=== PATIENT | female | born 1960 | race Caucasian/White ===

== ENCOUNTER 2021-07-07 15:55 | Inpatient (IN) | payer BC ==
[2021-07-07] MEDS ORDERED: Sodium Chloride 0.9% 10 ML Syringe FLUSH PRN (16:51)
[2021-07-07] MEDS ORDERED: Ketorolac 30 MG/ML SDV IVPUSH ONE ×2 (17:19→19:11)
--- NOTE | 2021-07-07 17:29 | EDM.PDOC ---
ED HPI GENERAL MEDICAL PROBLEM - General Chief Complaint: Respiratory Problem Stated Complaint: COUGH FEVER CHILLS Time Seen by Provider: 07/07/21 17:12 Source of Information: Reports: Patient, RN Notes Reviewed History Limitations: Reports: No Limitations - History of Present Illness INITIAL COMMENTS - FREE TEXT/NARRATIVE: Patient is a 60-year-old female who presents to the ER for evaluation of a cough fever and chills. States that she has been ill since [place] time with a cough, with some slight hemoptysis. Having a fever and chills with nausea and vomiting but no diarrhea. The patient was mildly hypoxic at the time of triage at 84% on room air. She was placed on 3-1/2 L of oxygen and she is getting O2 sats of around 90 to 91%. Patient's blood pressure is mildly low, at 79/57. She states that she has typically low blood pressure, but cannot tell me the actual values of what it typically is. She was not vaccinated for COVID or flu this year. Patient is having a little bit of back pain associated with this. Chest Pain Score (Numeric/FACES): 8 - Related Data Allergies Allergy/AdvReac Type Severity Reaction Status Date / Time sulfamethoxazole AdvReac Nervousness Verified 07/07/21 16:46 [From Bactrim] trimethoprim [From Bactrim] AdvReac Nervousness Verified 07/07/21 16:46 Home Meds: Home Meds . [No Known Home Meds] 07/07/21 [History] Past Medical History HEENT History: Reports: Impaired Vision Respiratory History: Reports: Other (See Below) Other Respiratory History: Bronchitis Social & Family History - Tobacco Use Tobacco Use Status *Q: Current Every Day Tobacco User Years of Tobacco use: 40 Packs/Tins Daily: 1 Used Tobacco, but Quit: No - Caffeine Use Caffeine Use: Reports: Coffee - Recreational Drug Use Recreational Drug Use: No ED ROS GENERAL - Review of Systems Review Of Systems: Comprehensive ROS is negative, except as noted in HPI. ED EXAM, GENERAL - Physical Exam Exam: See Below Exam Limited By: No Limitations General Appearance: Alert, WD/WN, No Apparent Distress Respiratory/Chest: No Respiratory Distress, Lungs Clear, Normal Breath Sounds, No Accessory Muscle Use, Chest Non-Tender Cardiovascular: Normal Peripheral Pulses, Regular Rate, Rhythm, No Edema GI/Abdominal: Normal Bowel Sounds, Soft, Non-Tender, No Distention, No Mass Extremities: Normal Inspection, Normal Capillary Refill Neurological: Alert, Oriented, Normal Cognition, No Motor/Sensory Deficits Psychiatric: Normal Affect, Normal Mood Skin Exam: Warm, Dry, Intact, Normal Color, No Rash Course - Vital Signs Last Recorded V/S: Last Vital Signs Temp 98.8 F 07/07/21 16:41 Pulse 79 07/07/21 18:29 Resp 20 07/07/21 18:29 BP 77/56 L 07/07/21 18:29 Pulse Ox 91 L 07/07/21 18:29 - Orders/Labs/Meds Orders: Active Orders 24 hr Category Date Time Status Patient Status [ADT] Routine ADT 07/07/21 19:00 Active Peripheral IV Care [RC] . DIRECTED Care 07/07/21 16:51 Active BLOOD CULTURE [MREF] Stat Lab 07/07/21 17:20 Ordered BLOOD CULTURE [MREF] Stat Lab 07/07/21 17:20 Ordered Sodium Chloride 0.9% [Normal Saline] 1,000 ml Med 07/07/21 18:30 Active IV ONETIME Sodium Chloride 0.9% [Normal Saline] 1,000 ml Med 07/07/21 18:37 Active IV ONETIME Sodium Chloride 0.9% [Saline Flush] Med 07/07/21 16:51 Active 10 ml FLUSH ASDIRECTED PRN cefTRIAXone [Rocephin] 2 gm Med 07/07/21 19:11 Ordered Sodium Chloride 0.9% [Normal Saline AdvBag] 100 ml IV ONETIME Blood Culture x2 Reflex Set [OM.PC] Stat Oth 07/07/21 17:20 Ordered Peripheral IV Insertion Adult [OM.PC] Routine Oth 07/07/21 16:51 Ordered Medication Orders Sodium Chloride (Normal Saline) 1,000 mls @ 999 mls/hr IV ONETIME ONE Stop: 07/07/21 19:30 Last Admin: 07/07/21 17:30 Dose: 999 mls/hr Documented by: CHANDLER Sodium Chloride (Normal Saline) 1,000 mls @ 999 mls/hr IV ONETIME ONE Stop: 07/07/21 19:37 Last Admin: 07/07/21 18:38 Dose: 999 mls/hr Documented by: CHANDLER Ceftriaxone Sodium 2 gm/ (Sodium Chloride) 100 mls @ 200 mls/hr IV ONETIME ONE Stop: 07/07/21 19:40 Sodium Chloride (Sodium Chloride 0.9% 10 Ml Syringe) 10 ml FLUSH ASDIRECTED PRN PRN Reason: Keep Vein Open Last Admin: 07/07/21 17:16 Dose: 10 ml Documented by: CHANDLER Labs: Laboratory Tests 07/07/21 07/07/21 07/07/21 Range/Units 16:50 17:17 17:17 WBC 10.19 H (3.98-10.04) K/mm3 RBC 5.15 (3.98-5.22) M/mm3 Hgb 16.2 H (11.2-15.7) gm/dl Hct 48.3 H (34.1-44.9) % MCV 93.8 (79.4-94.8) fl MCH 31.5 (25.6-32.2) pg MCHC 33.5 (32.2-35.5) g/dl RDW Std Deviation 44.0 (36.4-46.3) fL Plt Count 120 L (182-369) K/mm3 MPV 10.7 (9.4-12.3) fl Neut % (Auto) 91.4 H (34.0-71.1) % Lymph % (Auto) 6.2 L (19.3-51.7) % [place] % (Auto) 1.8 L (4.7-12.5) % Eos % (Auto) 0.1 L (0.7-5.8) Baso % (Auto) 0.1 (0.1-1.2) % Neut # (Auto) 9.32 H (1.56-6.13) K/mm3 Lymph # (Auto) 0.63 L (1.18-3.74) K/mm3 [place] # (Auto) 0.18 L (0.24-0.36) K/mm3 Eos # (Auto) 0.01 L (0.04-0.36) K/mm3 Baso # (Auto) 0.01 (0.01-0.08) K/mm3 D-Dimer, Quantitative (0.19-0.50) mg/L Sodium (136-145) mEq/L Potassium (3.5-5.1) mEq/L Chloride (98-107) mEq/L Carbon Dioxide (21-32) mEq/L Anion Gap (5-15) BUN (7-18) mg/dL Creatinine (0.55-1.02) mg/dL Est Cr Clr Drug Dosing mL/min Estimated GFR (MDRD) (>60) mL/min BUN/Creatinine Ratio (14-18) Glucose (70-99) mg/dL Lactic Acid (0.4-2.0) mmol/L Calcium (8.5-10.1) mg/dL Magnesium (1.8-2.4) mg/dL Total Bilirubin (0.2-1.0) mg/dL AST (15-37) U/L ALT (14-59) U/L Alkaline Phosphatase (46-116) U/L C-Reactive Protein 13.8 H* (<1.0) mg/dL Total Protein (6.4-8.2) g/dl Albumin (3.4-5.0) g/dl Globulin gm/dL Albumin/Globulin Ratio (1-2) Influenza Type A RNA Positive H (NEGATIVE) RSV RNA (INAAT) Negative (NEGATIVE) Influenza Type B RNA Negative (NEGATIVE) SARS-CoV-2 RNA (MARLINE) Negative (NEGATIVE) 07/07/21 07/07/21 07/07/21 Range/Units 17:17 17:17 17:17 WBC (3.98-10.04) K/mm3 RBC (3.98-5.22) M/mm3 Hgb (11.2-15.7) gm/dl Hct (34.1-44.9) % MCV (79.4-94.8) fl MCH (25.6-32.2) pg MCHC (32.2-35.5) g/dl RDW Std Deviation (36.4-46.3) fL Plt Count (182-369) K/mm3 MPV (9.4-12.3) fl Neut % (Auto) (34.0-71.1) % Lymph % (Auto) (19.3-51.7) % [place] % (Auto) (4.7-12.5) % Eos % (Auto) (0.7-5.8) Baso % (Auto) (0.1-1.2) % Neut # (Auto) (1.56-6.13) K/mm3 Lymph # (Auto) (1.18-3.74) K/mm3 [place] # (Auto) (0.24-0.36) K/mm3 Eos # (Auto) (0.04-0.36) K/mm3 Baso # (Auto) (0.01-0.08) K/mm3 D-Dimer, Quantitative 0.41 (0.19-0.50) mg/L Sodium 141 (136-145) mEq/L Potassium 4.0 (3.5-5.1) mEq/L Chloride 102 (98-107) mEq/L Carbon Dioxide 27 (21-32) mEq/L Anion Gap 16.0 H (5-15) BUN 15 (7-18) mg/dL Creatinine 1.2 H (0.55-1.02) mg/dL Est Cr Clr Drug Dosing 4.41 mL/min Estimated GFR (MDRD) 46 (>60) mL/min BUN/Creatinine Ratio 12.5 L (14-18) Glucose 122 H (70-99) mg/dL Lactic Acid 1.7 (0.4-2.0) mmol/L Calcium 8.1 L (8.5-10.1) mg/dL Magnesium 1.5 L (1.8-2.4) mg/dL Total Bilirubin 1.2 H (0.2-1.0) mg/dL AST 51 H (15-37) U/L ALT 44 (14-59) U/L Alkaline Phosphatase 58 (46-116) U/L C-Reactive Protein (<1.0) mg/dL Total Protein 6.8 (6.4-8.2) g/dl Albumin 3.2 L (3.4-5.0) g/dl Globulin 3.6 gm/dL Albumin/Globulin Ratio 0.9 L (1-2) Influenza Type A RNA (NEGATIVE) RSV RNA (INAAT) (NEGATIVE) Influenza Type B RNA (NEGATIVE) SARS-CoV-2 RNA (MARLINE) (NEGATIVE) Meds: Medications Generic Name Dose Route Start Last Admin Trade Name Freq PRN Reason Stop Dose Admin Sodium Chloride 1,000 mls @ 999 mls/hr 07/07/21 18:30 07/07/21 17:30 Normal Saline IV 07/07/21 19:30 999 mls/hr ONETIME ONE Administration Sodium Chloride 1,000 mls @ 999 mls/hr 07/07/21 18:37 07/07/21 18:38 Normal Saline IV 07/07/21 19:37 999 mls/hr ONETIME ONE Administration Ceftriaxone Sodium 2 gm/ 100 mls @ 200 mls/hr 07/07/21 19:11 Sodium Chloride IV 07/07/21 19:40 ONETIME ONE Sodium Chloride 10 ml 07/07/21 16:51 07/07/21 17:16 Sodium Chloride 0.9% 10 Ml Syringe FLUSH 10 ml ASDIRECTED PRN Administration Keep Vein Open Discontinued Medications Generic Name Dose Route Start Last Admin Trade Name Freq PRN Reason Stop Dose Admin Ampicillin Sodium/Sulbactam 100 mls @ 200 mls/hr 07/07/21 19:09 Sodium 3 gm/ Sodium Chloride IV 07/07/21 19:38 ONETIME ONE Ketorolac Tromethamine 30 mg 07/07/21 17:19 07/07/21 17:57 Ketorolac 30 Mg/Ml Sdv IVPUSH 07/07/21 17:20 30 mg ONETIME ONE Administration Ketorolac Tromethamine 30 mg 07/07/21 19:11 Ketorolac 30 Mg/Ml Sdv IVPUSH 07/07/21 19:12 ONETIME ONE Ondansetron HCl Confirm 07/07/21 17:12 07/07/21 17:58 Ondansetron 4 Mg/2 Ml Sdv Administered 07/07/21 17:13 Not Given Dose 4 mg .ROUTE .STK-MED ONE Ondansetron HCl 4 mg 07/07/21 17:57 07/07/21 17:58 Ondansetron 4 Mg/2 Ml Sdv IVPUSH 07/07/21 17:58 4 mg ONETIME ONE Administration - Re-Assessments/Exams Free Text/Narrative Re-Assessment/Exam: 07/07/21 17:26 Patient presents to the ER for evaluation of her fever chills and cough. Likely she has COVID-19 due to her hypoxia. Patient is stable at this time, big of IV fluids has been ordered along with Zofran at the time of triage. We will go ahead and give her some Toradol initial pain management. We will go ahead and do Covid/flu/RSV screen as well as some labs for ongoing management. 07/07/21 18:19 Patient's influenza A is positive and COVID and RSV were negative. Patient's white count mildly elevated at 10 0.19 with 91% neutrophils, metabolic panel demonstrates a creatinine slightly elevated 1.2, magnesium low at 1.5, lactic acid within normal limits at 1.7, CRP elevated at 13.8. D-dimer was within normal limits. Was able to look at the patient's chest x-ray, and there is concern for some haziness in the left lung field, possible pneumonia. Blood pressure still low at 77/56. 07/07/21 18:52 Patient states she is feeling better, and again assures me that her blood pressure typically low but thinks it is in the 90s systolically she is getting a second bag of fluids for this. Lactic acid was within normal limits, so it does not look as if she is septic but chest x-ray did come back as diffuse increased density within the left upper and left lower lung as well as the right lower lung findings most likely represent diffuse bilateral pneumonia. 07/07/21 19:15 Is able to speak with Dr. Alamo, our hospitalist on-call and he does accept the patient for admission. Departure - Departure Time of Disposition: 19:15 Disposition: Admitted As Inpatient 65 Condition: Fair Clinical Impression: Hypoxia, Influenza A Pneumonia Qualifiers: Pneumonia type: due to unspecified organism Laterality: right Lung location: upper lobe of lung Qualified Code(s): J18.9 - Pneumonia, unspecified organism - Discharge Information Referrals: Milind Rodriguez MD [Primary Care Provider] - Forms: ED Department Discharge Sepsis Event Note (ED) - Evaluation Sepsis Screening Result: Possible Sepsis Risk - Focused Exam Vital Signs: Vital Signs Temp Pulse Resp BP Pulse Ox 07/07/21 18:29 79 20 77/56 L 91 L 07/07/21 17:27 84 22 H 79/57 L 89 L 07/07/21 16:41 98.8 F 95 26 H 80/64 L 84 L - My Orders Last 24 Hours: My Active Orders 07/07/21 16:51 Peripheral IV Care [RC] . DIRECTED Sodium Chloride 0.9% [Saline Flush] 10 ml FLUSH ASDIRECTED PRN Peripheral IV Insertion Adult [OM.PC] Routine 07/07/21 17:20 BLOOD CULTURE [MREF] Stat BLOOD CULTURE [MREF] Stat Blood Culture x2 Reflex Set [OM.PC] Stat 07/07/21 18:30 Sodium Chloride 0.9% [Normal Saline] 1,000 ml IV ONETIME 07/07/21 18:37 Sodium Chloride 0.9% [Normal Saline] 1,000 ml IV ONETIME 07/07/21 19:00 Patient Status [ADT] Routine 07/07/21 19:11 cefTRIAXone [Rocephin] 2 gm Sodium Chloride 0.9% [Normal Saline AdvBag] 100 ml IV ONETIME - Assessment/Plan Last 24 Hours: My Active Orders 07/07/21 16:51 Peripheral IV Care [RC] . DIRECTED Sodium Chloride 0.9% [Saline Flush] 10 ml FLUSH ASDIRECTED PRN Peripheral IV Insertion Adult [OM.PC] Routine 07/07/21 17:20 BLOOD CULTURE [MREF] Stat BLOOD CULTURE [MREF] Stat Blood Culture x2 Reflex Set [OM.PC] Stat 07/07/21 18:30 Sodium Chloride 0.9% [Normal Saline] 1,000 ml IV ONETIME 07/07/21 18:37 Sodium Chloride 0.9% [Normal Saline] 1,000 ml IV ONETIME 07/07/21 19:00 Patient Status [ADT] Routine 07/07/21 19:11 cefTRIAXone [Rocephin] 2 gm Sodium Chloride 0.9% [Normal Saline AdvBag] 100 ml IV ONETIME
[2021-07-07 17:44] LABS: CORONAVIRUS COVID-19 NAA NEGATIVE (NEGATIVE)
[2021-07-07] MEDS ORDERED: Ondansetron 4 MG/2 ML SDV IVPUSH ONE (17:57)
[2021-07-07] MEDS: Ondansetron 4 MG/2 ML SDV ONE ×2 (17:57→17:58)
[2021-07-07] MEDS ORDERED: Sodium Chloride 0.9% 1,000 ML IV ONE ×2 (18:30→18:37)
--- NOTE | 2021-07-07 18:44 | CR ---
Chest: Portable view of the chest was obtained. Comparison: Prior CT chest of 02/22/19 and prior chest x-ray of . Heart size and mediastinum are normal. Patchy increased density is seen within the left upper and left lower lung as well as right lower lung. Bony structures show nothing acute. Impression: 1. Diffuse increased density within the left upper and left lower lung as well as right lower lung. Findings most likely represent diffuse bilateral pneumonia. Please correlate with patient's symptoms. Diagnostic code #3
[2021-07-07] MEDS ORDERED: Ampicillin/Sulbactam Na 3 GM in Sodium Chloride 0.9% 100 ML IV ONE (19:09)
[2021-07-07] MEDS ORDERED: cefTRIAXone 2 GM in Sodium Chloride 0.9% 100 ML IV ONE (19:11)
--- NOTE | 2021-07-07 20:36 | PCM.HP.2 ---
H&P History of Present Illness - General Date of Service: 07/07/21 Admit Problem/Dx: Admission Diagnosis/Problem Admission Diagnosis/Problem Hypoxia/influenza/pneumonia/pleurasy Source of Information: Patient, EMS Notes Reviewed, Provider History Limitations: Reports: No Limitations - History of Present Illness Initial Comments - Free Text/Narative: 60 year old female with fever chills cough body aches and malaise loss of appetite 3 days ago. nauseated but no vomiting . increasing left back pain and pleurisy left flank developing today . infl screen pos. and covid neg but no vaccinations to either. given i.v fluids for low b.p in e.r. p.e. vs as noted patient sats 92 rr 22 b.p 96/64 skin warm and perfusion good. tongue dry. throat mild redness. shows crackles in left and rt posterior lung umanzor. ? friction rub left anterior splinting slightly , cor rrr 112 abd benign. ext. no clubbing /cap refill good. neuro aox4 minor chest xray bilateral lower lobe infiltrates (lobar on left.) lab normal d dimer.43 normal. influenza a + /// cvoid -. assess: influenza with secondary pneumonia start Rocephin and azithromycin for community type pneumonia and consider ct scan for ruling out empyema (pleurisy left sided dullness and ? friction rub heard.) situation discussed with patient and and she is feeling better alr iqra so will reassess response overnight. boh Onset of Symptoms: Reports: Sudden Duration of Symptoms: Reports: Day(s): (4), Getting Worse Location: Reports: Chest Quality: Reports: Sharp Severity: Moderate Improves with: Reports: None Worsens with: Reports: Breathing Associated Symptoms: Reports: Cough, Fever/Chills, Loss of Appetite, Malaise, Nausea/Vomiting, Shortness of Breath Other HPI/Comments: left pleurisy Chest Pain Score (Numeric/FACES): 8 - Related Data Allergies/Adverse Reactions: Allergies Allergy/AdvReac Type Severity Reaction Status Date / Time sulfamethoxazole AdvReac Nervousness Verified 07/07/21 16:46 [From Bactrim] trimethoprim [From Bactrim] AdvReac Nervousness Verified 07/07/21 16:46 Home Medications: Home Meds . [No Known Home Meds] 07/07/21 [History] Past Medical History - Past Health History Medical/Surgical History: Denies Medical/Surgical History HEENT History: Reports: Impaired Vision Respiratory History: Reports: Other (See Below) Other Respiratory History: Bronchitis Social & Family History - Tobacco Use Tobacco Use Status *Q: Current Every Day Tobacco User Tobacco Use Within Last Twelve Months: Cigarettes Years of Tobacco use: 40 Packs/Tins Daily: 1 Used Tobacco, but Quit: No - Caffeine Use Caffeine Use: Reports: Coffee - Recreational Drug Use Recreational Drug Use: No H&P Review of Systems - Review of Systems: Review Of Systems: See Below General: Reports: Fever, Chills, Malaise, Decreased Appetite. Denies: Di aphoresis HEENT: Reports: No Symptoms Pulmonary: Reports: Shortness of Breath, Pleuritic Chest Pain, Hemoptysis Cardiovascular: Reports: No Symptoms Gastrointestinal: Reports: No Symptoms, Anorexia Genitourinary: Reports: No Symptoms Musculoskeletal: Reports: No Symptoms Skin: Reports: No Symptoms Psychiatric: Reports: No Symptoms Neurological: Reports: No Symptoms Hematologic/Lymphatic: Reports: No Symptoms Immunologic: Reports: No Symptoms Exam - Exam Exam: See Below - Vital Signs Vital Signs: Last Vital Signs Temp 37.1 C 07/07/21 16:41 Pulse 79 07/07/21 18:29 Resp 20 07/07/21 18:29 BP 77/56 L 07/07/21 18:29 Pulse Ox 91 L 07/07/21 18:29 Weight: 5.67 kg - Exam Quality Assessment: Supplemental Oxygen General: Alert, Oriented, 4 HEENT: PERRLA, Hearing Intact, Mucosa Moist & [place], Nares Patent, Normal Nasal Septum, Posterior Pharynx Clear, Conjunctiva Clear, EOMI, EACs Clear, TMs Clear Neck: Supple, Trachea Midline, 2 Lungs: Clear to Auscultation, Normal Respiratory Effort, Decreased Breath Sounds, Crackles, Other ( ?left anterior velcro sounds) Cardiovascular: Regular Rate, Regular Rhythm GI/Abdominal Exam: Normal Bowel Sounds, Soft, Non-Tender, No Organomegaly, No Distention, No Abnormal Bruit, No Mass, Pelvis Stable (Female) Exam: Normal External Exam, Normal Speculum Exam, Normal Bimanual Exam Rectal (Female) Exam: Normal Exam, Normal Rectal Tone Back Exam: Normal Inspection, Full Range of Motion, NT Extremities: Normal Inspection, Normal Range of Motion, Non-Tender, No Pedal Edema, Normal Capillary Refill Skin: Warm, Dry, Intact Neurological: Cranial Nerves Intact, Reflexes Equal Bilateral Neuro Extensive - Mental Status: Alert, Oriented x3, Normal Mood/Affect, Normal Cognition Neuro Extensive - Motor, Sensory, Reflexes: CN II-XII Intact, Normal Gait, Normal Reflexes Psychiatric: Alert, Normal Affect, Normal Mood - Patient Data Lab Results Last 24 hrs: Laboratory Results - last 24 hr 07/07/21 07/07/21 07/07/21 Range/Units 16:50 17:17 17:17 WBC 10.19 H (3.98-10.04) K/mm3 RBC 5.15 (3.98-5.22) M/mm3 Hgb 16.2 H (11.2-15.7) gm/dl Hct 48.3 H (34.1-44.9) % MCV 93.8 (79.4-94.8) fl MCH 31.5 (25.6-32.2) pg MCHC 33.5 (32.2-35.5) g/dl RDW Std Deviation 44.0 (36.4-46.3) fL Plt Count 120 L (182-369) K/mm3 MPV 10.7 (9.4-12.3) fl Neut % (Auto) 91.4 H (34.0-71.1) % Lymph % (Auto) 6.2 L (19.3-51.7) % [place]on % (Auto) 1.8 L (4.7-12.5) % Eos % (Auto) 0.1 L (0.7-5.8) Baso % (Auto) 0.1 (0.1-1.2) % Neut # (Auto) 9.32 H (1.56-6.13) K/mm3 Lymph # (Auto) 0.63 L (1.18-3.74) K/mm3 Weston # (Auto) 0.18 L (0.24-0.36) K/mm3 Eos # (Auto) 0.01 L (0.04-0.36) K/mm3 Baso # (Auto) 0.01 (0.01-0.08) K/mm3 Manual Slide Review Abnormal smear D-Dimer, Quantitative (0.19-0.50) mg/L Sodium (136-145) mEq/L Potassium (3.5-5.1) mEq/L Chloride (98-107) mEq/L Carbon Dioxide (21-32) mEq/L Anion Gap (5-15) BUN (7-18) mg/dL Creatinine (0.55-1.02) mg/dL Est Cr Clr Drug Dosing mL/min Estimated GFR (MDRD) (>60) mL/min BUN/Creatinine Ratio (14-18) Glucose (70-99) mg/dL Lactic Acid (0.4-2.0) mmol/L Calcium (8.5-10.1) mg/dL Magnesium (1.8-2.4) mg/dL Total Bilirubin (0.2-1.0) mg/dL AST (15-37) U/L ALT (14-59) U/L Alkaline Phosphatase (46-116) U/L C-Reactive Protein 13.8 H* (<1.0) mg/dL Total Protein (6.4-8.2) g/dl Albumin (3.4-5.0) g/dl Globulin gm/dL Albumin/Globulin Ratio (1-2) Influenza Type A RNA Positive H (NEGATIVE) RSV RNA (INAAT) Negative (NEGATIVE) Influenza Type B RNA Negative (NEGATIVE) SARS-CoV-2 RNA (MARLINE) Negative (NEGATIVE) 07/07/21 07/07/21 07/07/21 Range/Units 17:17 17:17 17:17 WBC (3.98-10.04) K/mm3 RBC (3.98-5.22) M/mm3 Hgb (11.2-15.7) gm/dl Hct (34.1-44.9) % MCV (79.4-94.8) fl MCH (25.6-32.2) pg MCHC (32.2-35.5) g/dl RDW Std Deviation (36.4-46.3) fL Plt Count (182-369) K/mm3 MPV (9.4-12.3) fl Neut % (Auto) (34.0-71.1) % Lymph % (Auto) (19.3-51.7) % Weston % (Auto) (4.7-12.5) % Eos % (Auto) (0.7-5.8) Baso % (Auto) (0.1-1.2) % Neut # (Auto) (1.56-6.13) K/mm3 Lymph # (Auto) (1.18-3.74) K/mm3 [place]on # (Auto) (0.24-0.36) K/mm3 Eos # (Auto) (0.04-0.36) K/mm3 Baso # (Auto) (0.01-0.08) K/mm3 Manual Slide Review D-Dimer, Quantitative 0.41 (0.19-0.50) mg/L Sodium 141 (136-145) mEq/L Potassium 4.0 (3.5-5.1) mEq/L Chloride 102 (98-107) mEq/L Carbon Dioxide 27 (21-32) mEq/L Anion Gap 16.0 H (5-15) BUN 15 (7-18) mg/dL Creatinine 1.2 H (0.55-1.02) mg/dL Est Cr Clr Drug Dosing 4.41 mL/min Estimated GFR (MDRD) 46 (>60) mL/min BUN/Creatinine Ratio 12.5 L (14-18) Glucose 122 H (70-99) mg/dL Lactic Acid 1.7 (0.4-2.0) mmol/L Calcium 8.1 L (8.5-10.1) mg/dL Magnesium 1.5 L (1.8-2.4) mg/dL Total Bilirubin 1.2 H (0.2-1.0) mg/dL AST 51 H (15-37) U/L ALT 44 (14-59) U/L Alkaline Phosphatase 58 (46-116) U/L C-Reactive Protein (<1.0) mg/dL Total Protein 6.8 (6.4-8.2) g/dl Albumin 3.2 L (3.4-5.0) g/dl Globulin 3.6 gm/dL Albumin/Globulin Ratio 0.9 L (1-2) Influenza Type A RNA (NEGATIVE) RSV RNA (INAAT) (NEGATIVE) Influenza Type B RNA (NEGATIVE) SARS-CoV-2 RNA (MARLINE) (NEGATIVE) Result Diagrams: 07/07/21 17:17 07/07/21 17:17 Sepsis Event Note - Evaluation Sepsis Screening Result: Possible Sepsis Risk Possible Source of Sepsis: Pulmonary - Focused Exam Vital Signs: Vital Signs Temp Pulse Resp BP Pulse Ox 07/07/21 18:29 79 20 77/56 L 91 L 07/07/21 17:27 84 22 H 79/57 L 89 L 07/07/21 16:41 37.1 C 95 26 H 80/64 L 84 L Respiratory Effort Without Exertion: Dyspneic Capillary Refill, Detail: Less than/Equal to (</=) 2 Seconds Pulse Description: 2+ Normal Peripheral Pulse Location: Radial Skin Exam (Focused Sepsis): Normal Turgor - Bedside Monitoring CVP Measures: Less than 8 Bedside Ultrasound Performed: No Passive Leg Raise/Fluid Bolus: Negative, Not Performed Date Bedside Monitoring was Performed: 07/07/21 Time Bedside Monitoring was Performed: 20:43 - Problem List (1) Chest pain, pleuritic SNOMED Code(s): 6135698 ICD Code: R07.81 - PLEURODYNIA Status: Acute Priority: Medium Current Visit: Yes Onset Date: ~07/07/21 Problem Details: left pleurisy (2) Thrombocytopenia SNOMED Code(s): 028727828 ICD Code: D69.6 - THROMBOCYTOPENIA, UNSPECIFIED Status: Acute Priority: Medium Current Visit: Yes Onset Date: ~07/07/21 Problem Details: will need eval . (3) Hypoxia SNOMED Code(s): 704202876 ICD Code: R09.02 - HYPOXEMIA Status: Acute Priority: Medium Current Visit: No Onset Date: ~07/07/21 Problem Details: underlying lung changes suggest copd (4) Influenza A SNOMED Code(s): 044066499 ICD Code: J10.1 - FLU DUE TO OTH IDENT INFLUENZA VIRUS W OTH RESP MANIFEST Status: Acute Priority: Medium Current Visit: No Onset Date: ~07/07/21 Problem Details: too late for tamiflu (5) Pneumonia SNOMED Code(s): 588900991 ICD Code: J18.9 - PNEUMONIA, UNSPECIFIED ORGANISM Status: Acute Priority: Medium Current Visit: No Onset Date: ~07/07/21 Problem Details: rocephin and azythromycin Qualifiers: Pneumonia type: due to unspecified organism Laterality: bilateral Lung location: upper lobe of lung Qualified Code(s): J18.9 - Pneumonia, unspecified organism Problem List Initiated/Reviewed/Updated: Yes Orders Last 24hrs: Active Orders 24 hr Category Date Time Status Patient Status [ADT] Routine ADT 07/07/21 19:00 Active Peripheral IV Care [RC] . DIRECTED Care 07/07/21 16:51 Active BLOOD CULTURE [MREF] Stat Lab 07/07/21 17:29 Received BLOOD CULTURE [MREF] Stat Lab 07/07/21 17:36 Received Sodium Chloride 0.9% [Saline Flush] Med 07/07/21 16:51 Active 10 ml FLUSH ASDIRECTED PRN Blood Culture x2 Reflex Set [OM.PC] Stat Oth 07/07/21 17:20 Ordered Peripheral IV Insertion Adult [OM.PC] Routine Oth 07/07/21 16:51 Ordered Medication Orders Sodium Chloride (Sodium Chloride 0.9% 10 Ml Syringe) 10 ml FLUSH ASDIRECTED PRN PRN Reason: Keep Vein Open Last Admin: 07/07/21 17:16 Dose: 10 ml Documented by: CHANDLER Assessment/Plan Comment:: [age] year old female with fever chills cough body aches and malaise loss of appetite 4 days ago. nauseated but no vomiting . increasing left back pain and pleurisy left flank developing today . infl screen pos. and covid neg but no vaccinations to either. given i.v fluids for low b.p in e.r. p.e. vs as noted patient sats 92 rr 22 b.p 96/64 skin warm and perfusion good. tongue dry. throat mild redness. shows crackles in left and rt posterior lung umanzor. ? friction rub left anterior splinting slightly , cor rrr 112 abd benign. ext. no clubbing /cap refill good. neuro aox4 minor chest xray bilateral lower lobe infiltrates (lobar on left.) lab normal d dimer.43 normal. influenza a + /// cvoid -. assess: influenza with secondary pneumonia start Rocephin and azithromycin for community type pneumonia and consider ct scan for ruling out empyema (pleurisy left sided dullness and ? friction rub heard.) situation discussed with patient and and she is feeling better already so will reassess response overnight. boh - Mortality Measure Prognosis:: Good
[2021-07-07] MEDS ORDERED: Acetaminophen 325 MG Tab PO PRN (20:51)
[2021-07-07] MEDS ORDERED: Pantoprazole 40 MG Vial ONE (20:51)
[2021-07-07] MEDS ORDERED: Ondansetron 4 MG Tab.DIS PO PRN (20:51)
[2021-07-07] MEDS ORDERED: Lactated Ringers 1,000 ML ONE (20:52)
[2021-07-07] MEDS ORDERED: Enoxaparin 30 MG/0.3 ML Syringe SUBCUT SCH (21:00)
[2021-07-07] MEDS ORDERED: Sodium Chloride 0.9% 500 ML IV ONE (21:05)
[2021-07-07] MEDS: Lactated Ringers 1,000 ML IV SCH (21:15)
[2021-07-07] MEDS ORDERED: Pantoprazole 40 MG Vial IVPUSH ONE (23:45)
[2021-07-07] MEDS: Azithromycin 500 MG in Sodium Chloride 0.9% 250 ML IV SCH (23:51)
[2021-07-07] MEDS: Acetaminophen/HYDROcodone 325-5 MG Tab PO PRN (23:54)
[2021-07-08] MEDS ORDERED: Enoxaparin 30 MG/0.3 ML Syringe SUBCUT SCH
[2021-07-08] MEDS: Zolpidem 5 MG Tab PO PRN (00:58)
[2021-07-08] MEDS ORDERED: Sodium Chloride 0.9% 500 ML IV ONE (01:15)
[2021-07-08] MEDS: Norepinephrine 4 MG in Dextrose 5% in Water 246 ML IV SCH ×4 (03:48→15:22)
[2021-07-08] MEDS: Acetaminophen/HYDROcodone 325-5 MG Tab PO PRN ×3 (05:40→18:59)
[2021-07-08] MEDS: Lactated Ringers 1,000 ML IV SCH ×2 (05:52→14:15)
--- NOTE | 2021-07-08 08:12 | PCM.PN ---
- General Info Date of Service: 07/08/21 Admission Dx/Problem (Free Text): Admission Diagnosis/Problem Admission Diagnosis/Problem Hypoxia/influenza/pneumonia/pleurasy Subjective Update: The patient is a 60-year-old lady who had been admitted to acute hospitalization yesterday due to hypoxia with influenza a and associated pneumonia. The patient has been on pressors for hypotension and is currently in the ICU. The patient is doing well. She has been tolerating her diet. She does not feel short of breath. She says she does not use oxygen at home. Functional Status: Reports: Pain Controlled, Tolerating Diet. Denies: New Symptoms - Review of Systems General: Reports: No Symptoms HEENT: Reports: No Symptoms Pulmonary: Reports: No Symptoms Cardiovascular: Reports: No Symptoms Gastrointestinal: Reports: No Symptoms Genitourinary: Reports: No Symptoms Musculoskeletal: Reports: No Symptoms Skin: Reports: No Symptoms Neurological: Reports: No Symptoms Psychiatric: Reports: No Symptoms - Patient Data Vitals - Most Recent: Last Vital Signs Temp 35.9 C L 07/07/21 23:10 Pulse 79 07/07/21 18:29 Resp 20 07/07/21 19:10 BP 82/59 L 07/07/21 23:10 Pulse Ox 93 L 07/07/21 20:54 Weight - Most Recent: 60.056 kg I&O - Last 24 Hours: Intake & Output 07/07/21 07/08/21 07/08/21 22:59 06:59 14:59 Intake Total 40 Output Total 100 Balance -60 Lab Results Last 24 Hours: Laboratory Results - last 24 hr 07/07/21 07/07/21 07/07/21 Range/Units 16:50 17:17 17:17 WBC 10.19 H (3.98-10.04) K/mm3 RBC 5.15 (3.98-5.22) M/mm3 Hgb 16.2 H (11.2-15.7) gm/dl Hct 48.3 H (34.1-44.9) % MCV 93.8 (79.4-94.8) fl MCH 31.5 (25.6-32.2) pg MCHC 33.5 (32.2-35.5) g/dl RDW Std Deviation 44.0 (36.4-46.3) fL Plt Count 120 L (182-369) K/mm3 MPV 10.7 (9.4-12.3) fl Neut % (Auto) 91.4 H (34.0-71.1) % Lymph % (Auto) 6.2 L (19.3-51.7) % [place] % (Auto) 1.8 L (4.7-12.5) % Eos % (Auto) 0.1 L (0.7-5.8) Baso % (Auto) 0.1 (0.1-1.2) % Neut # (Auto) 9.32 H (1.56-6.13) K/mm3 Lymph # (Auto) 0.63 L (1.18-3.74) K/mm3 [place] # (Auto) 0.18 L (0.24-0.36) K/mm3 Eos # (Auto) 0.01 L (0.04-0.36) K/mm3 Baso # (Auto) 0.01 (0.01-0.08) K/mm3 Manual Slide Review Abnormal smear ESR (0-20) mm/hr D-Dimer, Quantitative (0.19-0.50) mg/L Sodium (136-145) mEq/L Potassium (3.5-5.1) mEq/L Chloride (98-107) mEq/L Carbon Dioxide (21-32) mEq/L Anion Gap (5-15) BUN (7-18) mg/dL Creatinine (0.55-1.02) mg/dL Est Cr Clr Drug Dosing mL/min Estimated GFR (MDRD) (>60) mL/min BUN/Creatinine Ratio (14-18) Glucose (70-99) mg/dL Lactic Acid (0.4-2.0) mmol/L Calcium (8.5-10.1) mg/dL Magnesium (1.8-2.4) mg/dL Total Bilirubin (0.2-1.0) mg/dL AST (15-37) U/L ALT (14-59) U/L Alkaline Phosphatase (46-116) U/L C-Reactive Protein 13.8 H* (<1.0) mg/dL Total Protein (6.4-8.2) g/dl Albumin (3.4-5.0) g/dl Globulin gm/dL Albumin/Globulin Ratio (1-2) Influenza Type A RNA Positive H (NEGATIVE) RSV RNA (INAAT) Negative (NEGATIVE) Influenza Type B RNA Negative (NEGATIVE) SARS-CoV-2 RNA (MARLINE) Negative (NEGATIVE) 07/07/21 07/07/21 07/07/21 Range/Units 17:17 17:17 17:17 WBC (3.98-10.04) K/mm3 RBC (3.98-5.22) M/mm3 Hgb (11.2-15.7) gm/dl Hct (34.1-44.9) % MCV (79.4-94.8) fl MCH (25.6-32.2) pg MCHC (32.2-35.5) g/dl RDW Std Deviation (36.4-46.3) fL Plt Count (182-369) K/mm3 MPV (9.4-12.3) fl Neut % (Auto) (34.0-71.1) % Lymph % (Auto) (19.3-51.7) % [place] % (Auto) (4.7-12.5) % Eos % (Auto) (0.7-5.8) Baso % (Auto) (0.1-1.2) % Neut # (Auto) (1.56-6.13) K/mm3 Lymph # (Auto) (1.18-3.74) K/mm3 [place] # (Auto) (0.24-0.36) K/mm3 Eos # (Auto) (0.04-0.36) K/mm3 Baso # (Auto) (0.01-0.08) K/mm3 Manual Slide Review ESR (0-20) mm/hr D-Dimer, Quantitative 0.41 (0.19-0.50) mg/L Sodium 141 (136-145) mEq/L Potassium 4.0 (3.5-5.1) mEq/L Chloride 102 (98-107) mEq/L Carbon Dioxide 27 (21-32) mEq/L Anion Gap 16.0 H (5-15) BUN 15 (7-18) mg/dL Creatinine 1.2 H (0.55-1.02) mg/dL Est Cr Clr Drug Dosing 4.41 mL/min Estimated GFR (MDRD) 46 (>60) mL/min BUN/Creatinine Ratio 12.5 L (14-18) Glucose 122 H (70-99) mg/dL Lactic Acid 1.7 (0.4-2.0) mmol/L Calcium 8.1 L (8.5-10.1) mg/dL Magnesium 1.5 L (1.8-2.4) mg/dL Total Bilirubin 1.2 H (0.2-1.0) mg/dL AST 51 H (15-37) U/L ALT 44 (14-59) U/L Alkaline Phosphatase 58 (46-116) U/L C-Reactive Protein (<1.0) mg/dL Total Protein 6.8 (6.4-8.2) g/dl Albumin 3.2 L (3.4-5.0) g/dl Globulin 3.6 gm/dL Albumin/Globulin Ratio 0.9 L (1-2) Influenza Type A RNA (NEGATIVE) RSV RNA (INAAT) (NEGATIVE) Influenza Type B RNA (NEGATIVE) SARS-CoV-2 RNA (MARLINE) (NEGATIVE) 07/07/21 07/07/21 07/07/21 Range/Units 21:13 21:13 21:13 WBC 10.96 H (3.98-10.04) K/mm3 RBC 4.50 (3.98-5.22) M/mm3 Hgb 14.2 D (11.2-15.7) gm/dl Hct 42.2 (34.1-44.9) % MCV 93.8 (79.4-94.8) fl MCH 31.6 (25.6-32.2) pg MCHC 33.6 (32.2-35.5) g/dl RDW Std Deviation 43.9 (36.4-46.3) fL Plt Count 109 L (182-369) K/mm3 MPV 11.2 (9.4-12.3) fl Neut % (Auto) 93.6 H (34.0-71.1) % Lymph % (Auto) 4.2 L (19.3-51.7) % [place] % (Auto) 1.6 L (4.7-12.5) % Eos % (Auto) 0 L (0.7-5.8) Baso % (Auto) 0.1 (0.1-1.2) % Neut # (Auto) 10.26 H (1.56-6.13) K/mm3 Lymph # (Auto) 0.46 L (1.18-3.74) K/mm3 [place] # (Auto) 0.18 L (0.24-0.36) K/mm3 Eos # (Auto) 0.00 L (0.04-0.36) K/mm3 Baso # (Auto) 0.01 (0.01-0.08) K/mm3 Manual Slide Review Abnormal smear ESR 7 (0-20) mm/hr D-Dimer, Quantitative (0.19-0.50) mg/L Sodium 141 (136-145) mEq/L Potassium 3.9 (3.5-5.1) mEq/L Chloride 108 H (98-107) mEq/L Carbon Dioxide 22 (21-32) mEq/L Anion Gap 14.9 (5-15) BUN 14 (7-18) mg/dL Creatinine 0.3 L (0.55-1.02) mg/dL Est Cr Clr Drug Dosing 170.05 mL/min Estimated GFR (MDRD) > 60 (>60) mL/min BUN/Creatinine Ratio 46.7 H (14-18) Glucose 119 H (70-99) mg/dL Lactic Acid (0.4-2.0) mmol/L Calcium 6.8 L (8.5-10.1) mg/dL Magnesium (1.8-2.4) mg/dL Total Bilirubin 0.6 (0.2-1.0) mg/dL AST 34 (15-37) U/L ALT 34 (14-59) U/L Alkaline Phosphatase 45 L (46-116) U/L C-Reactive Protein 14.5 H* (<1.0) mg/dL Total Protein 4.9 L (6.4-8.2) g/dl Albumin 2.4 L (3.4-5.0) g/dl Globulin 2.5 gm/dL Albumin/Globulin Ratio 1.0 (1-2) Influenza Type A RNA (NEGATIVE) RSV RNA (INAAT) (NEGATIVE) Influenza Type B RNA (NEGATIVE) SARS-CoV-2 RNA (MARLINE) (NEGATIVE) Med Orders - Current: Current Medications Acetaminophen (Acetaminophen 325 Mg Tab) 650 mg PO Q4H PRN PRN Reason: Pain (Mild 1-3)/fever Hydrocodone Bitart/Acetaminophen (Acetaminophen/Hydrocodone 325-5 Mg Tab) 2 tab PO Q4H PRN PRN Reason: Pain (moderate 4-6) Last Admin: 07/08/21 05:40 Dose: 2 tab Documented by: Albuterol (Albuterol 0.083% 2.5 Mg/3 Ml Neb Soln) 2.5 mg NEB Q2H PRN PRN Reason: Shortness Of Breath/wheezing Enoxaparin Sodium (Enoxaparin 40 Mg/0.4 Ml Syringe) 40 mg SUBCUT BEDTIME ALFONSO Lactated Ringer's (Ringers, Lactated) 1,000 mls @ 125 mls/hr IV ASDIRECTED ALFONSO Last Admin: 07/07/21 21:15 Dose: 125 mls/hr Documented by: Ceftriaxone Sodium 2 gm/ (Sodium Chloride) 100 mls @ 200 mls/hr IV BEDTIME ALFONSO Azithromycin 500 mg/ Sodium (Chloride) 250 mls @ 250 mls/hr IV Q24H ALFONSO Last Admin: 07/07/21 23:51 Dose: 250 mls/hr Documented by: Lactated Ringer's (Ringers, Lactated) 1,000 mls @ 125 mls/hr IV ASDIRECTED ALFONSO Last Admin: 07/08/21 05:52 Dose: 125 mls/hr Documented by: Norepinephrine Bitartrate 4 mg (/ Dextrose/Water) 250 mls @ 7.5 mls/hr IV TITRATE ALFONSO; Protocol Last Titration: 07/08/21 06:52 Dose: 6 mcg/min, 22.5 mls/hr Documented by: Ibuprofen (Ibuprofen 600 Mg Tab) 600 mg PO Q6H PRN PRN Reason: Pain (moderate 4-6) Ondansetron HCl (Ondansetron 4 Mg Tab.Dis) 8 mg PO Q6H PRN PRN Reason: Nausea/Vomiting Sodium Chloride (Sodium Chloride 0.9% 10 Ml Syringe) 10 ml FLUSH ASDIRECTED PRN PRN Reason: Keep Vein Open Last Admin: 07/07/21 17:16 Dose: 10 ml Documented by: Zolpidem Tartrate (Zolpidem 5 Mg Tab) 5 mg PO BEDTIME PRN PRN Reason: Sleep Last Admin: 07/08/21 00:58 Dose: 5 mg Documented by: Discontinued Medications Enoxaparin Sodium (Enoxaparin 30 Mg/0.3 Ml Syringe) 30 mg SUBCUT BEDTIME ALFONSO Enoxaparin Sodium (Enoxaparin 30 Mg/0.3 Ml Syringe) 30 mg SUBCUT BEDTIME ALFONSO Last Admin: 07/08/21 00:05 Dose: 30 mg Documented by: Sodium Chloride (Normal Saline) 1,000 mls @ 999 mls/hr IV ONETIME ONE Stop: 07/07/21 19:30 Last Admin: 07/07/21 17:30 Dose: 999 mls/hr Documented by: Sodium Chloride (Normal Saline) 1,000 mls @ 999 mls/hr IV ONETIME ONE Stop: 07/07/21 19:37 Last Admin: 07/07/21 18:38 Dose: 999 mls/hr Documented by: Ampicillin Sodium/Sulbactam (Sodium 3 gm/ Sodium Chloride) 100 mls @ 200 mls/hr IV ONETIME ONE Stop: 07/07/21 19:38 Ceftriaxone Sodium 2 gm/ (Sodium Chloride) 100 mls @ 200 mls/hr IV ONETIME ONE Stop: 07/07/21 19:40 Last Admin: 07/07/21 19:36 Dose: 200 mls/hr Documented by: Lactated Ringer's (Ringers, Lactated) Confirm Administered Dose 1,000 mls @ as directed .ROUTE .STK-MED ONE Stop: 07/07/21 20:53 Last Admin: 07/08/21 07:32 Dose: Not Given Documented by: Sodium Chloride (Normal Saline) 500 mls @ 998.89 mls/hr IV .BOLUS ONE Stop: 07/07/21 21:06 Last Admin: 07/07/21 21:09 Dose: 998.89 mls/hr Documented by: Sodium Chloride (Normal Saline) 500 mls @ 998.89 mls/hr IV .BOLUS ONE Stop: 07/08/21 01:16 Last Admin: 07/08/21 01:41 Dose: 998.89 mls/hr Documented by: Ketorolac Tromethamine (Ketorolac 30 Mg/Ml Sdv) 30 mg IVPUSH ONETIME ONE Stop: 07/07/21 17:20 Last Admin: 07/07/21 17:57 Dose: 30 mg Documented by: Ketorolac Tromethamine (Ketorolac 30 Mg/Ml Sdv) 30 mg IVPUSH ONETIME ONE Stop: 07/07/21 19:12 Last Admin: 07/07/21 19:34 Dose: 30 mg Documented by: Ondansetron HCl (Ondansetron 4 Mg/2 Ml Sdv) Confirm Administered Dose 4 mg .ROUTE .STK-MED ONE Stop: 07/07/21 17:13 Last Admin: 07/07/21 17:58 Dose: Not Given Documented by: Ondansetron HCl (Ondansetron 4 Mg/2 Ml Sdv) 4 mg IVPUSH ONETIME ONE Stop: 07/07/21 17:58 Last Admin: 07/07/21 17:58 Dose: 4 mg Documented by: Pantoprazole Sodium (Pantoprazole 40 Mg Vial) 40 mg .XX ONETIME ONE Stop: 07/07/21 20:52 Last Admin: 07/08/21 07:32 Dose: Not Given Documented by: Pantoprazole Sodium (Pantoprazole 40 Mg Vial) 40 mg IVPUSH ONETIME ONE Stop: 07/07/21 23:46 Last Admin: 07/08/21 00:06 Dose: 40 mg Documented by: - Exam Quality Assessment: Supplemental Oxygen, DVT Prophylaxis General: Alert, Oriented HEENT: Pupils Equal, Pupils Reactive, EOMI Neck: Supple, Trachea Midline Lungs: Decreased Breath Sounds, Crackles Cardiovascular: Regular Rate, Regular Rhythm GI/Abdominal Exam: Normal Bowel Sounds, Soft, Non-Tender, No Distention (Female) Exam: Deferred Back Exam: Normal Inspection, Full Range of Motion Extremities: Normal Inspection, Normal Range of Motion, No Pedal Edema Skin: Warm, Dry, Intact Neurological: No New Focal Deficit, Normal Speech Psy/Mental Status: Alert, Normal Affect, Normal Mood - Patient Data Lab Results Last 24 hrs: Laboratory Results - last 24 hr 07/07/21 07/07/21 07/07/21 Range/Units 16:50 17:17 17:17 WBC 10.19 H (3.98-10.04) K/mm3 RBC 5.15 (3.98-5.22) M/mm3 Hgb 16.2 H (11.2-15.7) gm/dl Hct 48.3 H (34.1-44.9) % MCV 93.8 (79.4-94.8) fl MCH 31.5 (25.6-32.2) pg MCHC 33.5 (32.2-35.5) g/dl RDW Std Deviation 44.0 (36.4-46.3) fL Plt Count 120 L (182-369) K/mm3 MPV 10.7 (9.4-12.3) fl Neut % (Auto) 91.4 H (34.0-71.1) % Lymph % (Auto) 6.2 L (19.3-51.7) % [place] % (Auto) 1.8 L (4.7-12.5) % Eos % (Auto) 0.1 L (0.7-5.8) Baso % (Auto) 0.1 (0.1-1.2) % Neut # (Auto) 9.32 H (1.56-6.13) K/mm3 Lymph # (Auto) 0.63 L (1.18-3.74) K/mm3 [place] # (Auto) 0.18 L (0.24-0.36) K/mm3 Eos # (Auto) 0.01 L (0.04-0.36) K/mm3 Baso # (Auto) 0.01 (0.01-0.08) K/mm3 Manual Slide Review Abnormal smear ESR (0-20) mm/hr D-Dimer, Quantitative (0.19-0.50) mg/L Sodium (136-145) mEq/L Potassium (3.5-5.1) mEq/L Chloride (98-107) mEq/L Carbon Dioxide (21-32) mEq/L Anion Gap (5-15) BUN (7-18) mg/dL Creatinine (0.55-1.02) mg/dL Est Cr Clr Drug Dosing mL/min Estimated GFR (MDRD) (>60) mL/min BUN/Creatinine Ratio (14-18) Glucose (70-99) mg/dL Lactic Acid (0.4-2.0) mmol/L Calcium (8.5-10.1) mg/dL Magnesium (1.8-2.4) mg/dL Total Bilirubin (0.2-1.0) mg/dL AST (15-37) U/L ALT (14-59) U/L Alkaline Phosphatase (46-116) U/L C-Reactive Protein 13.8 H* (<1.0) mg/dL Total Protein (6.4-8.2) g/dl Albumin (3.4-5.0) g/dl Globulin gm/dL Albumin/Globulin Ratio (1-2) Influenza Type A RNA Positive H (NEGATIVE) RSV RNA (INAAT) Negative (NEGATIVE) Influenza Type B RNA Negative (NEGATIVE) SARS-CoV-2 RNA (MARLINE) Negative (NEGATIVE) 07/07/21 07/07/21 07/07/21 Range/Units 17:17 17:17 17:17 WBC (3.98-10.04) K/mm3 RBC (3.98-5.22) M/mm3 Hgb (11.2-15.7) gm/dl Hct (34.1-44.9) % MCV (79.4-94.8) fl MCH (25.6-32.2) pg MCHC (32.2-35.5) g/dl RDW Std Deviation (36.4-46.3) fL Plt Count (182-369) K/mm3 MPV (9.4-12.3) fl Neut % (Auto) (34.0-71.1) % Lymph % (Auto) (19.3-51.7) % [place] % (Auto) (4.7-12.5) % Eos % (Auto) (0.7-5.8) Baso % (Auto) (0.1-1.2) % Neut # (Auto) (1.56-6.13) K/mm3 Lymph # (Auto) (1.18-3.74) K/mm3 [place] # (Auto) (0.24-0.36) K/mm3 Eos # (Auto) (0.04-0.36) K/mm3 Baso # (Auto) (0.01-0.08) K/mm3 Manual Slide Review ESR (0-20) mm/hr D-Dimer, Quantitative 0.41 (0.19-0.50) mg/L Sodium 141 (136-145) mEq/L Potassium 4.0 (3.5-5.1) mEq/L Chloride 102 (98-107) mEq/L Carbon Dioxide 27 (21-32) mEq/L Anion Gap 16.0 H (5-15) BUN 15 (7-18) mg/dL Creatinine 1.2 H (0.55-1.02) mg/dL Est Cr Clr Drug Dosing 4.41 mL/min Estimated GFR (MDRD) 46 (>60) mL/min BUN/Creatinine Ratio 12.5 L (14-18) Glucose 122 H (70-99) mg/dL Lactic Acid 1.7 (0.4-2.0) mmol/L Calcium 8.1 L (8.5-10.1) mg/dL Magnesium 1.5 L (1.8-2.4) mg/dL Total Bilirubin 1.2 H (0.2-1.0) mg/dL AST 51 H (15-37) U/L ALT 44 (14-59) U/L Alkaline Phosphatase 58 (46-116) U/L C-Reactive Protein (<1.0) mg/dL Total Protein 6.8 (6.4-8.2) g/dl Albumin 3.2 L (3.4-5.0) g/dl Globulin 3.6 gm/dL Albumin/Globulin Ratio 0.9 L (1-2) Influenza Type A RNA (NEGATIVE) RSV RNA (INAAT) (NEGATIVE) Influenza Type B RNA (NEGATIVE) SARS-CoV-2 RNA (MARLINE) (NEGATIVE) 07/07/21 07/07/21 07/07/21 Range/Units 21:13 21:13 21:13 WBC 10.96 H (3.98-10.04) K/mm3 RBC 4.50 (3.98-5.22) M/mm3 Hgb 14.2 D (11.2-15.7) gm/dl Hct 42.2 (34.1-44.9) % MCV 93.8 (79.4-94.8) fl MCH 31.6 (25.6-32.2) pg MCHC 33.6 (32.2-35.5) g/dl RDW Std Deviation 43.9 (36.4-46.3) fL Plt Count 109 L (182-369) K/mm3 MPV 11.2 (9.4-12.3) fl Neut % (Auto) 93.6 H (34.0-71.1) % Lymph % (Auto) 4.2 L (19.3-51.7) % [place] % (Auto) 1.6 L (4.7-12.5) % Eos % (Auto) 0 L (0.7-5.8) Baso % (Auto) 0.1 (0.1-1.2) % Neut # (Auto) 10.26 H (1.56-6.13) K/mm3 Lymph # (Auto) 0.46 L (1.18-3.74) K/mm3 [place] # (Auto) 0.18 L (0.24-0.36) K/mm3 Eos # (Auto) 0.00 L (0.04-0.36) K/mm3 Baso # (Auto) 0.01 (0.01-0.08) K/mm3 Manual Slide Review Abnormal smear ESR 7 (0-20) mm/hr D-Dimer, Quantitative (0.19-0.50) mg/L Sodium 141 (136-145) mEq/L Potassium 3.9 (3.5-5.1) mEq/L Chloride 108 H (98-107) mEq/L Carbon Dioxide 22 (21-32) mEq/L Anion Gap 14.9 (5-15) BUN 14 (7-18) mg/dL Creatinine 0.3 L (0.55-1.02) mg/dL Est Cr Clr Drug Dosing 170.05 mL/min Estimated GFR (MDRD) > 60 (>60) mL/min BUN/Creatinine Ratio 46.7 H (14-18) Glucose 119 H (70-99) mg/dL Lactic Acid (0.4-2.0) mmol/L Calcium 6.8 L (8.5-10.1) mg/dL Magnesium (1.8-2.4) mg/dL Total Bilirubin 0.6 (0.2-1.0) mg/dL AST 34 (15-37) U/L ALT 34 (14-59) U/L Alkaline Phosphatase 45 L (46-116) U/L C-Reactive Protein 14.5 H* (<1.0) mg/dL Total Protein 4.9 L (6.4-8.2) g/dl Albumin 2.4 L (3.4-5.0) g/dl Globulin 2.5 gm/dL Albumin/Globulin Ratio 1.0 (1-2) Influenza Type A RNA (NEGATIVE) RSV RNA (INAAT) (NEGATIVE) Influenza Type B RNA (NEGATIVE) SARS-CoV-2 RNA (MARLINE) (NEGATIVE) Result Diagrams: 07/07/21 21:13 07/07/21 21:13 Sepsis Event Note - Evaluation Sepsis Screening Result: Possible Sepsis Risk - Focused Exam Vital Signs: Vital Signs Temp BP Pulse Ox 07/07/21 23:10 35.9 C L 82/59 L 07/07/21 20:54 93 L - Problem List & Annotations (1) Acute respiratory failure SNOMED Code(s): 15941644 Code(s): J96.00 - ACUTE RESPIRATORY FAILURE, UNSP W HYPOXIA OR HYPERCAPNIA Status: Acute Priority: High Current Visit: Yes Qualifiers: Respiratory failure complication: hypoxia Qualified Code(s): J96.01 - Acute respiratory failure with hypoxia (2) Thrombocytopenia SNOMED Code(s): 088632675 Code(s): D69.6 - THROMBOCYTOPENIA, UNSPECIFIED Status: Acute Priority: Medium Current Visit: Yes Onset Date: ~07/07/21 Annotation/Comment:: will need eval . (3) Hypoxia SNOMED Code(s): 985842947 Code(s): R09.02 - HYPOXEMIA Status: Acute Priority: Medium Current Visit: No Onset Date: ~07/07/21 Annotation/Comment:: underlying lung changes suggest copd (4) Influenza A SNOMED Code(s): 256069935 Code(s): J10.1 - FLU DUE TO OTH IDENT INFLUENZA VIRUS W OTH RESP MANIFEST Status: Acute Priority: Medium Current Visit: No Onset Date: ~07/07/21 Annotation/Comment:: too late for tamiflu (5) Pneumonia SNOMED Code(s): 391111049 Code(s): J18.9 - PNEUMONIA, UNSPECIFIED ORGANISM Status: Acute Priority: Medium Current Visit: No Onset Date: ~07/07/21 Qualifiers: Pneumonia type: due to unspecified organism Laterality: bilateral Lung location: upper lobe of lung Qualified Code(s): J18.9 - Pneumonia, unspecified organism Annotation/Comment:: rocephin and azythromycin - Problem List Review Problem List Initiated/Reviewed/Updated: Yes - Plan Plan:: [age] year old female with fever chills cough body aches and malaise loss of appetite 4 days ago. nauseated but no vomiting . increasing left back pain and pleurisy left flank developing today . infl screen pos. and covid neg but no vaccinations to either. given i.v fluids for low b.p in e.r. p.e. vs as noted patient sats 92 rr 22 b.p 96/64 skin warm and perfusion good. tongue dry. throat mild redness. shows crackles in left and rt posterior lung umanzor. ? friction rub left anterior splinting slightly , cor rrr 112 abd benign. ext. no clubbing /cap refill good. neuro aox4 minor chest xray bilateral lower lobe infiltrates (lobar on left.) lab normal d dimer.43 normal. influenza a + /// cvoid -. assess: influenza with secondary pneumonia start Rocephin and azithromycin for community type pneumonia and consider ct scan for ruling out empyema (pleurisy left sided dullness and ? friction rub heard.) situation discussed with patient and and she is feeling better already so will reassess response overnight. [facility] 07/08/2021 The patient is a 60-year-old lady who had been admitted secondary to influenza A and pneumonia. She is on antibiotics and these will be continued. The patient's oxygen support will be continued to keep her saturations around 92%. She is on a regular diet. The patient also has DVT prophylaxis with the use of Lovenox and is to be continued. She also has a history of pancytopenia and repeat laboratory studies have been ordered. Repeat chest x-ray has been ordered for the morning. We will monitor her platelets closely. There is 109,000 now. The patient has been encouraged to ambulate. The patient also reports that she has history of hypotension and is still on pressors. These will be weaned as needed to help keep her pressures normalized. The patient has been completely asymptomatic with regards to her hypotension. The patient should be appropriate for discharge in 1 to 2 days depending on pressor support.
[2021-07-08] MEDS: Albuterol 0.083% 2.5 MG/3 ML Neb Soln NEB PRN (08:49)
[2021-07-08] MEDS: cefTRIAXone 2 GM in Sodium Chloride 0.9% 100 ML IV SCH (21:48)
[2021-07-08] MEDS: Enoxaparin 40 MG/0.4 ML Syringe SUBCUT SCH (21:54)
[2021-07-08] MEDS: Azithromycin 500 MG in Sodium Chloride 0.9% 250 ML IV SCH (22:30)
[2021-07-09] MEDS: Ibuprofen 600 MG Tab PO PRN (00:20)
[2021-07-09] MEDS: Zolpidem 5 MG Tab PO PRN ×2 (00:22→20:58)
[2021-07-09] MEDS: Lactated Ringers 1,000 ML IV SCH ×2 (01:01→12:43)
[2021-07-09] MEDS: Norepinephrine 4 MG in Dextrose 5% in Water 246 ML IV SCH ×4 (02:44→11:07)
--- NOTE | 2021-07-09 08:20 | CR ---
Chest: Frontal view of the chest was obtained. Comparison: Prior chest x-ray of 07/07/21. Increased density is seen within the left mid and lower lung. This is more prominent than on prior study which represents an interval pleural effusion. Parenchymal density is felt to be fairly stable. There is increasing density within the right mid and lower lung which is slightly more prominent than on previous exam. Heart size and mediastinum are stable. Bony structures show nothing acute. Impression: 1. Increasing density within the left lung base most likely representing interval pleural effusion. Parenchymal density remains stable. 2. Parenchymal density within the right lung base which is more prominent than on prior study. Diagnostic code #3
[2021-07-09] MEDS: Codeine/guaiFENesin 10-100 MG/5 ML Syrup 5 ML Cup PO PRN ×4 (09:17→20:58)
--- NOTE | 2021-07-09 10:42 | PCM.PN ---
- General Info Date of Service: 07/09/21 Admission Dx/Problem (Free Text): Admission Diagnosis/Problem Admission Diagnosis/Problem Hypoxia/influenza/pneumonia/pleurisy Subjective Update: The patient is a 60-year-old lady who was admitted to acute hospitalization on 2020 due to hypoxia, influenza A and pneumonia. The patient has a history of hypotension and has been in the intensive care unit requiring pressors to keep her blood pressure up. The patient is completely asymptomatic from this. She says that she normally runs low blood pressures at home. She is doing well. She has been tolerating her diet. She does not use oxygen at home. The Robitussin and codeine has been helping her. Functional Status: Reports: Pain Controlled - Review of Systems General: Reports: No Symptoms HEENT: Reports: No Symptoms Pulmonary: Reports: Shortness of Breath, Cough Cardiovascular: Reports: No Symptoms Gastrointestinal: Reports: No Symptoms Genitourinary: Reports: No Symptoms Musculoskeletal: Reports: No Symptoms Skin: Reports: No Symptoms Neurological: Reports: No Symptoms Psychiatric: Reports: No Symptoms - Patient Data Vitals - Most Recent: Last Vital Signs Temp 36.6 C 07/09/21 08:00 Pulse 81 07/08/21 16:00 Resp 23 H 07/09/21 08:00 BP 98/68 07/09/21 08:00 Pulse Ox 93 L 07/09/21 08:57 Weight - Most Recent: 61.915 kg I&O - Last 24 Hours: Intake & Output 07/08/21 07/09/21 07/09/21 22:59 06:59 14:59 Intake Total 2413 360 Output Total 800 300 Balance 1613 -300 360 Lab Results Last 24 Hours: Laboratory Results - last 24 hr 07/08/21 07/09/21 07/09/21 Range/Units 12:05 05:41 05:41 WBC 12.83 H (3.98-10.04) K/mm3 RBC 4.30 (3.98-5.22) M/mm3 Hgb 13.4 (11.2-15.7) gm/dl Hct 41.0 (34.1-44.9) % MCV 95.3 H (79.4-94.8) fl MCH 31.2 (25.6-32.2) pg MCHC 32.7 (32.2-35.5) g/dl RDW Std Deviation 45.3 (36.4-46.3) fL Plt Count 108 L (182-369) K/mm3 MPV 12.1 (9.4-12.3) fl Neut % (Auto) 90.8 H (34.0-71.1) % Lymph % (Auto) 6.3 L (19.3-51.7) % [place] % (Auto) 2.1 L (4.7-12.5) % Eos % (Auto) 0.2 L (0.7-5.8) Baso % (Auto) 0.2 (0.1-1.2) % Neut # (Auto) 11.66 H (1.56-6.13) K/mm3 Lymph # (Auto) 0.81 L (1.18-3.74) K/mm3 [place] # (Auto) 0.27 (0.24-0.36) K/mm3 Eos # (Auto) 0.02 L (0.04-0.36) K/mm3 Baso # (Auto) 0.02 (0.01-0.08) K/mm3 Manual Slide Review Normal smear Sodium 141 (136-145) mEq/L Potassium 3.7 (3.5-5.1) mEq/L Chloride 106 (98-107) mEq/L Carbon Dioxide 27 (21-32) mEq/L Anion Gap 11.7 (5-15) BUN 10 (7-18) mg/dL Creatinine 0.8 (0.55-1.02) mg/dL Est Cr Clr Drug Dosing 63.77 mL/min Estimated GFR (MDRD) > 60 (>60) mL/min BUN/Creatinine Ratio 12.5 L (14-18) Glucose 104 H (70-99) mg/dL Calcium 8.0 L (8.5-10.1) mg/dL Total Bilirubin 0.5 (0.2-1.0) mg/dL AST 17 (15-37) U/L ALT 21 (14-59) U/L Alkaline Phosphatase 62 (46-116) U/L Total Protein 5.2 L (6.4-8.2) g/dl Albumin 2.0 L (3.4-5.0) g/dl Globulin 3.2 gm/dL Albumin/Globulin Ratio 0.6 L (1-2) Urine Color Yellow (Yellow) Urine Appearance Clear (Clear) Urine pH 5.5 (5.0-8.0) Ur Specific [place] > or = 1.030 (1.005-1.030) Urine Protein 2+ H (Negative) Urine Glucose (UA) Negative (Negative) Urine Ketones Trace H (Negative) Urine Occult Blood Negative (Negative) Urine Nitrite Negative (Negative) Urine Bilirubin 1+ H (Negative) Urine Urobilinogen 2.0 H (0.2-1.0) Ur Leukocyte Esterase Negative (Negative) U Hyaline Cast (Auto) 0-5 (0-5) /lpf Urine RBC 0-5 (0-5) /hpf Urine WBC 0-5 (0-5) /hpf Ur Squamous Epith Cells 5-10 H (0-5) /hpf Urine Bacteria Many H (FEW) /hpf Urine Mucus Few (FEW) /hpf Chris Results Last 24 Hours: Microbiology 07/07/21 17:36 Blood Culture - Preliminary Blood - Venous Streptococcus Pneumoniae 07/07/21 17:36 Bacteria Detection (PCR) - Final Blood Med Orders - Current: Current Medications Acetaminophen (Acetaminophen 325 Mg Tab) 650 mg PO Q4H PRN PRN Reason: Pain (Mild 1-3)/fever Hydrocodone Bitart/Acetaminophen (Acetaminophen/Hydrocodone 325-5 Mg Tab) 2 tab PO Q4H PRN PRN Reason: Pain (moderate 4-6) Last Admin: 07/08/21 18:59 Dose: 2 tab Documented by: Albuterol (Albuterol 0.083% 2.5 Mg/3 Ml Neb Soln) 2.5 mg NEB Q2H PRN PRN Reason: Shortness Of Breath/wheezing Last Admin: 07/08/21 08:49 Dose: 2.5 mg Documented by: Enoxaparin Sodium (Enoxaparin 40 Mg/0.4 Ml Syringe) 40 mg SUBCUT BEDTIME ALFONSO Last Admin: 07/08/21 21:54 Dose: 40 mg Documented by: Guaifenesin/Codeine Phosphate (Codeine/Guaifenesin 10-100 Mg/5 Ml Syrup 5 Ml Cup) 5 ml PO Q4H PRN PRN Reason: Cough Last Admin: 07/09/21 09:17 Dose: 5 ml Documented by: Lactated Ringer's (Ringers, Lactated) 1,000 mls @ 125 mls/hr IV ASDIRECTED ALFONSO Last Admin: 07/07/21 21:15 Dose: 125 mls/hr Documented by: Ceftriaxone Sodium 2 gm/ (Sodium Chloride) 100 mls @ 200 mls/hr IV BEDTIME ALFONSO Last Admin: 07/08/21 21:48 Dose: 200 mls/hr Documented by: Azithromycin 500 mg/ Sodium (Chloride) 250 mls @ 250 mls/hr IV Q24H ALFONSO Last Admin: 07/08/21 22:30 Dose: 250 mls/hr Documented by: Lactated Ringer's (Ringers, Lactated) 1,000 mls @ 125 mls/hr IV ASDIRECTED [facility] Last Admin: 07/09/21 01:01 Dose: 125 mls/hr Documented by: Norepinephrine Bitartrate 4 mg (/ Dextrose/Water) 250 mls @ 7.5 mls/hr IV TITRATE [facility]; Protocol Last Admin: 07/09/21 02:44 Dose: 8 mcg/min, 30 mls/hr Documented by: Ibuprofen (Ibuprofen 600 Mg Tab) 600 mg PO Q6H PRN PRN Reason: Pain (moderate 4-6) Last Admin: 07/09/21 00:20 Dose: 600 mg Documented by: Ondansetron HCl (Ondansetron 4 Mg Tab.Dis) 8 mg PO Q6H PRN PRN Reason: Nausea/Vomiting Sodium Chloride (Sodium Chloride 0.9% 10 Ml Syringe) 10 ml FLUSH ASDIRECTED PRN PRN Reason: Keep Vein Open Last Admin: 07/07/21 17:16 Dose: 10 ml Documented by: Zolpidem Tartrate (Zolpidem 5 Mg Tab) 5 mg PO BEDTIME PRN PRN Reason: Sleep Last Admin: 07/09/21 00:22 Dose: 5 mg Documented by: Discontinued Medications Enoxaparin Sodium (Enoxaparin 30 Mg/0.3 Ml Syringe) 30 mg SUBCUT BEDTIME ALFONSO Enoxaparin Sodium (Enoxaparin 30 Mg/0.3 Ml Syringe) 30 mg SUBCUT BEDTIME ALFONSO Last Admin: 07/08/21 00:05 Dose: 30 mg Documented by: Sodium Chloride (Normal Saline) 1,000 mls @ 999 mls/hr IV ONETIME ONE Stop: 07/07/21 19:30 Last Admin: 07/07/21 17:30 Dose: 999 mls/hr Documented by: Sodium Chloride (Normal Saline) 1,000 mls @ 999 mls/hr IV ONETIME ONE Stop: 07/07/21 19:37 Last Admin: 07/07/21 18:38 Dose: 999 mls/hr Documented by: Ampicillin Sodium/Sulbactam (Sodium 3 gm/ Sodium Chloride) 100 mls @ 200 mls/hr IV ONETIME ONE Stop: 07/07/21 19:38 Ceftriaxone Sodium 2 gm/ (Sodium Chloride) 100 mls @ 200 mls/hr IV ONETIME ONE Stop: 07/07/21 19:40 Last Admin: 07/07/21 19:36 Dose: 200 mls/hr Documented by: Lactated Ringer's (Ringers, Lactated) Confirm Administered Dose 1,000 mls @ as directed .ROUTE .STK-MED ONE Stop: 07/07/21 20:53 Last Admin: 07/08/21 07:32 Dose: Not Given Documented by: Sodium Chloride (Normal Saline) 500 mls @ 998.89 mls/hr IV .BOLUS ONE Stop: 07/07/21 21:06 Last Admin: 07/07/21 21:09 Dose: 998.89 mls/hr Documented by: Sodium Chloride (Normal Saline) 500 mls @ 998.89 mls/hr IV .BOLUS ONE Stop: 07/08/21 01:16 Last Admin: 07/08/21 01:41 Dose: 998.89 mls/hr Documented by: Ketorolac Tromethamine (Ketorolac 30 Mg/Ml Sdv) 30 mg IVPUSH ONETIME ONE Stop: 07/07/21 17:20 Last Admin: 07/07/21 17:57 Dose: 30 mg Documented by: Ketorolac Tromethamine (Ketorolac 30 Mg/Ml Sdv) 30 mg IVPUSH ONETIME ONE Stop: 07/07/21 19:12 Last Admin: 07/07/21 19:34 Dose: 30 mg Documented by: Ondansetron HCl (Ondansetron 4 Mg/2 Ml Sdv) Confirm Administered Dose 4 mg .ROUTE .STK-MED ONE Stop: 07/07/21 17:13 Last Admin: 07/07/21 17:58 Dose: Not Given Documented by: Ondansetron HCl (Ondansetron 4 Mg/2 Ml Sdv) 4 mg IVPUSH ONETIME ONE Stop: 07/07/21 17:58 Last Admin: 07/07/21 17:58 Dose: 4 mg Documented by: Pantoprazole Sodium (Pantoprazole 40 Mg Vial) 40 mg .XX ONETIME ONE Stop: 07/07/21 20:52 Last Admin: 07/08/21 07:32 Dose: Not Given Documented by: Pantoprazole Sodium (Pantoprazole 40 Mg Vial) 40 mg IVPUSH ONETIME ONE Stop: 07/07/21 23:46 Last Admin: 07/08/21 00:06 Dose: 40 mg Documented by: - Exam Quality Assessment: Supplemental Oxygen, DVT Prophylaxis General: Alert, Oriented, Cooperative HEENT: Pupils Equal, Pupils Reactive, EOMI, Mucous Membr. Moist/Alice Neck: Supple, Trachea Midline Lungs: Clear to Auscultation, Normal Respiratory Effort Cardiovascular: Regular Rate, Regular Rhythm GI/Abdominal Exam: Normal Bowel Sounds, Soft, Non-Tender, No Distention (Female) Exam: Deferred Back Exam: Normal Inspection, Full Range of Motion Extremities: Normal Inspection, Normal Range of Motion, No Pedal Edema Skin: Warm, Dry, Intact Neurological: No New Focal Deficit Psy/Mental Status: Alert, Normal Affect, Normal Mood - Patient Data Lab Results Last 24 hrs: Laboratory Results - last 24 hr 07/08/21 07/09/21 07/09/21 Range/Units 12:05 05:41 05:41 WBC 12.83 H (3.98-10.04) K/mm3 RBC 4.30 (3.98-5.22) M/mm3 Hgb 13.4 (11.2-15.7) gm/dl Hct 41.0 (34.1-44.9) % MCV 95.3 H (79.4-94.8) fl MCH 31.2 (25.6-32.2) pg MCHC 32.7 (32.2-35.5) g/dl RDW Std Deviation 45.3 (36.4-46.3) fL Plt Count 108 L (182-369) K/mm3 MPV 12.1 (9.4-12.3) fl Neut % (Auto) 90.8 H (34.0-71.1) % Lymph % (Auto) 6.3 L (19.3-51.7) % [place] % (Auto) 2.1 L (4.7-12.5) % Eos % (Auto) 0.2 L (0.7-5.8) Baso % (Auto) 0.2 (0.1-1.2) % Neut # (Auto) 11.66 H (1.56-6.13) K/mm3 Lymph # (Auto) 0.81 L (1.18-3.74) K/mm3 [place] # (Auto) 0.27 (0.24-0.36) K/mm3 Eos # (Auto) 0.02 L (0.04-0.36) K/mm3 Baso # (Auto) 0.02 (0.01-0.08) K/mm3 Manual Slide Review Normal smear Sodium 141 (136-145) mEq/L Potassium 3.7 (3.5-5.1) mEq/L Chloride 106 (98-107) mEq/L Carbon Dioxide 27 (21-32) mEq/L Anion Gap 11.7 (5-15) BUN 10 (7-18) mg/dL Creatinine 0.8 (0.55-1.02) mg/dL Est Cr Clr Drug Dosing 63.77 mL/min Estimated GFR (MDRD) > 60 (>60) mL/min BUN/Creatinine Ratio 12.5 L (14-18) Glucose 104 H (70-99) mg/dL Calcium 8.0 L (8.5-10.1) mg/dL Total Bilirubin 0.5 (0.2-1.0) mg/dL AST 17 (15-37) U/L ALT 21 (14-59) U/L Alkaline Phosphatase 62 (46-116) U/L Total Protein 5.2 L (6.4-8.2) g/dl Albumin 2.0 L (3.4-5.0) g/dl Globulin 3.2 gm/dL Albumin/Globulin Ratio 0.6 L (1-2) Urine Color Yellow (Yellow) Urine Appearance Clear (Clear) Urine pH 5.5 (5.0-8.0) Ur Specific [place] > or = 1.030 (1.005-1.030) Urine Protein 2+ H (Negative) Urine Glucose (UA) Negative (Negative) Urine Ketones Trace H (Negative) Urine Occult Blood Negative (Negative) Urine Nitrite Negative (Negative) Urine Bilirubin 1+ H (Negative) Urine Urobilinogen 2.0 H (0.2-1.0) Ur Leukocyte Esterase Negative (Negative) U Hyaline Cast (Auto) 0-5 (0-5) /lpf Urine RBC 0-5 (0-5) /hpf Urine WBC 0-5 (0-5) /hpf Ur Squamous Epith Cells 5-10 H (0-5) /hpf Urine Bacteria Many H (FEW) /hpf Urine Mucus Few (FEW) /hpf Result Diagrams: 07/09/21 05:41 07/09/21 05:41 Chris Results Last 24 hrs: Microbiology 07/07/21 17:36 Blood Culture - Preliminary Blood - Venous Streptococcus Pneumoniae 07/07/21 17:36 Bacteria Detection (PCR) - Final Blood Sepsis Event Note - Evaluation Sepsis Screening Result: No Definite Risk - Focused Exam Vital Signs: Vital Signs Temp Resp BP BP Pulse Ox Pulse Ox 07/09/21 08:57 93 L 07/09/21 08:00 36.6 C 23 H 98/68 94 L 07/09/21 05:20 93 L 07/09/21 04:00 36.4 C 24 H 98/64 92 L 07/09/21 02:30 25 H 98/68 91 L 07/09/21 02:29 23 H 91 L 07/09/21 02:15 25 H 107/67 93 L 07/09/21 02:14 25 H 93 L 07/09/21 02:01 25 H 93 L 07/09/21 02:00 22 H 104/71 93 L 07/09/21 01:59 23 H 93 L 07/09/21 01:45 22 H 102/66 94 L 07/09/21 01:44 24 H 93 L 07/09/21 01:30 26 H 91/66 93 L 07/09/21 01:29 23 H 93 L 07/09/21 01:15 23 H 90/62 93 L 07/09/21 01:14 17 95 07/09/21 01:01 25 H 92 L 07/09/21 01:00 25 H 100/65 93 L 07/09/21 00:59 25 H 92 L 07/09/21 00:48 19 89/67 L 93 L 07/09/21 00:47 21 H 93 L 07/09/21 00:30 26 H 86/62 L 91 L 07/09/21 00:29 17 91 L 07/09/21 00:15 22 H 95/69 93 L 07/09/21 00:14 27 H 91 L 07/09/21 00:01 23 H 90 L 07/09/21 00:00 36.7 C 24 H 94/62 88/62 L 90 L 07/08/21 23:59 26 H 90 L 07/08/21 23:45 22 H 94/63 93 L 07/08/21 23:44 23 H 94 L 07/08/21 23:30 22 H 88/63 L 93 L 07/08/21 23:29 22 H 93 L 07/08/21 23:15 23 H 90/61 94 L 07/08/21 23:14 19 94 L 07/08/21 23:01 23 H 93 L 07/08/21 23:00 22 H 90/64 93 L 07/08/21 22:59 23 H 93 L 07/08/21 22:45 24 H 95/67 93 L 07/08/21 22:44 26 H 93 L - Problem List & Annotations (1) Acute respiratory failure SNOMED Code(s): 32437305 Code(s): J96.00 - ACUTE RESPIRATORY FAILURE, UNSP W HYPOXIA OR HYPERCAPNIA Status: Acute Priority: High Current Visit: Yes Qualifiers: Respiratory failure complication: hypoxia Qualified Code(s): J96.01 - Acute respiratory failure with hypoxia (2) Thrombocytopenia SNOMED Code(s): 708379636 Code(s): D69.6 - THROMBOCYTOPENIA, UNSPECIFIED Status: Acute Priority: Medium Current Visit: Yes Onset Date: ~07/07/21 Annotation/Comment:: will need eval . (3) Hypoxia SNOMED Code(s): 901878550 Code(s): R09.02 - HYPOXEMIA Status: Acute Priority: Medium Current Visit: No Onset Date: ~07/07/21 Annotation/Comment:: underlying lung changes suggest copd (4) Influenza A SNOMED Code(s): 655754457 Code(s): J10.1 - FLU DUE TO OTH IDENT INFLUENZA VIRUS W OTH RESP MANIFEST Status: Acute Priority: Medium Current Visit: No Onset Date: ~07/07/21 Annotation/Comment:: too late for tamiflu (5) Pneumonia SNOMED Code(s): 338249418 Code(s): J18.9 - PNEUMONIA, UNSPECIFIED ORGANISM Status: Acute Priority: Medium Current Visit: No Onset Date: ~07/07/21 Qualifiers: Pneumonia type: due to unspecified organism Laterality: bilateral Lung location: upper lobe of lung Qualified Code(s): J18.9 - Pneumonia, unspecified organism Annotation/Comment:: rocephin and azythromycin - Problem List Review Problem List Initiated/Reviewed/Updated: Yes - My Orders Last 24 Hours: My Active Orders 07/08/21 12:05 CULTURE URINE [MREF] Stat 07/09/21 Breakfast Regular Diet [DIET] 07/09/21 08:43 Codeine/guaiFENesin [Robitussin AC] 5 ml PO Q4H PRN - Plan Plan:: [age] year old female with fever chills cough body aches and malaise loss of appetite 4 days ago. nauseated but no vomiting . increasing left back pain and pleurisy left flank developing today . infl screen pos. and covid neg but no vaccinations to either. given i.v fluids for low b.p in e.r. p.e. vs as noted patient sats 92 rr 22 b.p 96/64 skin warm and perfusion good. tongue dry. throat mild redness. shows crackles in left and rt posterior lung umanzor. ? friction rub left anterior splinting slightly , cor rrr 112 abd benign. ext. no clubbing /cap refill good. neuro aox4 minor chest xray bilateral lower lobe infiltrates (lobar on left.) lab normal d dimer.43 normal. influenza a + /// cvoid -. assess: influenza with secondary pneumonia start Rocephin and azithromycin for community type pneumonia and consider ct scan for ruling out empyema (pleurisy left sided dullness and ? friction rub heard.) situation discussed with patient and and she is feeling better already so will reassess response overnight. boh 07/08/2021 The patient is a 60-year-old lady who had been admitted secondary to influenza A and pneumonia. She is on antibiotics and these will be continued. The patient's oxygen support will be continued to keep her saturations around 92%. She is on a regular diet. The patient also has DVT prophylaxis with the use of Lovenox and is to be continued. She also has a history of pancytopenia and repeat laboratory studies have been ordered. Repeat chest x-ray has been ordere d for the morning. We will monitor her platelets closely. There is 109,000 now. The patient has been encouraged to ambulate. The patient also reports that she has history of hypotension and is still on pressors. These will be weaned as needed to help keep her pressures normalized. The patient has been completely asymptomatic with regards to her hypotension. The patient should be appropriate for discharge in 1 to 2 days depending on pressor support. 07/09/2021 The patient is a 60-year-old lady who is doing much better today. She is still requiring pressors to keep her blood pressure up however I have ordered her pressors to be tapered and the patient should be able to tolerate a systolic blood pressure in the low 90s millimeters of mercury. She does have a history of hypotension. I have also advanced the patient's diet to regular diet as tolerated in the case that the patient might be salt sensitive with regards to her hypotension. The patient will be continued on her antibiotics. Repeat chest x-ray shows increasing density possibly a pleural effusion on left side. Patient's oxygen will also be continued with titration to keep her saturations around 92%. She is also on Lovenox for DVT prophylaxis. Her thrombocytopenia has remained stable. Repeat laboratory studies have been ordered for the morning. The patient also has been encouraged to ambulate.
[2021-07-09] MEDS: methylPREDNISolone Sodium Succinate 125 MG/2 ML SDV IVPUSH SCH ×2 (11:45→21:08)
[2021-07-09] MEDS: Albuterol 0.083% 2.5 MG/3 ML Neb Soln NEB PRN ×3 (14:22→23:29)
--- NOTE | 2021-07-09 15:46 | PCM.SN.2 ---
- Free Text/Narrative Note: The patient's blood cultures have revealed Streptococcus pneumoniae and I have discontinued the patient's azithromycin and switched her to Levaquin 750 mg IV daily. This was recommended as an alternative therapy to vancomycin and cefepime. Awaiting JESSICA evaluation and sensitivities.
[2021-07-09] MEDS ORDERED: Levofloxacin/Dextrose 5%-Water 750 MG in Premix Bag 1 BAG IV SCH (16:00)
[2021-07-09] MEDS: Enoxaparin 40 MG/0.4 ML Syringe SUBCUT SCH (21:00)
[2021-07-09] MEDS: cefTRIAXone 2 GM in Sodium Chloride 0.9% 100 ML IV SCH (21:02)
[2021-07-10] MEDS: Codeine/guaiFENesin 10-100 MG/5 ML Syrup 5 ML Cup PO PRN ×5 (00:41→21:01)
[2021-07-10] MEDS: Ibuprofen 600 MG Tab PO PRN (00:41)
[2021-07-10] MEDS: methylPREDNISolone Sodium Succinate 125 MG/2 ML SDV IVPUSH SCH (05:14)
[2021-07-10] MEDS: Oseltamivir 75 MG Cap PO SCH ×2 (10:51→21:01)
--- NOTE | 2021-07-10 17:15 | PCM.PN ---
- General Info Date of Service: 07/10/21 Admission Dx/Problem (Free Text): Admission Diagnosis/Problem Admission Diagnosis/Problem Hypoxia/influenza/pneumonia/pleurisy Subjective Update: The patient is a 60-year-old lady who was admitted to acute hospitalization on 2020 due to hypoxia, influenza A and pneumonia secondary to strep pneumonia. The patient has a history of hypotension and has been in the intensive care unit requiring pressors. They were able to wean her pressors off yesterday. The patient is completely asymptomatic from this. She says that she normally runs low blood pressures at home. Systolic blood pressure is usually in the 90s. She is doing well. She has been tolerating her diet. She does not use oxygen at home. The Robitussin and codeine has been helping her. She states that she is feeling much better after being placed on high flow nasal cannula. Nursing also reports that she has had improved oxygen saturations since being placed on high flow nasal cannula. Functional Status: Reports: Pain Controlled - Review of Systems General: Reports: No Symptoms HEENT: Reports: No Symptoms Pulmonary: Reports: Shortness of Breath, Cough Cardiovascular: Reports: No Symptoms Gastrointestinal: Reports: No Symptoms Musculoskeletal: Reports: No Symptoms - Patient Data Vitals - Most Recent: Last Vital Signs Temp 96.9 F 07/10/21 08:00 Pulse 81 07/08/21 16:00 Resp 21 H 07/10/21 09:01 BP 93/67 07/10/21 09:00 Pulse Ox 93 L 07/10/21 16:48 Weight - Most Recent: 136 lb I&O - Last 24 Hours: Intake & Output 07/10/21 07/10/21 07/10/21 06:59 14:59 22:59 Intake Total 200 295 Output Total 500 Balance 200 -205 Chris Results Last 24 Hours: Microbiology 07/08/21 12:05 Urine Culture - Final Urine 07/07/21 17:29 Blood Culture - Preliminary Blood - Venous - Lab Draw Med Orders - Current: Current Medications Acetaminophen (Acetaminophen 325 Mg Tab) 650 mg PO Q4H PRN PRN Reason: Pain (Mild 1-3)/fever Hydrocodone Bitart/Acetaminophen (Acetaminophen/Hydrocodone 325-5 Mg Tab) 2 tab PO Q4H PRN PRN Reason: Pain (moderate 4-6) Last Admin: 07/08/21 18:59 Dose: 2 tab Documented by: Albuterol (Albuterol 0.083% 2.5 Mg/3 Ml Neb Soln) 2.5 mg NEB Q2H PRN PRN Reason: Shortness Of Breath/wheezing Last Admin: 07/09/21 23:29 Dose: 2.5 mg Documented by: Enoxaparin Sodium (Enoxaparin 40 Mg/0.4 Ml Syringe) 40 mg SUBCUT BEDTIME ALFONSO Last Admin: 07/09/21 21:00 Dose: 40 mg Documented by: Guaifenesin/Codeine Phosphate (Codeine/Guaifenesin 10-100 Mg/5 Ml Syrup 5 Ml Cup) 5 ml PO Q4H PRN PRN Reason: Cough Last Admin: 07/10/21 14:37 Dose: 5 ml Documented by: Ceftriaxone Sodium 2 gm/ (Sodium Chloride) 100 mls @ 200 mls/hr IV BEDTIME ALFONSO Last Admin: 07/09/21 21:02 Dose: 200 mls/hr Documented by: Norepinephrine Bitartrate 4 mg (/ Dextrose/Water) 250 mls @ 7.5 mls/hr IV TITRATE [facility]; Protocol Last Titration: 07/09/21 17:26 Dose: 0 mcg/min, 0 mls/hr Documented by: Ibuprofen (Ibuprofen 600 Mg Tab) 600 mg PO Q6H PRN PRN Reason: Pain (moderate 4-6) Last Admin: 07/10/21 00:41 Dose: 600 mg Documented by: Ondansetron HCl (Ondansetron 4 Mg Tab.Dis) 8 mg PO Q6H PRN PRN Reason: Nausea/Vomiting Last Admin: 07/09/21 11:59 Dose: 8 mg Documented by: Oseltamivir Phosphate (Oseltamivir 75 Mg Cap) 75 mg PO BID ALFONSO Last Admin: 07/10/21 10:51 Dose: 75 mg Documented by: Sodium Chloride (Sodium Chloride 0.9% 10 Ml Syringe) 10 ml FLUSH ASDIRECTED PRN PRN Reason: Keep Vein Open Last Admin: 07/07/21 17:16 Dose: 10 ml Documented by: Zolpidem Tartrate (Zolpidem 5 Mg Tab) 5 mg PO BEDTIME PRN PRN Reason: Sleep Last Admin: 07/09/21 20:58 Dose: 5 mg Documented by: Discontinued Medications Enoxaparin Sodium (Enoxaparin 30 Mg/0.3 Ml Syringe) 30 mg SUBCUT BEDTIME ALFONSO Enoxaparin Sodium (Enoxaparin 30 Mg/0.3 Ml Syringe) 30 mg SUBCUT BEDTIME [facility] Last Admin: 07/08/21 00:05 Dose: 30 mg Documented by: Sodium Chloride (Normal Saline) 1,000 mls @ 999 mls/hr IV ONETIME ONE Stop: 07/07/21 19:30 Last Admin: 07/07/21 17:30 Dose: 999 mls/hr Documented by: Sodium Chloride (Normal Saline) 1,000 mls @ 999 mls/hr IV ONETIME ONE Stop: 07/07/21 19:37 Last Admin: 07/07/21 18:38 Dose: 999 mls/hr Documented by: Ampicillin Sodium/Sulbactam (Sodium 3 gm/ Sodium Chloride) 100 mls @ 200 mls/hr IV ONETIME ONE Stop: 07/07/21 19:38 Ceftriaxone Sodium 2 gm/ (Sodium Chloride) 100 mls @ 200 mls/hr IV ONETIME ONE Stop: 07/07/21 19:40 Last Admin: 07/07/21 19:36 Dose: 200 mls/hr Documented by: Lactated Ringer's (Ringers, Lactated) Confirm Administered Dose 1,000 mls @ as directed .ROUTE .STK-MED ONE Stop: 07/07/21 20:53 Last Admin: 07/08/21 07:32 Dose: Not Given Documented by: Lactated Ringer's (Ringers, Lactated) 1,000 mls @ 125 mls/hr IV ASDIRECTED [facility] Last Admin: 07/09/21 12:43 Dose: 125 mls/hr Documented by: Azithromycin 500 mg/ Sodium (Chloride) 250 mls @ 250 mls/hr IV Q24H [facility] Last Admin: 07/08/21 22:30 Dose: 250 mls/hr Documented by: Sodium Chloride (Normal Saline) 500 mls @ 998.89 mls/hr IV .BOLUS ONE Stop: 07/07/21 21:06 Last Admin: 07/07/21 21:09 Dose: 998.89 mls/hr Documented by: Lactated Ringer's (Ringers, Lactated) 1,000 mls @ 125 mls/hr IV ASDIRECTED [facility] Last Admin: 07/09/21 01:01 Dose: 125 mls/hr Documented by: Sodium Chloride (Normal Saline) 500 mls @ 998.89 mls/hr IV .BOLUS ONE Stop: 07/08/21 01:16 Last Admin: 07/08/21 01:41 Dose: 998.89 mls/hr Documented by: Levofloxacin/Dextrose 750 mg/ (Premix) 150 mls @ 100 mls/hr IV Q24H [facility] Last Admin: 07/09/21 16:01 Dose: 100 mls/hr Documented by: Ketorolac Tromethamine (Ketorolac 30 Mg/Ml Sdv) 30 mg IVPUSH ONETIME ONE Stop: 07/07/21 17:20 Last Admin: 07/07/21 17:57 Dose: 30 mg Documented by: Ketorolac Tromethamine (Ketorolac 30 Mg/Ml Sdv) 30 mg IVPUSH ONETIME ONE Stop: 07/07/21 19:12 Last Admin: 07/07/21 19:34 Dose: 30 mg Documented by: Methylprednisolone Sodium Succinate (Methylprednisolone Sodium Succinate 125 Mg/2 Ml Sdv) 125 mg IVPUSH Q8H [facility] Last Admin: 07/10/21 05:14 Dose: 125 mg Documented by: Ondansetron HCl (Ondansetron 4 Mg/2 Ml Sdv) Confirm Administered Dose 4 mg .ROUTE .STK-MED ONE Stop: 07/07/21 17:13 Last Admin: 07/07/21 17:58 Dose: Not Given Documented by: Ondansetron HCl (Ondansetron 4 Mg/2 Ml Sdv) 4 mg IVPUSH ONETIME ONE Stop: 07/07/21 17:58 Last Admin: 07/07/21 17:58 Dose: 4 mg Documented by: Pantoprazole Sodium (Pantoprazole 40 Mg Vial) 40 mg .XX ONETIME ONE Stop: 07/07/21 20:52 Last Admin: 07/08/21 07:32 Dose: Not Given Documented by: Pantoprazole Sodium (Pantoprazole 40 Mg Vial) 40 mg IVPUSH ONETIME ONE Stop: 07/07/21 23:46 Last Admin: 07/08/21 00:06 Dose: 40 mg Documented by: - Exam Quality Assessment: Supplemental Oxygen General: Alert, Oriented HEENT: Pupils Equal, Mucous Membr. Moist/[place] Neck: Supple Lungs: Normal Respiratory Effort, Rales (Faint fine rales) Cardiovascular: Regular Rate, Regular Rhythm GI/Abdominal Exam: Normal Bowel Sounds, Soft, Non-Tender, No Distention Extremities: Normal Inspection, Normal Range of Motion, Non-Tender, No Pedal Edema, Normal Capillary Refill Skin: Warm, Dry, Intact Psy/Mental Status: Alert, Normal Affect, Normal Mood - Patient Data Result Diagrams: 07/09/21 05:41 07/09/21 05:41 Chris Results Last 24 hrs: Microbiology 07/08/21 12:05 Urine Culture - Final Urine 07/07/21 17:29 Blood Culture - Preliminary Blood - Venous - Lab Draw Sepsis Event Note - Evaluation Sepsis Screening Result: No Definite Risk - Focused Exam Vital Signs: Vital Signs Temp Resp BP Pulse Ox Pulse Ox Pulse Ox 07/10/21 16:48 93 L 93 L 07/10/21 13:57 94 L 07/10/21 09:01 21 H 93 L 07/10/21 09:00 17 93/67 94 L 07/10/21 08:59 27 H 93 L 07/10/21 08:19 96 07/10/21 08:01 23 H 95 07/10/21 08:00 96.9 F 21 H 92/62 95 07/10/21 07:59 24 H 96 07/10/21 07:01 91 L 07/10/21 07:00 18 90/57 L 92 L 07/10/21 06:59 92 L 07/10/21 06:01 24 H 87/57 L 94 L 07/10/21 06:00 23 H 94 L - Problem List & Annotations (1) Pneumococcal pneumonia (streptococcus pneumoniae pneumonia) SNOMED Code(s): 613457098 Code(s): J13 - PNEUMONIA DUE TO STREPTOCOCCUS PNEUMONIAE Status: Acute Current Visit: Yes (2) Acute respiratory failure SNOMED Code(s): 87517171 Code(s): J96.00 - ACUTE RESPIRATORY FAILURE, UNSP W HYPOXIA OR HYPERCAPNIA Status: Acute Priority: High Current Visit: Yes Qualifiers: Respiratory failure complication: hypoxia Qualified Code(s): J96.01 - Acute respiratory failure with hypoxia (3) Thrombocytopenia SNOMED Code(s): 635651050 Code(s): D69.6 - THROMBOCYTOPENIA, UNSPECIFIED Status: Acute Priority: Medium Current Visit: Yes Onset Date: ~07/07/21 Annotation/Comment:: will need eval . (4) Influenza A SNOMED Code(s): 282980097 Code(s): J10.1 - FLU DUE TO OTH IDENT INFLUENZA VIRUS W OTH RESP MANIFEST Status: Acute Priority: Medium Current Visit: No Onset Date: ~07/07/21 Annotation/Comment:: too late for tamiflu (5) Sepsis due to Streptococcus pneumoniae SNOMED Code(s): 633461335 Code(s): A40.3 - SEPSIS DUE TO STREPTOCOCCUS PNEUMONIAE Status: Acute Current Visit: Yes - Problem List Review Problem List Initiated/Reviewed/Updated: Yes - My Orders Last 24 Hours: My Active Orders 07/10/21 10:45 Oseltamivir [Tamiflu] 75 mg PO BID - Plan Plan:: [age] year old female with fever chills cough body aches and malaise loss of appetite 4 days ago. nauseated but no vomiting . increasing left back pain and pleurisy left flank developing today . infl screen pos. and covid neg but no vaccinations to either. given i.v fluids for low b.p in e.r. p.e. vs as noted patient sats 92 rr 22 b.p 96/64 skin warm and perfusion good. tongue dry. throat mild redness. shows crackles in left and rt posterior lung umanzor. ? friction rub left anterior splinting slightly , cor rrr 112 abd benign. ext. no clubbing /cap refill good. neuro aox4 minor chest xray bilateral lower lobe infiltrates (lobar on left.) lab normal d dimer.43 normal. influenza a + /// cvoid -. assess: influenza with secondary pneumonia start Rocephin and azithromycin for community type pneumonia and consider ct scan for ruling out empyema (pleurisy left sided dullness and ? friction rub heard.) situation discussed with patient and and she is feeling better already so will reassess response overnight. boh 07/08/2021 The patient is a 60-year-old lady who had been admitted secondary to influenza A and pneumonia. She is on antibiotics and these will be continued. The patient's oxygen support will be continued to keep her saturations around 92%. She is on a regular diet. The patient also has DVT prophylaxis with the use of Lovenox and is to be continued. She also has a history of pancytopenia and r epeat laboratory studies have been ordered. Repeat chest x-ray has been ordered for the morning. We will monitor her platelets closely. There is 109,000 now. The patient has been encouraged to ambulate. The patient also reports that she has history of hypotension and is still on pressors. These will be weaned as needed to help keep her pressures normalized. The patient has been completely asymptomatic with regards to her hypotension. The patient should be appropriate for discharge in 1 to 2 days depending on pressor support. 07/09/2021 The patient is a 60-year-old lady who is doing much better today. She is still requiring pressors to keep her blood pressure up however I have ordered her pressors to be tapered and the patient should be able to tolerate a systolic blood pressure in the low 90s millimeters of mercury. She does have a history of hypotension. I have also advanced the patient's diet to regular diet as tolerated in the case that the patient might be salt sensitive with regards to her hypotension. The patient will be continued on her antibiotics. Repeat chest x-ray shows increasing density possibly a pleural effusion on left side. Patient's oxygen will also be continued with titration to keep her saturations around 92%. She is also on Lovenox for DVT prophylaxis. Her thrombocytopenia has remained stable. Repeat laboratory studies have been ordered for the morning. The patient also has been encouraged to ambulate. July 10, 2021 60-year-old female with sepsis secondary to influenza A and streptococcal pneumoniae. Patient has respiratory failure with on high flow nasal cannula. Patient will be started on Tamiflu for her severe influenza A. Fortunately, they were able to wean off her pressors yesterday and blood pressures have been stable above 90 systolic. Patient's baseline is in the 90s systolic. Patient was started on high-dose Solu-Medrol yesterday with Levaquin. She is also on Rocephin 2 g every 24 hours. Rocephin should cover streptococcal pneumonia so Levaquin will be discontinued. Patient's lungs were without any wheezing and I see no clear benefit from Solu-Medrol at this time. I am going to hold the Solu-Medrol and recheck in the morning. Platelets are down to 108,000, likely secondary to sepsis. VTE prophylaxis with Lovenox CODE STATUS: Full code
[2021-07-10] MEDS: Enoxaparin 40 MG/0.4 ML Syringe SUBCUT SCH (21:00)
[2021-07-10] MEDS: cefTRIAXone 2 GM in Sodium Chloride 0.9% 100 ML IV SCH (21:01)
[2021-07-10] MEDS: Zolpidem 5 MG Tab PO PRN (21:01)
[2021-07-11] MEDS: Codeine/guaiFENesin 10-100 MG/5 ML Syrup 5 ML Cup PO PRN ×4 (04:52→20:55)
[2021-07-11] MEDS: Oseltamivir 75 MG Cap PO SCH ×2 (08:40→20:55)
[2021-07-11] MEDS: Albuterol/Ipratropium 3.0-0.5 MG/3 ML Neb Soln NEB PRN (08:51)
--- NOTE | 2021-07-11 09:41 | PCM.PN ---
- General Info Date of Service: 07/11/21 Admission Dx/Problem (Free Text): Admission Diagnosis/Problem Admission Diagnosis/Problem Hypoxia/influenza/pneumonia/pleurisy Subjective Update: The patient is a 60-year-old lady who was admitted to acute hospitalization on 2020 due to hypoxia, influenza A and pneumonia secondary to strep pneumonia. Functional Status: Reports: Pain Controlled - Review of Systems General: Reports: No Symptoms HEENT: Reports: No Symptoms Pulmonary: Reports: Shortness of Breath, Cough Cardiovascular: Reports: No Symptoms Gastrointestinal: Reports: No Symptoms Musculoskeletal: Reports: No Symptoms Skin: Reports: No Symptoms Psychiatric: Reports: No Symptoms - Patient Data Vitals - Most Recent: Last Vital Signs Temp 97.8 F 07/11/21 09:05 Pulse 81 07/08/21 16:00 Resp 21 H 07/11/21 09:05 BP 94/66 07/11/21 09:05 Pulse Ox 91 L 07/11/21 09:05 Weight - Most Recent: 136 lb I&O - Last 24 Hours: Intake & Output 07/10/21 07/11/21 07/11/21 22:59 06:59 14:59 Intake Total 120 220 Balance 120 220 Chris Results Last 24 Hours: Microbiology 07/07/21 17:36 Blood Culture - Preliminary Blood - Venous Streptococcus Pneumoniae 07/08/21 12:05 Urine Culture - Final Urine Med Orders - Current: Current Medications Acetaminophen (Acetaminophen 325 Mg Tab) 650 mg PO Q4H PRN PRN Reason: Pain (Mild 1-3)/fever Hydrocodone Bitart/Acetaminophen (Acetaminophen/Hydrocodone 325-5 Mg Tab) 2 tab PO Q4H PRN PRN Reason: Pain (moderate 4-6) Last Admin: 07/08/21 18:59 Dose: 2 tab Documented by: Albuterol (Albuterol 0.083% 2.5 Mg/3 Ml Neb Soln) 2.5 mg NEB Q2H PRN PRN Reason: Shortness Of Breath/wheezing Last Admin: 07/09/21 23:29 Dose: 2.5 mg Documented by: Albuterol/Ipratropium (Albuterol/Ipratropium 3.0-0.5 Mg/3 Ml Neb Soln) 3 ml NEB Q4HRRT PRN PRN Reason: sob/wheezing Last Admin: 07/11/21 08:51 Dose: 3 ml Documented by: Enoxaparin Sodium (Enoxaparin 40 Mg/0.4 Ml Syringe) 40 mg SUBCUT BEDTIME ALFONSO Last Admin: 07/10/21 21:00 Dose: 40 mg Documented by: Guaifenesin/Codeine Phosphate (Codeine/Guaifenesin 10-100 Mg/5 Ml Syrup 5 Ml Cup) 5 ml PO Q4H PRN PRN Reason: Cough Last Admin: 07/11/21 08:41 Dose: 5 ml Documented by: Ceftriaxone Sodium 2 gm/ (Sodium Chloride) 100 mls @ 200 mls/hr IV BEDTIME ALFONSO Last Admin: 07/10/21 21:01 Dose: 200 mls/hr Documented by: Norepinephrine Bitartrate 4 mg (/ Dextrose/Water) 250 mls @ 7.5 mls/hr IV TITRATE [facility]; Protocol Last Titration: 07/09/21 17:26 Dose: 0 mcg/min, 0 mls/hr Documented by: Ibuprofen (Ibuprofen 600 Mg Tab) 600 mg PO Q6H PRN PRN Reason: Pain (moderate 4-6) Last Admin: 07/10/21 00:41 Dose: 600 mg Documented by: Ondansetron HCl (Ondansetron 4 Mg Tab.Dis) 8 mg PO Q6H PRN PRN Reason: Nausea/Vomiting Last Admin: 07/09/21 11:59 Dose: 8 mg Documented by: Oseltamivir Phosphate (Oseltamivir 75 Mg Cap) 75 mg PO BID [facility] Last Admin: 07/11/21 08:40 Dose: 75 mg Documented by: Sodium Chloride (Sodium Chloride 0.9% 10 Ml Syringe) 10 ml FLUSH ASDIRECTED PRN PRN Reason: Keep Vein Open Last Admin: 07/07/21 17:16 Dose: 10 ml Documented by: Zolpidem Tartrate (Zolpidem 5 Mg Tab) 5 mg PO BEDTIME PRN PRN Reason: Sleep Last Admin: 07/10/21 21:01 Dose: 5 mg Documented by: Discontinued Medications Enoxaparin Sodium (Enoxaparin 30 Mg/0.3 Ml Syringe) 30 mg SUBCUT BEDTIME ALFONSO Enoxaparin Sodium (Enoxaparin 30 Mg/0.3 Ml Syringe) 30 mg SUBCUT BEDTIME ALFONSO Last Admin: 07/08/21 00:05 Dose: 30 mg Documented by: Sodium Chloride (Normal Saline) 1,000 mls @ 999 mls/hr IV ONETIME ONE Stop: 07/07/21 19:30 Last Admin: 07/07/21 17:30 Dose: 999 mls/hr Documented by: Sodium Chloride (Normal Saline) 1,000 mls @ 999 mls/hr IV ONETIME ONE Stop: 07/07/21 19:37 Last Admin: 07/07/21 18:38 Dose: 999 mls/hr Documented by: Ampicillin Sodium/Sulbactam (Sodium 3 gm/ Sodium Chloride) 100 mls @ 200 mls/hr IV ONETIME ONE Stop: 07/07/21 19:38 Ceftriaxone Sodium 2 gm/ (Sodium Chloride) 100 mls @ 200 mls/hr IV ONETIME ONE Stop: 07/07/21 19:40 Last Admin: 07/07/21 19:36 Dose: 200 mls/hr Documented by: Lactated Ringer's (Ringers, Lactated) Confirm Administered Dose 1,000 mls @ as directed .ROUTE .[facility]-MED ONE Stop: 07/07/21 20:53 Last Admin: 07/08/21 07:32 Dose: Not Given Documented by: Lactated Ringer's (Ringers, Lactated) 1,000 mls @ 125 mls/hr IV ASDIRECTED [facility] Last Admin: 07/09/21 12:43 Dose: 125 mls/hr Documented by: Azithromycin 500 mg/ Sodium (Chloride) 250 mls @ 250 mls/hr IV Q24H [facility] Last Admin: 07/08/21 22:30 Dose: 250 mls/hr Documented by: Sodium Chloride (Normal Saline) 500 mls @ 998.89 mls/hr IV .BOLUS ONE Stop: 07/07/21 21:06 Last Admin: 07/07/21 21:09 Dose: 998.89 mls/hr Documented by: Lactated Ringer's (Ringers, Lactated) 1,000 mls @ 125 mls/hr IV ASDIRECTED [facility] Last Admin: 07/09/21 01:01 Dose: 125 mls/hr Documented by: Sodium Chloride (Normal Saline) 500 mls @ 998.89 mls/hr IV .BOLUS ONE Stop: 07/08/21 01:16 Last Admin: 07/08/21 01:41 Dose: 998.89 mls/hr Documented by: Levofloxacin/Dextrose 750 mg/ (Premix) 150 mls @ 100 mls/hr IV Q24H [facility] Last Admin: 07/09/21 16:01 Dose: 100 mls/hr Documented by: Ketorolac Tromethamine (Ketorolac 30 Mg/Ml Sdv) 30 mg IVPUSH ONETIME ONE Stop: 07/07/21 17:20 Last Admin: 07/07/21 17:57 Dose: 30 mg Documented by: Ketorolac Tromethamine (Ketorolac 30 Mg/Ml Sdv) 30 mg IVPUSH ONETIME ONE Stop: 07/07/21 19:12 Last Admin: 07/07/21 19:34 Dose: 30 mg Documented by: Methylprednisolone Sodium Succinate (Methylprednisolone Sodium Succinate 125 Mg/2 Ml Sdv) 125 mg IVPUSH Q8H [facility] Last Admin: 07/10/21 05:14 Dose: 125 mg Documented by: Ondansetron HCl (Ondansetron 4 Mg/2 Ml Sdv) Confirm Administered Dose 4 mg .ROUTE .[facility]-MED ONE Stop: 07/07/21 17:13 Last Admin: 07/07/21 17:58 Dose: Not Given Documented by: Ondansetron HCl (Ondansetron 4 Mg/2 Ml Sdv) 4 mg IVPUSH ONETIME ONE Stop: 07/07/21 17:58 Last Admin: 07/07/21 17:58 Dose: 4 mg Documented by: Pantoprazole Sodium (Pantoprazole 40 Mg Vial) 40 mg .XX ONETIME ONE Stop: 07/07/21 20:52 Last Admin: 07/08/21 07:32 Dose: Not Given Documented by: Pantoprazole Sodium (Pantoprazole 40 Mg Vial) 40 mg IVPUSH ONETIME ONE Stop: 07/07/21 23:46 Last Admin: 07/08/21 00:06 Dose: 40 mg Documented by: - Exam Quality Assessment: Supplemental Oxygen General: Alert, Oriented HEENT: Pupils Equal, Mucous Membr. Moist/[place] Neck: Supple Lungs: Decreased Breath Sounds, Wheezing (Mild expiratory wheeze best heard in the left anterior chest). No: Normal Respiratory Effort Cardiovascular: Regular Rate, Regular Rhythm GI/Abdominal Exam: Normal Bowel Sounds, Soft, Non-Tender, No Distention Extremities: Normal Inspection, Normal Range of Motion, Non-Tender, No Pedal Edema, Normal Capillary Refill Skin: Warm, Dry, Intact Psy/Mental Status: Alert, Normal Affect, Normal Mood - Patient Data Result Diagrams: 07/11/21 10:21 07/11/21 10:21 Chris Results Last 24 hrs: Microbiology 07/07/21 17:36 Blood Culture - Preliminary Blood - Venous Streptococcus Pneumoniae 07/08/21 12:05 Urine Culture - Final Urine Sepsis Event Note - Evaluation Sepsis Screening Result: No Definite Risk - Focused Exam Vital Signs: Vital Signs Temp Resp BP BP Pulse Ox Pulse Ox 07/11/21 09:05 97.8 F 21 H 94/66 91 L 07/11/21 08:51 95 07/11/21 06:01 25 H 93 L 07/11/21 06:00 25 H 96/61 93 L 07/11/21 05:59 25 H 94 L 07/11/21 05:00 23 H 90 L 07/11/21 04:01 25 H 91 L 07/11/21 04:00 97.8 F 26 H 99/64 99/64 91 L 07/11/21 03:59 27 H 91 L 07/11/21 03:00 22 H 93 L 07/11/21 02:01 28 H 91 L 07/11/21 02:00 27 H 97/62 91 L 07/11/21 01:59 26 H 91 L 07/11/21 01:00 16 91 L 07/11/21 00:01 29 H 91 L 07/11/21 00:00 97.2 F 30 H 95/59 L 95/59 L 91 L 07/10/21 23:59 29 H 91 L 07/10/21 23:00 28 H 91 L 07/10/21 22:01 21 H 93 L 07/10/21 22:00 26 H 97/63 93 L 07/10/21 21:59 27 H 94 L - Problem List & Annotations (1) Pneumococcal pneumonia (streptococcus pneumoniae pneumonia) SNOMED Code(s): 640231131 Code(s): J13 - PNEUMONIA DUE TO STREPTOCOCCUS PNEUMONIAE Status: Acute Current Visit: Yes (2) Acute respiratory failure SNOMED Code(s): 62989606 Code(s): J96.00 - ACUTE RESPIRATORY FAILURE, UNSP W HYPOXIA OR HYPERCAPNIA Status: Acute Priority: High Current Visit: Yes Qualifiers: Respiratory failure complication: hypoxia Qualified Code(s): J96.01 - Acute respiratory failure with hypoxia (3) Thrombocytopenia SNOMED Code(s): 126882999 Code(s): D69.6 - THROMBOCYTOPENIA, UNSPECIFIED Status: Acute Priority: Me dium Current Visit: Yes Onset Date: ~07/07/21 Annotation/Comment:: will need eval . (4) Influenza A SNOMED Code(s): 144867367 Code(s): J10.1 - FLU DUE TO OTH IDENT INFLUENZA VIRUS W OTH RESP MANIFEST Status: Acute Priority: Medium Current Visit: No Onset Date: ~07/07/21 Annotation/Comment:: too late for tamiflu (5) Sepsis due to Streptococcus pneumoniae SNOMED Code(s): 447518186 Code(s): A40.3 - SEPSIS DUE TO STREPTOCOCCUS PNEUMONIAE Status: Acute Current Visit: Yes - Problem List Review Problem List Initiated/Reviewed/Updated: Yes - My Orders Last 24 Hours: My Active Orders 07/10/21 10:45 Oseltamivir [Tamiflu] 75 mg PO BID 07/10/21 17:18 Blood Culture x2 Reflex Set [OM.PC] Stat 07/10/21 17:41 BLOOD CULTURE [MREF] Stat BLOOD CULTURE [MREF] Stat 07/11/21 08:43 Albuterol/Ipratropium [DuoNeb 3.0-0.5 MG/3 ML] 3 ml NEB Q4HRRT PRN - Plan Plan:: [age] year old female with fever chills cough body aches and malaise loss of appetite 4 days ago. nauseated but no vomiting . increasing left back pain and pleurisy left flank developing today . infl screen pos. and covid neg but no vaccinations to either. given i.v fluids for low b.p in e.r. p.e. vs as noted patient sats 92 rr 22 b.p 96/64 skin warm and perfusion good. tongue dry. throat mild redness. shows crackles in left and rt posterior lung umanzor. ? friction rub left anterior splinting slightly , cor rrr 112 abd benign. ext. no clubbing /cap refill good. neuro aox4 minor chest xray bilateral lower lobe infiltrates (lobar on left.) lab normal d dimer.43 normal. influenza a + /// cvoid -. assess: influenza with secondary pneumonia start Rocephin and azithromycin for community type pneumonia and consider ct scan for ruling out empyema (pleurisy left sided dullness and ? friction rub heard.) situation discussed with patient and and she is feeling better already so will reassess response overnight. [facility] 07/08/2021 The patient is a 60-year-old lady who had been admitted secondary to influenza A and pneumonia. She is on antibiotics and these will be continued. The patient's oxygen support will be continued to keep her saturations around 92%. She is on a regular diet. The patient also has DVT prophylaxis with the use of Lovenox and is to be continued. She also has a history of pancytopenia and repeat laboratory studies have been ordered. Repeat chest x-ray has been orde red for the morning. We will monitor her platelets closely. There is 109,000 now. The patient has been encouraged to ambulate. The patient also reports that she has history of hypotension and is still on pressors. These will be weaned as needed to help keep her pressures normalized. The patient has been completely asymptomatic with regards to her hypotension. The patient should be appropriate for discharge in 1 to 2 days depending on pressor support. 07/09/2021 The patient is a 60-year-old lady who is doing much better today. She is still requiring pressors to keep her blood pressure up however I have ordered her pressors to be tapered and the patient should be able to tolerate a systolic blood pressure in the low 90s millimeters of mercury. She does have a history of hypotension. I have also advanced the patient's diet to regular diet as tolerated in the case that the patient might be salt sensitive with regards to her hypotension. The patient will be continued on her antibiotics. Repeat chest x-ray shows increasing density possibly a pleural effusion on left side. Patient's oxygen will also be continued with titration to keep her saturations around 92%. She is also on Lovenox for DVT prophylaxis. Her thrombocytopenia has remained stable. Repeat laboratory studies have been ordered for the morning. The patient also has been encouraged to ambulate. July 10, 2021 60-year-old female with sepsis secondary to influenza A and streptococcal pneumoniae. Patient has respiratory failure with on high flow nasal cannula. Patient will be started on Tamiflu for her severe influenza A. Fortunately, they were able to wean off her pressors yesterday and blood pressures have been stable above 90 systolic. Patient's baseline is in the 90s systolic. Patient was started on high-dose Solu-Medrol yesterday with Levaquin. She is also on Rocephin 2 g every 24 hours. Rocephin should cover streptococcal pneumonia so Levaquin will be discontinued. Patient's lungs were without any wheezing and I see no clear benefit from Solu-Medrol at this time. I am going to hold the Solu-Medrol and recheck in the morning. Platelets are down to 108,000, likely secondary to sepsis. July 11, 2021 60-year-old female with influenza and streptococcal pneumonia admitted initially with sepsis continues on high flow nasal cannula. Patient has some mild wheezing this morning and will restart Solu-Medrol at a lower dose of 40 mg every 8 hours. Continue with Rocephin. Sensitivities for the streptococcal pneumoniae returned sensitive to Rocephin. Lab work shows improving CRP of 8.9 and a lower white count of 8.5. Platelets have increased to 130,000. The above is reassuring. VTE prophylaxis with Lovenox CODE STATUS: Full code
[2021-07-11] MEDS: methylPREDNISolone Sodium Succinate 40 MG/1 ML SDV IVPUSH SCH ×2 (10:04→17:40)
[2021-07-11] MEDS: Enoxaparin 40 MG/0.4 ML Syringe SUBCUT SCH (20:55)
[2021-07-11] MEDS: Zolpidem 5 MG Tab PO PRN (20:55)
[2021-07-11] MEDS: cefTRIAXone 2 GM in Sodium Chloride 0.9% 100 ML IV SCH (20:56)
[2021-07-12] MEDS: Albuterol/Ipratropium 3.0-0.5 MG/3 ML Neb Soln NEB PRN (04:26)
[2021-07-12] MEDS: Codeine/guaiFENesin 10-100 MG/5 ML Syrup 5 ML Cup PO PRN ×2 (04:46→13:54)
[2021-07-12] MEDS: methylPREDNISolone Sodium Succinate 40 MG/1 ML SDV IVPUSH SCH ×3 (05:52→17:28)
[2021-07-12] MEDS: Oseltamivir 75 MG Cap PO SCH ×2 (08:07→20:05)
--- NOTE | 2021-07-12 12:13 | PCM.PN ---
- General Info Date of Service: 07/12/21 Admission Dx/Problem (Free Text): Admission Diagnosis/Problem Admission Diagnosis/Problem Hypoxia/influenza/pneumonia/pleurisy Subjective Update: The patient is a 60-year-old lady who was admitted to acute hospitalization on D 2020 due to hypoxia, influenza A and pneumonia secondary to strep pneumonia. She continues on high flow nasal cannula. She is feeling better with less cough and shortness of breath. Functional Status: Reports: Pain Controlled - Review of Systems General: Reports: No Symptoms HEENT: Reports: No Symptoms Pulmonary: Reports: No Symptoms Cardiovascular: Reports: No Symptoms Gastrointestinal: Reports: No Symptoms Musculoskeletal: Reports: No Symptoms - Patient Data Vitals - Most Recent: Last Vital Signs Temp 96.6 F L 07/12/21 08:00 Pulse 81 07/08/21 16:00 Resp 20 07/12/21 08:00 BP 108/69 07/12/21 08:00 Pulse Ox 91 L 07/12/21 08:48 Weight - Most Recent: 136 lb I&O - Last 24 Hours: Intake & Output 07/11/21 07/12/21 07/12/21 22:59 06:59 14:59 Intake Total 895 460 Balance 895 460 Lab Results Last 24 Hours: Laboratory Results - last 24 hr 07/12/21 07/12/21 Range/Units 05:20 05:20 WBC 5.94 (3.98-10.04) K/mm3 RBC 4.32 (3.98-5.22) M/mm3 Hgb 13.4 (11.2-15.7) gm/dl Hct 41.7 (34.1-44.9) % MCV 96.5 H (79.4-94.8) fl MCH 31.0 (25.6-32.2) pg MCHC 32.1 L (32.2-35.5) g/dl RDW Std Deviation 46.6 H (36.4-46.3) fL Plt Count 150 L (182-369) K/mm3 MPV 12.4 H (9.4-12.3) fl Neut % (Auto) 76.1 H (34.0-71.1) % Lymph % (Auto) 9.1 L (19.3-51.7) % [place] % (Auto) 12.0 (4.7-12.5) % Eos % (Auto) 0 L (0.7-5.8) Baso % (Auto) 0.3 (0.1-1.2) % Neut # (Auto) 4.52 (1.56-6.13) K/mm3 Lymph # (Auto) 0.54 L (1.18-3.74) K/mm3 [place] # (Auto) 0.71 H (0.24-0.36) K/mm3 Eos # (Auto) 0.00 L (0.04-0.36) K/mm3 Baso # (Auto) 0.02 (0.01-0.08) K/mm3 Manual Slide Review Normal smear Sodium 145 (136-145) mEq/L Potassium 4.1 (3.5-5.1) mEq/L Chloride 108 H (98-107) mEq/L Carbon Dioxide 28 (21-32) mEq/L Anion Gap 13.1 (5-15) BUN 23 H (7-18) mg/dL Creatinine 0.7 (0.55-1.02) mg/dL Est Cr Clr Drug Dosing 72.88 mL/min Estimated GFR (MDRD) > 60 (>60) mL/min BUN/Creatinine Ratio 32.9 H (14-18) Glucose 136 H (70-99) mg/dL Calcium 8.0 L (8.5-10.1) mg/dL Magnesium 2.3 (1.8-2.4) mg/dL Total Bilirubin 0.3 (0.2-1.0) mg/dL AST 24 (15-37) U/L ALT 41 (14-59) U/L Alkaline Phosphatase 56 (46-116) U/L C-Reactive Protein 4.7 H* (<1.0) mg/dL Total Protein 5.1 L (6.4-8.2) g/dl Albumin 2.0 L (3.4-5.0) g/dl Globulin 3.1 gm/dL Albumin/Globulin Ratio 0.7 L (1-2) Chris Results Last 24 Hours: Microbiology 07/10/21 17:41 Blood Culture - Preliminary Blood - Venous - Lab Draw 07/10/21 17:41 Blood Culture - Preliminary Blood - Venous 07/07/21 17:36 Blood Culture - Preliminary Blood - Venous Streptococcus Pneumoniae Med Orders - Current: Current Medications Acetaminophen (Acetaminophen 325 Mg Tab) 650 mg PO Q4H PRN PRN Reason: Pain (Mild 1-3)/fever Hydrocodone Bitart/Acetaminophen (Acetaminophen/Hydrocodone 325-5 Mg Tab) 2 tab PO Q4H PRN PRN Reason: Pain (moderate 4-6) Last Admin: 07/08/21 18:59 Dose: 2 tab Documented by: Albuterol (Albuterol 0.083% 2.5 Mg/3 Ml Neb Soln) 2.5 mg NEB Q2H PRN PRN Reason: Shortness Of Breath/wheezing Last Admin: 07/09/21 23:29 Dose: 2.5 mg Documented by: Albuterol/Ipratropium (Albuterol/Ipratropium 3.0-0.5 Mg/3 Ml Neb Soln) 3 ml NEB Q4HRRT PRN PRN Reason: sob/wheezing Last Admin: 07/12/21 04:26 Dose: 3 ml Documented by: Enoxaparin Sodium (Enoxaparin 40 Mg/0.4 Ml Syringe) 40 mg SUBCUT BEDTIME ALFONSO Last Admin: 07/11/21 20:55 Dose: 40 mg Documented by: Guaifenesin/Codeine Phosphate (Codeine/Guaifenesin 10-100 Mg/5 Ml Syrup 5 Ml Cup) 5 ml PO Q4H PRN PRN Reason: Cough Last Admin: 07/12/21 04:46 Dose: 5 ml Documented by: Ceftriaxone Sodium 2 gm/ (Sodium Chloride) 100 mls @ 200 mls/hr IV BEDTIME ALFONSO Last Admin: 07/11/21 20:56 Dose: 200 mls/hr Documented by: Norepinephrine Bitartrate 4 mg (/ Dextrose/Water) 250 mls @ 7.5 mls/hr IV TITRATE ALFONSO; Protocol Last Titration: 07/09/21 17:26 Dose: 0 mcg/min, 0 mls/hr Documented by: Ibuprofen (Ibuprofen 600 Mg Tab) 600 mg PO Q6H PRN PRN Reason: Pain (moderate 4-6) Last Admin: 07/10/21 00:41 Dose: 600 mg Documented by: Methylprednisolone Sodium Succinate (Methylprednisolone Sodium Succinate 40 Mg/1 Ml Sdv) 40 mg IVPUSH Q8H ALFONSO Last Admin: 07/12/21 09:31 Dose: 40 mg Documented by: Ondansetron HCl (Ondansetron 4 Mg Tab.Dis) 8 mg PO Q6H PRN PRN Reason: Nausea/Vomiting Last Admin: 07/09/21 11:59 Dose: 8 mg Documented by: Oseltamivir Phosphate (Oseltamivir 75 Mg Cap) 75 mg PO BID [facility] [place] Last Admin: 07/12/21 08:07 Dose: 75 mg Documented by: Sodium Chloride (Sodium Chloride 0.9% 10 Ml Syringe) 10 ml FLUSH ASDIRECTED PRN PRN Reason: Keep Vein Open Last Admin: 07/07/21 17:16 Dose: 10 ml Documented by: Zolpidem Tartrate (Zolpidem 5 Mg Tab) 5 mg PO BEDTIME PRN PRN Reason: Sleep Last Admin: 07/11/21 20:55 Dose: 5 mg Documented by: Discontinued Medications Enoxaparin Sodium (Enoxaparin 30 Mg/0.3 Ml Syringe) 30 mg SUBCUT BEDTIME ALFONSO Enoxaparin Sodium (Enoxaparin 30 Mg/0.3 Ml Syringe) 30 mg SUBCUT BEDTIME [facility] [place] Last Admin: 07/08/21 00:05 Dose: 30 mg Documented by: Sodium Chloride (Normal Saline) 1,000 mls @ 999 mls/hr IV ONETIME ONE Stop: 07/07/21 19:30 Last Admin: 07/07/21 17:30 Dose: 999 mls/hr Documented by: Sodium Chloride (Normal Saline) 1,000 mls @ 999 mls/hr IV ONETIME ONE Stop: 07/07/21 19:37 Last Admin: 07/07/21 18:38 Dose: 999 mls/hr Documented by: Ampicillin Sodium/Sulbactam (Sodium 3 gm/ Sodium Chloride) 100 mls @ 200 mls/hr IV ONETIME ONE Stop: 07/07/21 19:38 Ceftriaxone Sodium 2 gm/ (Sodium Chloride) 100 mls @ 200 mls/hr IV ONETIME ONE Stop: 07/07/21 19:40 Last Admin: 07/07/21 19:36 Dose: 200 mls/hr Documented by: Lactated Ringer's (Ringers, Lactated) Confirm Administered Dose 1,000 mls @ as directed .ROUTE .STK-MED ONE Stop: 07/07/21 20:53 Last Admin: 07/08/21 07:32 Dose: Not Given Documented by: Lactated Ringer's (Ringers, Lactated) 1,000 mls @ 125 mls/hr IV ASDIRECTED [facility] [place] Last Admin: 07/09/21 12:43 Dose: 125 mls/hr Documented by: Azithromycin 500 mg/ Sodium (Chloride) 250 mls @ 250 mls/hr IV Q24H [facility] [place] Last Admin: 07/08/21 22:30 Dose: 250 mls/hr Documented by: Sodium Chloride (Normal Saline) 500 mls @ 998.89 mls/hr IV .BOLUS ONE Stop: 07/07/21 21:06 Last Admin: 07/07/21 21:09 Dose: 998.89 mls/hr Documented by: Lactated Ringer's (Ringers, Lactated) 1,000 mls @ 125 mls/hr IV ASDIRECTED [facility] [place] Last Admin: 07/09/21 01:01 Dose: 125 mls/hr Documented by: Sodium Chloride (Normal Saline) 500 mls @ 998.89 mls/hr IV .BOLUS ONE Stop: 07/08/21 01:16 Last Admin: 07/08/21 01:41 Dose: 998.89 mls/hr Documented by: Levofloxacin/Dextrose 750 mg/ (Premix) 150 mls @ 100 mls/hr IV Q24H [facility] [place] Last Admin: 07/09/21 16:01 Dose: 100 mls/hr Documented by: Ketorolac Tromethamine (Ketorolac 30 Mg/Ml Sdv) 30 mg IVPUSH ONETIME ONE Stop: 07/07/21 17:20 Last Admin: 07/07/21 17:57 Dose: 30 mg Documented by: Ketorolac Tromethamine (Ketorolac 30 Mg/Ml Sdv) 30 mg IVPUSH ONETIME ONE Stop: 07/07/21 19:12 Last Admin: 07/07/21 19:34 Dose: 30 mg Documented by: Methylprednisolone Sodium Succinate (Methylprednisolone Sodium Succinate 125 Mg/2 Ml Sdv) 125 mg IVPUSH Q8H [facility] [place] Last Admin: 07/10/21 05:14 Dose: 125 mg Documented by: Ondansetron HCl (Ondansetron 4 Mg/2 Ml Sdv) Confirm Administered Dose 4 mg .ROUTE .STK-MED ONE Stop: 07/07/21 17:13 Last Admin: 07/07/21 17:58 Dose: Not Given Documented by: Ondansetron HCl (Ondansetron 4 Mg/2 Ml Sdv) 4 mg IVPUSH ONETIME ONE Stop: 07/07/21 17:58 Last Admin: 07/07/21 17:58 Dose: 4 mg Documented by: Pantoprazole Sodium (Pantoprazole 40 Mg Vial) 40 mg .XX ONETIME ONE Stop: 07/07/21 20:52 Last Admin: 07/08/21 07:32 Dose: Not Given Documented by: Pantoprazole Sodium (Pantoprazole 40 Mg Vial) 40 mg IVPUSH ONETIME ONE Stop: 07/07/21 23:46 Last Admin: 07/08/21 00:06 Dose: 40 mg Documented by: - Exam Quality Assessment: Supplemental Oxygen General: Alert, Oriented HEENT: Pupils Equal, Mucous Membr. Moist/[place] Neck: Supple Lungs: Clear to Auscultation. No: Normal Respiratory Effort (Mild increased respiratory effort) Cardiovascular: Regular Rate, Regular Rhythm GI/Abdominal Exam: Normal Bowel Sounds, Soft, Non-Tender, No Distention Extremities: Normal Inspection, Normal Range of Motion, Non-Tender, No Pedal Edema, Normal Capillary Refill Skin: Warm, Dry, Intact Psy/Mental Status: Alert, Normal Affect, Normal Mood - Patient Data Lab Results Last 24 hrs: Laboratory Results - last 24 hr 07/12/21 07/12/21 Range/Units 05:20 05:20 WBC 5.94 (3.98-10.04) K/mm3 RBC 4.32 (3.98-5.22) M/mm3 Hgb 13.4 (11.2-15.7) gm/dl Hct 41.7 (34.1-44.9) % MCV 96.5 H (79.4-94.8) fl MCH 31.0 (25.6-32.2) pg MCHC 32.1 L (32.2-35.5) g/dl RDW Std Deviation 46.6 H (36.4-46.3) fL Plt Count 150 L (182-369) K/mm3 MPV 12.4 H (9.4-12.3) fl Neut % (Auto) 76.1 H (34.0-71.1) % Lymph % (Auto) 9.1 L (19.3-51.7) % [place] % (Auto) 12.0 (4.7-12.5) % Eos % (Auto) 0 L (0.7-5.8) Baso % (Auto) 0.3 (0.1-1.2) % Neut # (Auto) 4.52 (1.56-6.13) K/mm3 Lymph # (Auto) 0.54 L (1.18-3.74) K/mm3 [place] # (Auto) 0.71 H (0.24-0.36) K/mm3 Eos # (Auto) 0.00 L (0.04-0.36) K/mm3 Baso # (Auto) 0.02 (0.01-0.08) K/mm3 Manual Slide Review Normal smear Sodium 145 (136-145) mEq/L Potassium 4.1 (3.5-5.1) mEq/L Chloride 108 H (98-107) mEq/L Carbon Dioxide 28 (21-32) mEq/L Anion Gap 13.1 (5-15) BUN 23 H (7-18) mg/dL Creatinine 0.7 (0.55-1.02) mg/dL Est Cr Clr Drug Dosing 72.88 mL/min Estimated GFR (MDRD) > 60 (>60) mL/min BUN/Creatinine Ratio 32.9 H (14-18) Glucose 136 H (70-99) mg/dL Calcium 8.0 L (8.5-10.1) mg/dL Magnesium 2.3 (1.8-2.4) mg/dL Total Bilirubin 0.3 (0.2-1.0) mg/dL AST 24 (15-37) U/L ALT 41 (14-59) U/L Alkaline Phosphatase 56 (46-116) U/L C-Reactive Protein 4.7 H* (<1.0) mg/dL Total Protein 5.1 L (6.4-8.2) g/dl Albumin 2.0 L (3.4-5.0) g/dl Globulin 3.1 gm/dL Albumin/Globulin Ratio 0.7 L (1-2) Result Diagrams: 07/12/21 05:20 07/12/21 05:20 Chris Results Last 24 hrs: Microbiology 07/10/21 17:41 Blood Culture - Preliminary Blood - Venous - Lab Draw 07/10/21 17:41 Blood Culture - Preliminary Blood - Venous 07/07/21 17:36 Blood Culture - Preliminary Blood - Venous Streptococcus Pneumoniae Sepsis Event Note - Evaluation Sepsis Screening Result: No Definite Risk - Focused Exam Vital Signs: Vital Signs Temp Resp BP BP Pulse Ox Pulse Ox 07/12/21 08:48 91 L 07/12/21 08:00 96.6 F L 20 108/69 91 L 07/12/21 06:00 19 97/66 86 L 07/12/21 05:59 10 L 88 L 07/12/21 05:00 21 H 90 L 07/12/21 04:27 88 L 07/12/21 04:01 10 L 89 L 07/12/21 04:00 97.8 F 18 99/64 99/64 90 L 07/12/21 03:59 13 89 L 07/12/21 03:00 23 H 91 L 07/12/21 02:01 14 91 L 07/12/21 02:00 21 H 103/70 92 L 07/12/21 01:59 22 H 90 L 07/12/21 01:00 20 90 L - Problem List & Annotations (1) Pneumococcal pneumonia (streptococcus pneumoniae pneumonia) SNOMED Code(s): 263367483 Code(s): J13 - PNEUMONIA DUE TO STREPTOCOCCUS PNEUMONIAE Status: Acute Current Visit: Yes (2) Acute respiratory failure SNOMED Code(s): 08067894 Code(s): J96.00 - ACUTE RESPIRATORY FAILURE, UNSP W HYPOXIA OR HYPERCAPNIA Status: Acute Priority: High Current Visit: Yes Qualifiers: Respiratory failure complication: hypoxia Qualified Code(s): J96.01 - Acute respiratory failure with hypoxia (3) Thrombocytopenia SNOMED Code(s): 375542310 Code(s): D69.6 - THROMBOCYTOPENIA, UNSPECIFIED Status: Acute Priority: Medium Current Visit: Yes Onset Date: ~07/07/21 Annotation/Comment:: will need eval . (4) Influenza A SNOMED Code(s): 962935703 Code(s): J10.1 - FLU DUE TO OTH IDENT INFLUENZA VIRUS W OTH RESP MANIFEST Status: Acute Priority: Medium Current Visit: No Onset Date: ~07/07/21 Annotation/Comment:: too late for tamiflu (5) Sepsis due to Streptococcus pneumoniae SNOMED Code(s): 140181482 Code(s): A40.3 - SEPSIS DUE TO STREPTOCOCCUS PNEUMONIAE Status: Acute Current Visit: Yes - Problem List Review Problem List Initiated/Reviewed/Updated: Yes - My Orders Last 24 Hours: My Active Orders 07/12/21 Echo Comp wo Cont [US] Routine - Plan Plan:: [age] year old female with fever chills cough body aches and malaise loss of appetite 4 days ago. nauseated but no vomiting . increasing left back pain and pleurisy left flank developing today . infl screen pos. and covid neg but no vaccinations to either. given i.v fluids for low b.p in e.r. p.e. vs as noted patient sats 92 rr 22 b.p 96/64 skin warm and perfusion good. tongue dry. throat mild redness. shows crackles in left and rt posterior lung umanzor. ? friction rub left anterior splinting slightly , cor rrr 112 abd benign. ext. no clubbing /cap refill good. neuro aox4 minor chest xray bilateral lower lobe infiltrates (lobar on left.) lab normal d dimer.43 normal. influenza a + /// cvoid -. assess: influenza with secondary pneumonia start Rocephin and azithromycin for community type pneumonia and consider ct scan for ruling out empyema (pleurisy left sided dullness and ? friction rub heard.) situation discussed with patient and and she is feeling better already so will reassess response overnight. [facility] 07/08/2021 The patient is a 60-year-old lady who had been admitted secondary to influenza A and pneumonia. She is on antibiotics and these will be continued. The patient's oxygen support will be continued to keep her saturations around 92%. She is on a regular diet. The patient also has DVT prophylaxis with the use of Lovenox and is to be continued. She also has a history of pancytopenia and repeat laboratory studies have been ordered. Repeat chest x-ray has been ordered for the morning. We will monitor her platelets closely. There is 109,000 now. The patient has been encouraged to ambulate. The patient also reports that she has history of hypotension and is still on pressors. These will be weaned as needed to help keep her pressures normalized. The patient has been completely asymptomatic with regards to her hypotension. The patient should be appropriate for discharge in 1 to 2 days depending on pressor support. 07/09/2021 The patient is a 60-year-old lady who is doing much better today. She is still requiring pressors to keep her blood pressure up however I have ordered her pr essors to be tapered and the patient should be able to tolerate a systolic blood pressure in the low 90s millimeters of mercury. She does have a history of hypotension. I have also advanced the patient's diet to regular diet as tolerated in the case that the patient might be salt sensitive with regards to her hypotension. The patient will be continued on her antibiotics. Repeat chest x-ray shows increasing density possibly a pleural effusion on left side. Patient's oxygen will also be continued with titration to keep her saturations around 92%. She is also on Lovenox for DVT prophylaxis. Her thrombocytopenia has remained stable. Repeat laboratory studies have been ordered for the michela nela. The patient also has been encouraged to ambulate. July 10, 2021 60-year-old female with sepsis secondary to influenza A and streptococcal pneumoniae. Patient has respiratory failure with on high flow nasal cannula. Patient will be started on Tamiflu for her severe influenza A. Fortunately, they were able to wean off her pressors yesterday and blood pressures have been stable above 90 systolic. Patient's baseline is in the 90s systolic. Patient was started on high-dose Solu-Medrol yesterday with Levaquin. She is also on Rocephin 2 g every 24 hours. Rocephin should cover streptococcal pneumonia so Levaquin will be discontinued. Patient's lungs were without any wheezing and I see no clear benefit from Solu-Medrol at this time. I am going to hold the Solu-Medrol and recheck in the morning. Platelets are down to 108,000, likely secondary to sepsis. July 11, 2021 60-year-old female with influenza and streptococcal pneumonia admitted initially with sepsis continues on high flow nasal cannula. Patient has some mild wh eezing this morning and will restart Solu-Medrol at a lower dose of 40 mg every 8 hours. Continue with Rocephin. Sensitivities for the streptococcal pneumoniae returned sensitive to Rocephin. Lab work shows improving CRP of 8.9 and a lower white count of 8.5. Platelets have increased to 130,000. The above is reassuring. July 12, 2021 60-year-old female admitted with sepsis, streptococcal pneumonia, and influenza A is stable but continues on high flow nasal cannula at 40 L and 60% FiO2. White count is normal at 5.9 and CRP is down to 4.7. She is on day 6 of R ocephin out of 7. Blood cultures did grow out streptococcal pneumonia with repeat cultures negative so far. Echocardiogram was done this morning. We will continue to wean off of O2 as tolerated. She is on methylprednisolone 40 mg every 8 hours. We will reduce that to every 12 hours. Platelets have improved to 136. VTE prophylaxis with Lovenox CODE STATUS: Full code
[2021-07-12] MEDS: Albuterol 0.083% 2.5 MG/3 ML Neb Soln NEB PRN (19:44)
[2021-07-12] MEDS: cefTRIAXone 2 GM in Sodium Chloride 0.9% 100 ML IV SCH (19:59)
[2021-07-12] MEDS: Enoxaparin 40 MG/0.4 ML Syringe SUBCUT SCH (20:04)
[2021-07-12] MEDS: Zolpidem 5 MG Tab PO PRN (20:58)
[2021-07-13] MEDS: methylPREDNISolone Sodium Succinate 40 MG/1 ML SDV IVPUSH SCH ×3 (02:35→20:13)
[2021-07-13] MEDS: Oseltamivir 75 MG Cap PO SCH ×2 (08:18→20:13)
[2021-07-13] MEDS: Codeine/guaiFENesin 10-100 MG/5 ML Syrup 5 ML Cup PO PRN (09:59)
[2021-07-13] MEDS ORDERED: Benzonatate 100 MG Cap PO PRN (10:32)
--- NOTE | 2021-07-13 10:32 | PCM.PN ---
- General Info Date of Service: 07/13/21 Admission Dx/Problem (Free Text): Admission Diagnosis/Problem Admission Diagnosis/Problem Hypoxia/influenza/pneumonia/pleurisy Subjective Update: The patient is a 60-year-old lady who was admitted to acute hospitalization on 2020 due to hypoxia, influenza A and pneumonia secondary to strep pneumonia. She has been weaned down to 6 L nasal cannula. She states she continues to feel better. Functional Status: Reports: Pain Controlled - Review of Systems General: Reports: No Symptoms HEENT: Reports: No Symptoms Pulmonary: Reports: Cough Cardiovascular: Reports: No Symptoms Gastrointestinal: Reports: No Symptoms Musculoskeletal: Reports: No Symptoms - Patient Data Vitals - Most Recent: Last Vital Signs Temp 96.2 F L 07/13/21 08:00 Pulse 77 07/13/21 08:00 Resp 18 07/13/21 08:00 BP 101/68 07/13/21 08:00 Pulse Ox 95 07/13/21 10:29 Weight - Most Recent: 138 lb 4.8 oz I&O - Last 24 Hours: Intake & Output 07/12/21 07/13/21 07/13/21 22:59 06:59 14:59 Intake Total 740 500 Balance 740 500 Chris Results Last 24 Hours: Microbiology 07/10/21 17:41 Blood Culture - Preliminary Blood - Venous - Lab Draw 07/10/21 17:41 Blood Culture - Preliminary Blood - Venous Med Orders - Current: Current Medications Acetaminophen (Acetaminophen 325 Mg Tab) 650 mg PO Q4H PRN PRN Reason: Pain (Mild 1-3)/fever Hydrocodone Bitart/Acetaminophen (Acetaminophen/Hydrocodone 325-5 Mg Tab) 2 tab PO Q4H PRN PRN Reason: Pain (moderate 4-6) Last Admin: 07/08/21 18:59 Dose: 2 tab Documented by: Albuterol (Albuterol 0.083% 2.5 Mg/3 Ml Neb Soln) 2.5 mg NEB Q2H PRN PRN Reason: Shortness Of Breath/wheezing Last Admin: 07/12/21 19:44 Dose: 2.5 mg Documented by: Albuterol/Ipratropium (Albuterol/Ipratropium 3.0-0.5 Mg/3 Ml Neb Soln) 3 ml NEB Q4HRRT PRN PRN Reason: sob/wheezing Last Admin: 07/12/21 04:26 Dose: 3 ml Documented by: Enoxaparin Sodium (Enoxaparin 40 Mg/0.4 Ml Syringe) 40 mg SUBCUT BEDTIME [facility] Last Admin: 07/12/21 20:04 Dose: 40 mg Documented by: Guaifenesin/Codeine Phosphate (Codeine/Guaifenesin 10-100 Mg/5 Ml Syrup 5 Ml Cup) 5 ml PO Q4H PRN PRN Reason: Cough Last Admin: 07/13/21 09:59 Dose: 5 ml Documented by: Ceftriaxone Sodium 2 gm/ (Sodium Chloride) 100 mls @ 200 mls/hr IV BEDTIME [facility] Last Admin: 07/12/21 19:59 Dose: 200 mls/hr Documented by: Norepinephrine Bitartrate 4 mg (/ Dextrose/Water) 250 mls @ 7.5 mls/hr IV TITRATE [facility]; Protocol Last Titration: 07/09/21 17:26 Dose: 0 mcg/min, 0 mls/hr Documented by: Ibuprofen (Ibuprofen 600 Mg Tab) 600 mg PO Q6H PRN PRN Reason: Pain (moderate 4-6) Last Admin: 07/10/21 00:41 Dose: 600 mg Documented by: Methylprednisolone Sodium Succinate (Methylprednisolone Sodium Succinate 40 Mg/1 Ml Sdv) 40 mg IVPUSH Q8H [facility] Last Admin: 07/13/21 09:49 Dose: 40 mg Documented by: Ondansetron HCl (Ondansetron 4 Mg Tab.Dis) 8 mg PO Q6H PRN PRN Reason: Nausea/Vomiting Last Admin: 07/09/21 11:59 Dose: 8 mg Documented by: Oseltamivir Phosphate (Oseltamivir 75 Mg Cap) 75 mg PO BID [facility] Last Admin: 07/13/21 08:18 Dose: 75 mg Documented by: Sodium Chloride (Sodium Chloride 0.9% 10 Ml Syringe) 10 ml FLUSH ASDIRECTED PRN PRN Reason: Keep Vein Open Last Admin: 07/07/21 17:16 Dose: 10 ml Documented by: Zolpidem Tartrate (Zolpidem 5 Mg Tab) 5 mg PO BEDTIME PRN PRN Reason: Sleep Last Admin: 07/12/21 20:58 Dose: 5 mg Documented by: Discontinued Medications Enoxaparin Sodium (Enoxaparin 30 Mg/0.3 Ml Syringe) 30 mg SUBCUT BEDTIME ALFONSO Enoxaparin Sodium (Enoxaparin 30 Mg/0.3 Ml Syringe) 30 mg SUBCUT BEDTIME [facility] Last Admin: 07/08/21 00:05 Dose: 30 mg Documented by: Sodium Chloride (Normal Saline) 1,000 mls @ 999 mls/hr IV ONETIME ONE Stop: 07/07/21 19:30 Last Admin: 07/07/21 17:30 Dose: 999 mls/hr Documented by: Sodium Chloride (Normal Saline) 1,000 mls @ 999 mls/hr IV ONETIME ONE Stop: 07/07/21 19:37 Last Admin: 07/07/21 18:38 Dose: 999 mls/hr Documented by: Ampicillin Sodium/Sulbactam (Sodium 3 gm/ Sodium Chloride) 100 mls @ 200 mls/hr IV ONETIME ONE Stop: 07/07/21 19:38 Ceftriaxone Sodium 2 gm/ (Sodium Chloride) 100 mls @ 200 mls/hr IV ONETIME ONE Stop: 07/07/21 19:40 Last Admin: 07/07/21 19:36 Dose: 200 mls/hr Documented by: Lactated Ringer's (Ringers, Lactated) Confirm Administered Dose 1,000 mls @ as directed .ROUTE .STK-MED ONE Stop: 07/07/21 20:53 Last Admin: 07/08/21 07:32 Dose: Not Given Documented by: Lactated Ringer's (Ringers, Lactated) 1,000 mls @ 125 mls/hr IV ASDIRECTED [facility] Last Admin: 07/09/21 12:43 Dose: 125 mls/hr Documented by: Azithromycin 500 mg/ Sodium (Chloride) 250 mls @ 250 mls/hr IV Q24H [facility] Last Admin: 07/08/21 22:30 Dose: 250 mls/hr Documented by: Sodium Chloride (Normal Saline) 500 mls @ 998.89 mls/hr IV .BOLUS ONE Stop: 07/07/21 21:06 Last Admin: 07/07/21 21:09 Dose: 998.89 mls/hr Documented by: Lactated Ringer's (Ringers, Lactated) 1,000 mls @ 125 mls/hr IV ASDIRECTED [facility] Last Admin: 07/09/21 01:01 Dose: 125 mls/hr Documented by: Sodium Chloride (Normal Saline) 500 mls @ 998.89 mls/hr IV .BOLUS ONE Stop: 07/08/21 01:16 Last Admin: 07/08/21 01:41 Dose: 998.89 mls/hr Documented by: Levofloxacin/Dextrose 750 mg/ (Premix) 150 mls @ 100 mls/hr IV Q24H [facility] Last Admin: 07/09/21 16:01 Dose: 100 mls/hr Documented by: Ketorolac Tromethamine (Ketorolac 30 Mg/Ml Sdv) 30 mg IVPUSH ONETIME ONE Stop: 07/07/21 17:20 Last Admin: 07/07/21 17:57 Dose: 30 mg Documented by: Ketorolac Tromethamine (Ketorolac 30 Mg/Ml Sdv) 30 mg IVPUSH ONETIME ONE Stop: 07/07/21 19:12 Last Admin: 07/07/21 19:34 Dose: 30 mg Documented by: Methylprednisolone Sodium Succinate (Methylprednisolone Sodium Succinate 125 Mg/2 Ml Sdv) 125 mg IVPUSH Q8H [facility] Last Admin: 07/10/21 05:14 Dose: 125 mg Documented by: Ondansetron HCl (Ondansetron 4 Mg/2 Ml Sdv) Confirm Administered Dose 4 mg .ROUTE .STK-MED ONE Stop: 07/07/21 17:13 Last Admin: 07/07/21 17:58 Dose: Not Given Documented by: Ondansetron HCl (Ondansetron 4 Mg/2 Ml Sdv) 4 mg IVPUSH ONETIME ONE Stop: 07/07/21 17:58 Last Admin: 07/07/21 17:58 Dose: 4 mg Documented by: Pantoprazole Sodium (Pantoprazole 40 Mg Vial) 40 mg .XX ONETIME ONE Stop: 07/07/21 20:52 Last Admin: 07/08/21 07:32 Dose: Not Given Documented by: Pantoprazole Sodium (Pantoprazole 40 Mg Vial) 40 mg IVPUSH ONETIME ONE Stop: 07/07/21 23:46 Last Admin: 07/08/21 00:06 Dose: 40 mg Documented by: - Exam Quality Assessment: Supplemental Oxygen General: Alert, Oriented HEENT: Pupils Equal, Mucous Membr. Moist/[place] Neck: Supple Lungs: Normal Respiratory Effort, Decreased Breath Sounds, Wheezing Cardiovascular: Regular Rate, Regular Rhythm GI/Abdominal Exam: Normal Bowel Sounds, Soft, Non-Tender, No Distention Extremities: Normal Inspection, Normal Range of Motion, Non-Tender, No Pedal Edema, Normal Capillary Refill Skin: Warm, Dry, Intact Psy/Mental Status: Alert, Normal Affect, Normal Mood - Patient Data Result Diagrams: 07/12/21 05:20 07/12/21 05:20 Chris Results Last 24 hrs: Microbiology 07/10/21 17:41 Blood Culture - Preliminary Blood - Venous - Lab Draw 07/10/21 17:41 Blood Culture - Preliminary Blood - Venous Sepsis Event Note - Evaluation Sepsis Screening Result: No Definite Risk - Focused Exam Vital Signs: Vital Signs Temp Pulse Resp BP Pulse Ox Pulse Ox 07/13/21 10:29 95 07/13/21 10:04 94 L 07/13/21 09:35 92 L 07/13/21 09:34 92 L 07/13/21 08:00 96.2 F L 77 18 101/68 88 L 07/13/21 06:25 90 L 07/13/21 04:00 98 F 47 L 13 113/64 90 L 07/13/21 00:00 98.1 F 46 L 20 111/64 92 L - Problem List & Annotations (1) Pneumococcal pneumonia (streptococcus pneumoniae pneumonia) SNOMED Code(s): 865531266 Code(s): J13 - PNEUMONIA DUE TO STREPTOCOCCUS PNEUMONIAE Status: Acute Current Visit: Yes (2) Acute respiratory failure SNOMED Code(s): 96800447 Code(s): J96.00 - ACUTE RESPIRATORY FAILURE, UNSP W HYPOXIA OR HYPERCAPNIA Status: Acute Priority: High Current Visit: Yes Qualifiers: Respiratory failure complication: hypoxia Qualified Code(s): J96.01 - Acute respiratory failure with hypoxia (3) Thrombocytopenia SNOMED Code(s): 131692785 Code(s): D69.6 - THROMBOCYTOPENIA, UNSPECIFIED Status: Acute Priority: Medium Current Visit: Yes Onset Date: ~07/07/21 Annotation/Comment:: will need eval . (4) Influenza A SNOMED Code(s): 871232189 Code(s): J10.1 - FLU DUE TO OTH IDENT INFLUENZA VIRUS W OTH RESP MANIFEST Status: Acute Priority: Medium Current Visit: No Onset Date: ~07/07/21 Annotation/Comment:: too late for tamiflu (5) Sepsis due to Streptococcus pneumoniae SNOMED Code(s): 075917285 Code(s): A40.3 - SEPSIS DUE TO STREPTOCOCCUS PNEUMONIAE Status: Acute Current Visit: Yes - Problem List Review Problem List Initiated/Reviewed/Updated: Yes - My Orders Last 24 Hours: My Active Orders 07/13/21 10:21 Admission Status [Patient Status] [ADT] Routine - Plan Plan:: [age] year old female with fever chills cough body aches and malaise loss of appetite 4 days ago. nauseated but no vomiting . increasing left back pain and pleurisy left flank developing today . infl screen pos. and covid neg but no vaccinations to either. given i.v fluids for low b.p in e.r. p.e. vs as noted patient sats 92 rr 22 b.p 96/64 skin warm and perfusion good. tongue dry. throat mild redness. shows crackles in left and rt posterior lung umanzor. ? friction rub left anterior splinting slightly , cor rrr 112 abd benign. ext. no clubbing /cap refill good. neuro aox4 minor chest xray bilateral lower lobe infiltrates (lobar on left.) lab normal d dimer.43 normal. influenza a + /// cvoid -. assess: influenza with secondary pneumonia start Rocephin and azithromycin for community type pneumonia and consider ct scan for ruling out empyema (pleurisy left sided dullness and ? friction rub heard.) situation discussed with patient and and she is feeling better already so will reassess response overnight. [facility] 07/08/2021 The patient is a 60-year-old lady who had been admitted secondary to influenza A and pneumonia. She is on antibiotics and these will be continued. The patient's oxygen support will be continued to keep her saturations around 92%. She is on a regular diet. The patient also has DVT prophylaxis with the use of Lovenox and is to be continued. She also has a history of pancytopenia and repeat laboratory studies have been ordered. Repeat chest x-ray has been ordered for the morning. We will monitor her platelets closely. There is 109,000 now. The patient has been encouraged to ambulate. The patient also reports that she has history of hypotension and is still on pressors. These will be weaned as needed to help keep her pressures normalized. The patient has been completely asymptomatic with regards to her hypotension. The patient should be appropriate for discharge in 1 to 2 days depending on pressor support. 07/09/2021 The patient is a 60-year-old lady who is doing much better today. She is still requiring pressors to keep her blood pressure up however I have ordered her pressors to be tapered and the patient should be able to tolerate a systolic blood pressure in the low 90s millimeters of mercury. She does have a history of hypotension. I have also advanced the patient's diet to regular diet as tolerated in the case that the patient might be salt sensitive with regards to her hypotension. The patient will be continued on her antibiotics. Repeat chest x-ray shows increasing density possibly a pleural effusion on left side. Patient's oxygen will also be continued with titration to keep her saturations around 92%. She is also on Lovenox for DVT prophylaxis. Her thrombocytopenia has remained stable. Repeat laboratory studies have been ordered for the morning. The patient also has been encouraged to ambulate. July 10, 2021 60-year-old female with sepsis secondary to influenza A and streptococcal pneumoniae. Patient has respiratory failure with on high flow nasal cannula. Patient will be started on Tamiflu for her severe influenza A. Fortunately, they were able to wean off her pressors yesterday and blood pressures have been stable above 90 systolic. Patient's baseline is in the 90s systolic. Patient was started on high-dose Solu-Medrol yesterday with Levaquin. She is also on Rocephin 2 g every 24 hours. Rocephin should cover streptococcal pneumonia so Levaquin will be discontinued. Patient's lungs were without any wheezing and I see no clear benefit from Solu-Medrol at this time. I am going to hold the Solu-Medrol and recheck in the morning. Platelets are down to 108,000, likely secondary to sepsis. July 11, 2021 60-year-old female with influenza and streptococcal pneumonia admitted initially with sepsis continues on high flow nasal cannula. Patient has some mild wheezing this morning and will restart Solu-Medrol at a lower dose of 40 mg every 8 hours. Continue with Rocephin. Sensitivities for the streptococcal pneumoniae returned sensitive to Rocephin. Lab work shows improving CRP of 8.9 and a lower white count of 8.5. Platelets have increased to 130,000. The above is reassuring. July 12, 2021 60-year-old female admitted with sepsis, streptococcal pneumonia, and influenza A is stable but continues on high flow nasal cannula at 40 L and 60% FiO2. White count is normal at 5.9 and CRP is down to 4.7. She is on day 6 of Rocephin out of 7. Blood cultures did grow out streptococcal pneumonia with repeat cultures negative so far. Echocardiogram was done this morning. We will continue to wean off of O2 as tolerated. She is on methylprednisolone 40 mg every 8 hours. We will reduce that to every 12 hours. Platelets have improved to 136. July 13, 2021 60-year-old female admitted with sepsis, strep coccal pneumonia and bacteremia, and influenza A continues to improve. She is currently on 6 L nasal cannula with oxygen saturations above 90%. No labs today. Preliminary repeat blood cultures are negative so far. She has completed 7 days of Rocephin. Continue to wean off methylprednisolone. VTE prophylaxis with Lovenox CODE STATUS: Full code
[2021-07-13] MEDS: cefTRIAXone 2 GM in Sodium Chloride 0.9% 100 ML IV SCH (20:14)
[2021-07-13] MEDS: Enoxaparin 40 MG/0.4 ML Syringe SUBCUT SCH (20:14)
[2021-07-13] MEDS: Albuterol/Ipratropium 3.0-0.5 MG/3 ML Neb Soln NEB PRN (20:17)
[2021-07-13] MEDS: Zolpidem 5 MG Tab PO PRN (21:18)
[2021-07-14] MEDS: Albuterol/Ipratropium 3.0-0.5 MG/3 ML Neb Soln NEB PRN (08:00)
[2021-07-14] MEDS ORDERED: methylPREDNISolone Sodium Succinate 40 MG/1 ML SDV ONE (09:12)
[2021-07-14] MEDS: Oseltamivir 75 MG Cap PO SCH ×2 (09:14→21:00)
[2021-07-14] MEDS: methylPREDNISolone Sodium Succinate 40 MG/1 ML SDV IVPUSH SCH ×2 (09:14→21:01)
[2021-07-14] MEDS: Cyanocobalamin (Vitamin B12) 1,000 MCG Tab PO SCH (11:46)
[2021-07-14] MEDS: Thiamine 200 MG/2 ML MDV IVPUSH SCH (11:46)
--- NOTE | 2021-07-14 14:03 | PCM.PN ---
- General Info Date of Service: 07/14/21 Admission Dx/Problem (Free Text): Admission Diagnosis/Problem Admission Diagnosis/Problem Hypoxia/influenza/pneumonia/pleurisy Subjective Update: The patient is a 60-year-old lady who was admitted to acute hospitalization on 2020 due to hypoxia, influenza A and pneumonia secondary to strep pneumonia. She has been weaned down to 2 L nasal cannula at rest and 4 L with activity. She states she continues to feel better, but still feels weak. Functional Status: Reports: Pain Controlled - Review of Systems General: Reports: Weakness, Fatigue HEENT: Reports: No Symptoms Pulmonary: Reports: Shortness of Breath, Cough Cardiovascular: Reports: No Symptoms Gastrointestinal: Reports: No Symptoms Musculoskeletal: Reports: No Symptoms Neurological: Reports: No Symptoms Psychiatric: Reports: No Symptoms - Patient Data Vitals - Most Recent: Last Vital Signs Temp 97.5 F 07/14/21 08:00 Pulse 61 07/13/21 20:00 Resp 16 07/14/21 08:00 BP 100/57 L 07/14/21 08:00 Pulse Ox 85 L 07/14/21 11:33 Weight - Most Recent: 136 lb I&O - Last 24 Hours: Intake & Output 07/13/21 07/14/21 07/14/21 22:59 06:59 14:59 Intake Total 175 900 175 Balance 175 900 175 Lab Results Last 24 Hours: Laboratory Results - last 24 hr 07/14/21 07/14/21 07/14/21 Range/Units 09:24 09:24 09:24 WBC 7.31 (3.98-10.04) K/mm3 RBC 4.64 (3.98-5.22) M/mm3 Hgb 14.4 (11.2-15.7) gm/dl Hct 43.4 (34.1-44.9) % MCV 93.5 D (79.4-94.8) fl MCH 31.0 (25.6-32.2) pg MCHC 33.2 (32.2-35.5) g/dl RDW Std Deviation 42.8 (36.4-46.3) fL Plt Count 225 D (182-369) K/mm3 MPV 11.6 (9.4-12.3) fl Neut % (Auto) 73.1 H (34.0-71.1) % Lymph % (Auto) 14.4 L (19.3-51.7) % [place] % (Auto) 6.2 (4.7-12.5) % Eos % (Auto) 0 L (0.7-5.8) Baso % (Auto) 0.3 (0.1-1.2) % Neut # (Auto) 5.35 (1.56-6.13) K/mm3 Lymph # (Auto) 1.05 L (1.18-3.74) K/mm3 [place] # (Auto) 0.45 H (0.24-0.36) K/mm3 Eos # (Auto) 0.00 L (0.04-0.36) K/mm3 Baso # (Auto) 0.02 (0.01-0.08) K/mm3 Manual Slide Review Normal smear Sodium 145 (136-145) mEq/L Potassium 3.8 (3.5-5.1) mEq/L Chloride 107 (98-107) mEq/L Carbon Dioxide 30 (21-32) mEq/L Anion Gap 11.8 (5-15) BUN 17 (7-18) mg/dL Creatinine 0.8 (0.55-1.02) mg/dL Est Cr Clr Drug Dosing 61.09 mL/min Estimated GFR (MDRD) > 60 (>60) mL/min BUN/Creatinine Ratio 21.3 H (14-18) Glucose 115 H (70-99) mg/dL Calcium 8.0 L (8.5-10.1) mg/dL Magnesium 2.1 (1.8-2.4) mg/dL Total Bilirubin 0.3 (0.2-1.0) mg/dL AST 21 (15-37) U/L ALT 46 (14-59) U/L Alkaline Phosphatase 51 (46-116) U/L C-Reactive Protein 1.0 (<1.0) mg/dL Total Protein 5.0 L (6.4-8.2) g/dl Albumin 2.1 L (3.4-5.0) g/dl Globulin 2.9 gm/dL Albumin/Globulin Ratio 0.7 L (1-2) Vitamin D 25-Hydroxy 19.5 L (30.0-100.0) ng/ml Chris Results Last 24 Hours: Microbiology 07/07/21 17:36 Blood Culture - Final Blood - Venous Streptococcus Pneumoniae 07/07/21 17:29 Blood Culture - Final Blood - Venous - Lab Draw Med Orders - Current: Current Medications Acetaminophen (Acetaminophen 325 Mg Tab) 650 mg PO Q4H PRN PRN Reason: Pain (Mild 1-3)/fever Hydrocodone Bitart/Acetaminophen (Acetaminophen/Hydrocodone 325-5 Mg Tab) 2 tab PO Q4H PRN PRN Reason: Pain (moderate 4-6) Last Admin: 07/08/21 18:59 Dose: 2 tab Documented by: Albuterol (Albuterol 0.083% 2.5 Mg/3 Ml Neb Soln) 2.5 mg NEB Q2H PRN PRN Reason: Shortness Of Breath/wheezing Last Admin: 07/12/21 19:44 Dose: 2.5 mg Documented by: Albuterol/Ipratropium (Albuterol/Ipratropium 3.0-0.5 Mg/3 Ml Neb Soln) 3 ml NEB Q4HRRT PRN PRN Reason: sob/wheezing Last Admin: 07/14/21 08:00 Dose: 3 ml Documented by: Benzonatate (Benzonatate 100 Mg Cap) 200 mg PO Q8H PRN PRN Reason: Cough Cefdinir (Cefdinir 300 Mg Cap) 300 mg PO BID [facility] Cyanocobalamin (Cyanocobalamin (Vitamin B12) 1,000 Mcg Tab) 1,000 mcg PO DAILY [facility] Last Admin: 07/14/21 11:46 Dose: 1,000 mcg Documented by: Enoxaparin Sodium (Enoxaparin 40 Mg/0.4 Ml Syringe) 40 mg SUBCUT BEDTIME [facility] Last Admin: 07/13/21 20:14 Dose: 40 mg Documented by: Guaifenesin/Codeine Phosphate (Codeine/Guaifenesin 10-100 Mg/5 Ml Syrup 5 Ml Cup) 5 ml PO Q4H PRN PRN Reason: Cough Last Admin: 07/13/21 09:59 Dose: 5 ml Documented by: Norepinephrine Bitartrate 4 mg (/ Dextrose/Water) 250 mls @ 7.5 mls/hr IV TITRATE ALFONSO; Protocol Last Titration: 07/09/21 17:26 Dose: 0 mcg/min, 0 mls/hr Documented by: Ibuprofen (Ibuprofen 600 Mg Tab) 600 mg PO Q6H PRN PRN Reason: Pain (moderate 4-6) Last Admin: 07/10/21 00:41 Dose: 600 mg Documented by: Methylprednisolone Sodium Succinate (Methylprednisolone Sodium Succinate 40 Mg/1 Ml Sdv) 40 mg IVPUSH Q12H [facility] Last Admin: 07/14/21 09:14 Dose: 40 mg Documented by: Ondansetron HCl (Ondansetron 4 Mg Tab.Dis) 8 mg PO Q6H PRN PRN Reason: Nausea/Vomiting Last Admin: 07/09/21 11:59 Dose: 8 mg Documented by: Oseltamivir Phosphate (Oseltamivir 75 Mg Cap) 75 mg PO BID [facility] Last Admin: 07/14/21 09:14 Dose: 75 mg Documented by: Sodium Chloride (Sodium Chloride 0.9% 10 Ml Syringe) 10 ml FLUSH ASDIRECTED PRN PRN Reason: Keep Vein Open Last Admin: 07/07/21 17:16 Dose: 10 ml Documented by: Thiamine HCl (Thiamine 200 Mg/2 Ml Mdv) 100 mg IVPUSH DAILY [facility] Last Admin: 07/14/21 11:46 Dose: 100 mg Documented by: Zolpidem Tartrate (Zolpidem 5 Mg Tab) 5 mg PO BEDTIME PRN PRN Reason: Sleep Last Admin: 07/13/21 21:18 Dose: 5 mg Documented by: Discontinued Medications Enoxaparin Sodium (Enoxaparin 30 Mg/0.3 Ml Syringe) 30 mg SUBCUT BEDTIME [facility] Last Admin: 07/14/21 07:43 Dose: Not Given Documented by: Enoxaparin Sodium (Enoxaparin 30 Mg/0.3 Ml Syringe) 30 mg SUBCUT BEDTIME [facility] Last Admin: 07/08/21 00:05 Dose: 30 mg Documented by: Sodium Chloride (Normal Saline) 1,000 mls @ 999 mls/hr IV ONETIME ONE Stop: 07/07/21 19:30 Last Admin: 07/07/21 17:30 Dose: 999 mls/hr Documented by: Sodium Chloride (Normal Saline) 1,000 mls @ 999 mls/hr IV ONETIME ONE Stop: 07/07/21 19:37 Last Admin: 07/07/21 18:38 Dose: 999 mls/hr Documented by: Ampicillin Sodium/Sulbactam (Sodium 3 gm/ Sodium Chloride) 100 mls @ 200 mls/hr IV ONETIME ONE Stop: 07/07/21 19:38 Last Admin: 07/14/21 07:43 Dose: Not Given Documented by: Ceftriaxone Sodium 2 gm/ (Sodium Chloride) 100 mls @ 200 mls/hr IV ONETIME ONE Stop: 07/07/21 19:40 Last Admin: 07/07/21 19:36 Dose: 200 mls/hr Documented by: Lactated Ringer's (Ringers, Lactated) Confirm Administered Dose 1,000 mls @ as directed .ROUTE .STK-MED ONE Stop: 07/07/21 20:53 Last Admin: 07/08/21 07:32 Dose: Not Given Documented by: Lactated Ringer's (Ringers, Lactated) 1,000 mls @ 125 mls/hr IV ASDIRECTED [facility] Last Admin: 07/09/21 12:43 Dose: 125 mls/hr Documented by: Ceftriaxone Sodium 2 gm/ (Sodium Chloride) 100 mls @ 200 mls/hr IV BEDTIME [facility] Last Admin: 07/13/21 20:14 Dose: 200 mls/hr Documented by: Azithromycin 500 mg/ Sodium (Chloride) 250 mls @ 250 mls/hr IV Q24H [facility] Last Admin: 07/08/21 22:30 Dose: 250 mls/hr Documented by: Sodium Chloride (Normal Saline) 500 mls @ 998.89 mls/hr IV .BOLUS ONE Stop: 07/07/21 21:06 Last Admin: 07/07/21 21:09 Dose: 998.89 mls/hr Documented by: Lactated Ringer's (Ringers, Lactated) 1,000 mls @ 125 mls/hr IV ASDIRECTED [facility] Last Admin: 07/09/21 01:01 Dose: 125 mls/hr Documented by: Sodium Chloride (Normal Saline) 500 mls @ 998.89 mls/hr IV .BOLUS ONE Stop: 07/08/21 01:16 Last Admin: 07/08/21 01:41 Dose: 998.89 mls/hr Documented by: Levofloxacin/Dextrose 750 mg/ (Premix) 150 mls @ 100 mls/hr IV Q24H [facility] Last Admin: 07/09/21 16:01 Dose: 100 mls/hr Documented by: Ketorolac Tromethamine (Ketorolac 30 Mg/Ml Sdv) 30 mg IVPUSH ONETIME ONE Stop: 07/07/21 17:20 Last Admin: 07/07/21 17:57 Dose: 30 mg Documented by: Ketorolac Tromethamine (Ketorolac 30 Mg/Ml Sdv) 30 mg IVPUSH ONETIME ONE Stop: 07/07/21 19:12 Last Admin: 07/07/21 19:34 Dose: 30 mg Documented by: Methylprednisolone Sodium Succinate (Methylprednisolone Sodium Succinate 125 Mg/2 Ml Sdv) 125 mg IVPUSH Q8H [facility] Last Admin: 07/10/21 05:14 Dose: 125 mg Documented by: Methylprednisolone Sodium Succinate (Methylprednisolone Sodium Succinate 40 Mg/1 Ml Sdv) 40 mg IVPUSH Q8H [facility] Last Admin: 07/13/21 09:49 Dose: 40 mg Documented by: Methylprednisolone Sodium Succinate (Methylprednisolone Sodium Succinate 40 Mg/1 Ml Sdv) Confirm Administered Dose 40 mg .ROUTE .STK-MED ONE Stop: 07/14/21 09:13 Last Admin: 07/14/21 09:34 Dose: Not Given Documented by: Ondansetron HCl (Ondansetron 4 Mg/2 Ml Sdv) Confirm Administered Dose 4 mg .ROUTE .STK-MED ONE Stop: 07/07/21 17:13 Last Admin: 07/07/21 17:58 Dose: Not Given Documented by: Ondansetron HCl (Ondansetron 4 Mg/2 Ml Sdv) 4 mg IVPUSH ONETIME ONE Stop: 07/07/21 17:58 Last Admin: 07/07/21 17:58 Dose: 4 mg Documented by: Pantoprazole Sodium (Pantoprazole 40 Mg Vial) 40 mg .XX ONETIME ONE Stop: 07/07/21 20:52 Last Admin: 07/08/21 07:32 Dose: Not Given Documented by: Pantoprazole Sodium (Pantoprazole 40 Mg Vial) 40 mg IVPUSH ONETIME ONE Stop: 07/07/21 23:46 Last Admin: 07/08/21 00:06 Dose: 40 mg Documented by: - Exam Quality Assessment: Supplemental Oxygen General: Alert, Oriented HEENT: Pupils Equal, Mucous Membr. Moist/[place] Neck: Supple Lungs: Normal Respiratory Effort, Decreased Breath Sounds Cardiovascular: Regular Rate, Regular Rhythm GI/Abdominal Exam: Normal Bowel Sounds, Soft, Non-Tender, No Organomegaly, No Distention, No Abnormal Bruit, No Mass Extremities: Normal Inspection, Normal Range of Motion, Non-Tender, No Pedal Edema, Normal Capillary Refill Skin: Warm, Dry, Intact Psy/Mental Status: Alert, Normal Affect, Normal Mood - Patient Data Lab Results Last 24 hrs: Laboratory Results - last 24 hr 07/14/21 07/14/21 07/14/21 Range/Units 09:24 09:24 09:24 WBC 7.31 (3.98-10.04) K/mm3 RBC 4.64 (3.98-5.22) M/mm3 Hgb 14.4 (11.2-15.7) gm/dl Hct 43.4 (34.1-44.9) % MCV 93.5 D (79.4-94.8) fl MCH 31.0 (25.6-32.2) pg MCHC 33.2 (32.2-35.5) g/dl RDW Std Deviation 42.8 (36.4-46.3) fL Plt Count 225 D (182-369) K/mm3 MPV 11.6 (9.4-12.3) fl Neut % (Auto) 73.1 H (34.0-71.1) % Lymph % (Auto) 14.4 L (19.3-51.7) % [place] % (Auto) 6.2 (4.7-12.5) % Eos % (Auto) 0 L (0.7-5.8) Baso % (Auto) 0.3 (0.1-1.2) % Neut # (Auto) 5.35 (1.56-6.13) K/mm3 Lymph # (Auto) 1.05 L (1.18-3.74) K/mm3 [place] # (Auto) 0.45 H (0.24-0.36) K/mm3 Eos # (Auto) 0.00 L (0.04-0.36) K/mm3 Baso # (Auto) 0.02 (0.01-0.08) K/mm3 Manual Slide Review Normal smear Sodium 145 (136-145) mEq/L Potassium 3.8 (3.5-5.1) mEq/L Chloride 107 (98-107) mEq/L Carbon Dioxide 30 (21-32) mEq/L Anion Gap 11.8 (5-15) BUN 17 (7-18) mg/dL Creatinine 0.8 (0.55-1.02) mg/dL Est Cr Clr Drug Dosing 61.09 mL/min Estimated GFR (MDRD) > 60 (>60) mL/min BUN/Creatinine Ratio 21.3 H (14-18) Glucose 115 H (70-99) mg/dL Calcium 8.0 L (8.5-10.1) mg/dL Magnesium 2.1 (1.8-2.4) mg/dL Total Bilirubin 0.3 (0.2-1.0) mg/dL AST 21 (15-37) U/L ALT 46 (14-59) U/L Alkaline Phosphatase 51 (46-116) U/L C-Reactive Protein 1.0 (<1.0) mg/dL Total Protein 5.0 L (6.4-8.2) g/dl Albumin 2.1 L (3.4-5.0) g/dl Globulin 2.9 gm/dL Albumin/Globulin Ratio 0.7 L (1-2) Vitamin D 25-Hydroxy 19.5 L (30.0-100.0) ng/ml Result Diagrams: 07/14/21 09:24 07/14/21 09:24 Chris Results Last 24 hrs: Microbiology 07/07/21 17:36 Blood Culture - Final Blood - Venous Streptococcus Pneumoniae 07/07/21 17:29 Blood Culture - Final Blood - Venous - Lab Draw Sepsis Event Note - Evaluation Sepsis Screening Result: No Definite Risk - Focused Exam Vital Signs: Vital Signs Temp Resp BP Pulse Ox Pulse Ox Pulse Ox 07/14/21 11:33 85 L 07/14/21 11:20 92 L 07/14/21 09:32 92 L 07/14/21 08:29 92 L 07/14/21 08:00 97.5 F 16 100/57 L 93 L 92 L 07/14/21 04:00 97.3 F 20 116/96 H 91 L - Problem List & Annotations (1) Pneumococcal pneumonia (streptococcus pneumoniae pneumonia) SNOMED Code(s): 245672571 Code(s): J13 - PNEUMONIA DUE TO STREPTOCOCCUS PNEUMONIAE Status: Acute Current Visit: Yes (2) Acute respiratory failure SNOMED Code(s): 33757476 Code(s): J96.00 - ACUTE RESPIRATORY FAILURE, UNSP W HYPOXIA OR HYPERCAPNIA Status: Acute Priority: High Current Visit: Yes Qualifiers: Respiratory failure complication: hypoxia Qualified Code(s): J96.01 - Acute respiratory failure with hypoxia (3) Thrombocytopenia SNOMED Code(s): 415406825 Code(s): D69.6 - THROMBOCYTOPENIA, UNSPECIFIED Status: Acute Priority: Medium Current Visit: Yes Onset Date: ~07/07/21 Annotation/Comment:: will need eval . (4) Influenza A SNOMED Code(s): 450393329 Code(s): J10.1 - FLU DUE TO OTH IDENT INFLUENZA VIRUS W OTH RESP MANIFEST Status: Acute Priority: Medium Current Visit: No Onset Date: ~07/07/21 Annotation/Comment:: too late for tamiflu (5) Sepsis due to Streptococcus pneumoniae SNOMED Code(s): 727242590 Code(s): A40.3 - SEPSIS DUE TO STREPTOCOCCUS PNEUMONIAE Status: Acute C urrent Visit: Yes - Problem List Review Problem List Initiated/Reviewed/Updated: Yes - My Orders Last 24 Hours: My Active Orders 07/13/21 21:00 methylPREDNISolone Sod Succ [Solu-MEDROL] 40 mg IVPUSH Q12H 07/14/21 11:00 Cyanocobalamin (Vitamin B12) [Vitamin B12] 1,000 mcg PO DAILY Thiamine [Vitamin B-1] 100 mg IVPUSH DAILY 07/14/21 21:00 Cefdinir [Omnicef] 300 mg PO BID - Plan Plan:: [age] year old female with fever chills cough body aches and malaise loss of appetite 4 days ago. nauseated but no vomiting . increasing left back pain and pleurisy left flank developing today . infl screen pos. and covid neg but no vaccinations to either. given i.v fluids for low b.p in e.r. p.e. vs as noted patient sats 92 rr 22 b.p 96/64 skin warm and perfusion good. tongue dry. throat mild redness. shows crackles in left and rt posterior lung umanzor. ? friction rub left anterior splinting slightly , cor rrr 112 abd benign. ext. no clubbing /cap refill good. neuro aox4 minor chest xray bilateral lower lobe infiltrates (lobar on left.) lab normal d dimer.43 normal. influenza a + /// cvoid -. assess: influenza with secondary pneumonia start Rocephin and azithromycin for community type pneumonia and consider ct scan for ruling out empyema (pleurisy left sided dullness and ? friction rub heard.) situation discussed with patient and and she is feeling better already so will reassess response overnight. [facility] 07/08/2021 The patient is a 60-year-old lady who had been admitted secondary to influenza A and pneumonia. She is on antibiotics and these will be continued. The patient's oxygen support will be continued to keep her saturations around 92%. She is on a regular diet. The patient also has DVT prophylaxis with the use of Lovenox and is to be continued. She also has a history of pancytopenia and repeat laboratory studies have been ordered. Repeat chest x-ray has been ordered for the morning. We will monitor her platelets closely. There is 109,000 now. The patient has been encouraged to ambulate. The patient also reports that she has history of hypotension and is still on pressors. These will be weaned as needed to help keep her pressures normalized. The patient has been completely asymptomatic with regards to her hypotension. The patient should be appropriate for discharge in 1 to 2 days depending on pressor support. 07/09/2021 The patient is a 60-year-old lady who is doing much better today. She is still requiring pressors to keep her blood pressure up however I have ordered her pressors to be tapered and the patient should be able to tolerate a systolic blood pressure in the low 90s millimeters of mercury. She does have a history of hypotension. I have also advanced the patient's diet to regular diet as tolerated in the case that the patient might be salt sensitive with regards to her hypotension. The patient will be continued on her antibiotics. Repeat chest x-ray shows increasing density possibly a pleural effusion on left side. Patient's oxygen will also be continued with titration to keep her saturations around 92%. She is also on Lovenox for DVT prophylaxis. Her thrombocytopenia has remained stable. Repeat laboratory studies have been ordered for the morning. The patient also has been encouraged to ambulate. July 10, 2021 60-year-old female with sepsis secondary to influenza A and streptococcal pneumoniae. Patient has respiratory failure with on high flow nasal cannula. Patient will be started on Tamiflu for her severe influenza A. Fortunately, they were able to wean off her pressors yesterday and blood pressures have been stable above 90 systolic. Patient's baseline is in the 90s systolic. Patient was started on high-dose Solu-Medrol yesterday with Levaquin. She is also on Rocephin 2 g every 24 hours. Rocephin should cover streptococcal pneumonia so Levaquin will be discontinued. Patient's lungs were without any wheezing and I see no clear benefit from Solu-Medrol at this time. I am going to hold the Solu-Medrol and recheck in the morning. Platelets are down to 108,000, likely secondary to sepsis. July 11, 2021 60-year-old female with influenza and streptococcal pneumonia admitted initially with sepsis continues on high flow nasal cannula. Patient has some mild wheezing this morning and will restart Solu-Medrol at a lower dose of 40 mg every 8 hours. Continue with Rocephin. Sensitivities for the streptococcal pneumoniae returned sensitive to Rocephin. Lab work shows improving CRP of 8.9 and a lower white count of 8.5. Platelets have increased to 130,000. The above is reassuring. July 12, 2021 60-year-old female admitted with sepsis, streptococcal pneumonia, and influenza A is stable but continues on high flow nasal cannula at 40 L and 60% FiO2. White count is normal at 5.9 and CRP is down to 4.7. She is on day 6 of Rocephin out of 7. Blood cultures did grow out streptococcal pneumonia with repeat cultures negative so far. Echocardiogram was done this morning. We will continue to wean off of O2 as tolerated. She is on methylprednisolone 40 mg every 8 hours. We will reduce that to every 12 hours. Platelets have improved to 136. July 13, 2021 60-year-old female admitted with sepsis, strep coccal pneumonia and bacteremia, and influenza A continues to improve. She is currently on 6 L nasal cannula with oxygen saturations above 90%. No labs today. Preliminary repeat blood cultures are negative so far. She has completed 7 days of Rocephin. Continue to wean off methylprednisolone. July 14, 2021 60-year-old female mated with sepsis secondary to streptococcal pneumonia and influenza A continues to improve. She is down to 2 L nasal cannula at rest and 4 L nasal cannula with activity. Patient is still a bit too weak to leave today. She will be switched over to oral antibiotics and another day of IV steroids. Plan will be to discharge her home tomorrow on O2. Lab work showed normal CBC and CMP except for a low albumin of 2.1. CRP is down to 1. 25 hydroxy vitamin D is low at 19.5. I will recommend 5000 international units daily and recheck in a couple of months. VTE prophylaxis with Lovenox CODE STATUS: Full code
[2021-07-14] MEDS: Cholecalciferol (Vitamin D3) 5,000 UNIT Tab PO SCH (15:31)
[2021-07-14] MEDS: Cefdinir 300 MG Cap PO SCH (21:00)
[2021-07-14] MEDS: Zolpidem 5 MG Tab PO PRN (21:01)
[2021-07-14] MEDS: Enoxaparin 40 MG/0.4 ML Syringe SUBCUT SCH (21:01)
[2021-07-15] MEDS: Thiamine 200 MG/2 ML MDV IVPUSH SCH (09:10)
[2021-07-15] MEDS: methylPREDNISolone Sodium Succinate 40 MG/1 ML SDV IVPUSH SCH (09:11)
[2021-07-15] MEDS: Cyanocobalamin (Vitamin B12) 1,000 MCG Tab PO SCH (09:11)
[2021-07-15] MEDS: Oseltamivir 75 MG Cap PO SCH (09:11)
[2021-07-15] MEDS: Cholecalciferol (Vitamin D3) 5,000 UNIT Tab PO SCH (09:12)
[2021-07-15] MEDS: Cefdinir 300 MG Cap PO SCH (09:12)
[2021-07-15 10:57] VITALS: BP 98/67; PULSE 52
--- NOTE | 2021-07-15 11:05 | PCM.DCSUM1 ---
Discharge Summary - Hospital Course HPI Initial Comments: Initial Comments - Free Text/Narative: 60 year old female with fever chills cough body aches and malaise loss of appetite 3 days ago. nauseated but no vomiting . increasing left back pain and pleurisy left flank developing today . infl screen pos. and covid neg but no vaccinations to either. given i.v fluids for low b.p in e.r. p.e. vs as noted patient sats 92 rr 22 b.p 96/64 skin warm and perfusion good. tongue dry. throat mild redness. shows crackles in left and rt posterior lung umanzor. ? friction rub left anterior splinting slightly , cor rrr 112 abd benign. ext. no clubbing /cap refill good. neuro aox4 minor chest xray bilateral lower lobe infiltrates (lobar on left.) lab normal d dimer.43 normal. influenza a + /// cvoid -. assess: influenza with secondary pneumonia start Rocephin and azithromycin for community type pneumonia and consider ct scan for ruling out empyema (pleurisy left sided dullness and ? friction rub heard.) situation discussed with patient and and she is feeling better already so will reassess response overnight. boh Onset of Symptoms: Reports: Sudden Duration of Symptoms: Reports: Day(s): (4), Getting Worse Location: Reports: Chest Quality: Reports: Sharp Severity: Moderate Improves with: Reports: None Worsens with: Reports: Breathing Associated Symptoms: Reports: Cough, Fever/Chills, Loss of Appetite, Malaise, Nausea/Vomiting, Shortness of Breath Other HPI/Comments: left pleurisy Assessment/Plan Comment:: [age] year old female with fever chills cough body aches and malaise loss of appetite 4 days ago. nauseated but no vomiting . increasing left back pain and pleurisy left flank developing today . infl screen pos. and covid neg but no vaccinations to either. given i.v fluids for low b.p in e.r. p.e. vs as noted patient sats 92 rr 22 b.p 96/64 skin warm and perfusion good. tongue dry. throat mild redness. shows crackles in left and rt posterior lung umanzor. ? friction rub left anterior splinting slightly , cor rrr 112 abd benign. ext. no clubbing /cap refill good. neuro aox4 minor chest xray bilateral lower lobe infiltrates (lobar on left.) lab normal d dimer.43 normal. influenza a + /// cvoid -. assess: influenza with secondary pneumonia start Rocephin and azithromycin for community type pneumonia and consider ct scan for ruling out empyema (pleurisy left sided dullness and ? friction rub heard.) situation discussed with patient and and she is feeling better already so will reassess response overnight. boh - Mortality Measure Prognosis:: Good Diagnosis: Stroke: No - Discharge Data Discharge Date: 07/15/21 Discharge Disposition: Home, Self-Care 01 Condition: Good - Referral to Home Health Primary Care Physician: Milind Rodriguez MD - Discharge Diagnosis/Problem(s) (1) Pneumococcal pneumonia (streptococcus pneumoniae pneumonia) SNOMED Code(s): 752190233 ICD Code: J13 - PNEUMONIA DUE TO STREPTOCOCCUS PNEUMONIAE Status: Acute (2) Acute respiratory failure SNOMED Code(s): 23279067 ICD Code: J96.00 - ACUTE RESPIRATORY FAILURE, UNSP W HYPOXIA OR HYPERCAPNIA Status: Acute Priority: High Qualifiers: Respiratory failure complication: hypoxia Qualified Code(s): J96.01 - Acute respiratory failure with hypoxia (3) Thrombocytopenia SNOMED Code(s): 320491942 ICD Code: D69.6 - THROMBOCYTOPENIA, UNSPECIFIED Status: Acute Priority: Medium Onset Date: ~07/07/21 Problem Details: will need eval . (4) Influenza A SNOMED Code(s): 389022731 ICD Code: J10.1 - FLU DUE TO OTH IDENT INFLUENZA VIRUS W OTH RESP MANIFEST Status: Acute Priority: Medium Onset Date: ~07/07/21 Problem Details: too late for tamiflu (5) Sepsis due to Streptococcus pneumoniae SNOMED Code(s): 296961158 ICD Code: A40.3 - SEPSIS DUE TO STREPTOCOCCUS PNEUMONIAE Status: Acute - Patient Summary/Data Consults: Consultations 07/07/21 20:51 Respiratory Care Assess and Treatment [CONS] Routine Hospital Course: 07/08/2021 The patient is a 60-year-old lady who had been admitted secondary to influenza A and pneumonia. She is on antibiotics and these will be continued. The patient's oxygen support will be continued to keep her saturations around 92%. She is on a regular diet. The patient also has DVT prophylaxis with the use of Lovenox and is to be continued. She also has a history of pancytopenia and repeat laboratory studies have been ordered. Repeat chest x-ray has been ordered for the morning. We will monitor her platelets closely. There is 109,000 now. The patient has been encouraged to ambulate. The patient also reports that she has history of hypotension and is still on pressors. These will be weaned as needed to help keep her pressures normalized. The patient has been completely asymptomatic with regards to her hypotension. The patient should be appropriate for discharge in 1 to 2 days depending on pressor support. 07/09/2021 The patient is a 60-year-old lady who is doing much better today. She is still requiring pressors to keep her blood pressure up however I have ordered her pressors to be tapered and the patient should be able to tolerate a systolic blood pressure in the low 90s millimeters of mercury. She does have a history of hypotension. I have also advanced the patient's diet to regular diet as tolerated in the case that the patient might be salt sensitive with regards to her hypotension. The patient will be continued on her antibiotics. Repeat chest x-ray shows increasing density possibly a pleural effusion on left side. Patient's oxygen will also be continued with titration to keep her saturations around 92%. She is also on Lovenox for DVT prophylaxis. Her thrombocytopenia has remained stable. Repeat laboratory studies have been ordered for the morning. The patient also has been encouraged to ambulate. July 10, 2021 60-year-old female with sepsis secondary to influenza A and streptococcal pneumoniae. Patient has respiratory failure with on high flow nasal cannula. Patient will be started on Tamiflu for her severe influenza A. Fortunately, they were able to wean off her pressors yesterday and blood pressures have been stable above 90 systolic. Patient's baseline is in the 90s systolic. Patient was started on high-dose Solu-Medrol yesterday with Levaquin. She is also on Rocephin 2 g every 24 hours. Rocephin should cover streptococcal pneumonia so Levaquin will be discontinued. Patient's lungs were without any wheezing and I see no clear benefit from Solu-Medrol at this time. I am going to hold the Solu-Medrol and recheck in the morning. Platelets are down to 108,000, likely secondary to sepsis. July 11, 2021 60-year-old female with influenza and streptococcal pneumonia admitted initially with sepsis continues on high flow nasal cannula. Patient has some mild wheezing this morning and will restart Solu-Medrol at a lower dose of 40 mg every 8 hours. Continue with Rocephin. Sensitivities for the streptococcal pneumoniae returned sensitive to Rocephin. Lab work shows improving CRP of 8.9 and a lower white count of 8.5. Platelets have increased to 130,000. The above is reassuring. July 12, 2021 60-year-old female admitted with sepsis, streptococcal pneumonia, and influenza A is stable but continues on high flow nasal cannula at 40 L and 60% FiO2. White count is normal at 5.9 and CRP is down to 4.7. She is on day 6 of Rocephin out of 7. Blood cultures did grow out streptococcal pneumonia with repeat cultures negative so far. Echocardiogram was done this morning. We will continue to wean off of O2 as tolerated. She is on methylprednisolone 40 mg every 8 hours. We will reduce that to every 12 hours. Platelets have improved to 136. July 13, 2021 60-year-old female admitted with sepsis, strep coccal pneumonia and bacteremia, and influenza A continues to improve. She is currently on 6 L nasal cannula with oxygen saturations above 90%. No labs today. Preliminary repeat blood cultures are negative so far. She has completed 7 days of Rocephin. Continue to wean off methylprednisolone. July 14, 2021 60-year-old female with sepsis secondary to streptococcal pneumonia and i nfluenza A continues to improve. She is down to 2 L nasal cannula at rest and 4 L nasal cannula with activity. Patient is still a bit too weak to leave today. She will be switched over to oral antibiotics and another day of IV steroids. Plan will be to discharge her home tomorrow on O2. Lab work showed normal CBC and CMP except for a low albumin of 2.1. CRP is down to 1. 25 hydroxy vitamin D is low at 19.5. I will recommend 5000 international units daily and recheck in a couple of months. July 15, 2021 60-year-old female admitted with sepsis, pneumococcal pneumonia, and influenza A continues on 2 L nasal cannula. She is feeling much stronger today. She will be discharged on 2 L at rest and 4 L with activity. She will be discharged on cefdinir 3 mg twice daily for 3 more days and prednisone 50 mg tomorrow and the next day. She will also continue on the vitamin D 3 5000 units that she was started on in the hospital secondary to low vitamin D. Follow-up with her primary care provider. VTE prophylaxis with Lovenox CODE STATUS: Full code - Patient Instructions Diet: Usual Diet as Tolerated Activity: As Tolerated Driving: Do Not Drive Showering/Bathing: May Shower Other/Special Instructions: Follow up with your PCP next week. Check you oxygen level 2-3 times a day or when you feel tired, short of breath, or poorly. - Discharge Plan *PRESCRIPTION DRUG MONITORING PROGRAM REVIEWED*: No *COPY OF PRESCRIPTION DRUG MONITORING REPORT IN PATIENT VAUGHN: No Prescriptions/Med Rec: Cefdinir [Omnicef] 300 mg PO BID #6 cap predniSONE [Prednisone] 50 mg PO DAILY #2 tablet Cholecalciferol (Vitamin D3) [Vitamin D3] 5,000 unit PO DAILY #30 tablet Home Medications: Home Meds Cefdinir [Omnicef] 300 mg PO BID #6 cap 07/15/21 [Rx] Cholecalciferol (Vitamin D3) [Vitamin D3] 5,000 unit PO DAILY #30 tablet 07/15/21 [Rx] Cyanocobalamin (Vitamin B12) [Vitamin B12] 1,000 mcg PO DAILY tablet 07/15/21 [Rx] predniSONE [Prednisone] 50 mg PO DAILY #2 tablet 07/15/21 [Rx] Oxygen Therapy Mode: Nasal Cannula Oxygen Flow Rate (L/min): 2 Patient Handouts: Influenza, Adult, [id number], Sepsis, Diagnosis, Adult, Steps to Quit Smoking Forms: ED Department Discharge Referrals: Milind Rodriguez MD [Primary Care Provider] - 07/22/21 1:00 pm (Please arrive at 12:45 for check in) - Discharge Summary/Plan Comment DC Time >30 min.: No Total # of Minutes for Discharge Time: 20 Total time spent includes seeing the patient, doing discharge paperwork, and arranging care. - General Info Date of Service: 07/15/21 Admission Dx/Problem (Free Text: Admission Diagnosis/Problem Admission Diagnosis/Problem Hypoxia/influenza/pneumonia/pleurisy Subjective Update: The patient is a 60-year-old lady who was admitted to acute hospitalization on July 07, 2021 due to hypoxia, influenza A and pneumonia secondary to strep pneumonia. She is on 2 L nasal cannula at rest and 4 L with activity. She states she is ready to go home. Functional Status: Reports: Pain Controlled - Review of Systems General: Reports: No Symptoms HEENT: Reports: No Symptoms Pulmonary: Reports: Cough Cardiovascular: Reports: No Symptoms Gastrointestinal: Reports: No Symptoms Musculoskeletal: Reports: No Symptoms Neurological: Reports: No Symptoms - Patient Data Vitals - Most Recent: Last Vital Signs Temp 97.2 F 07/15/21 07:27 Pulse 52 L 07/15/21 07:27 Resp 18 07/15/21 07:27 BP 98/67 07/15/21 07:27 Pulse Ox 93 L 07/15/21 07:27 Weight - Most Recent: 132 lb 11.2 oz I&O - Last 24 hours: Intake & Output 07/14/21 07/15/21 07/15/21 22:59 06:59 14:59 Intake Total 1315 1050 Output Total 1700 Balance 1315 -650 Lab Results - Last 24 hrs: Laboratory Results - last 24 hr 07/14/21 Range/Units 09:24 Vitamin D 25-Hydroxy 19.5 L (30.0-100.0) ng/ml JESSICA Results - Last 24 hrs: Microbiology 07/07/21 17:36 Blood Culture - Final Blood - Venous Streptococcus Pneumoniae Med Orders - Current: Current Medications Acetaminophen (Acetaminophen 325 Mg Tab) 650 mg PO Q4H PRN PRN Reason: Pain (Mild 1-3)/fever Hydrocodone Bitart/Acetaminophen (Acetaminophen/Hydrocodone 325-5 Mg Tab) 2 tab PO Q4H PRN PRN Reason: Pain (moderate 4-6) Last Admin: 07/08/21 18:59 Dose: 2 tab Documented by: Albuterol (Albuterol 0.083% 2.5 Mg/3 Ml Neb Soln) 2.5 mg NEB Q2H PRN PRN Reason: Shortness Of Breath/wheezing Last Admin: 07/12/21 19:44 Dose: 2.5 mg Documented by: Albuterol/Ipratropium (Albuterol/Ipratropium 3.0-0.5 Mg/3 Ml Neb Soln) 3 ml NEB Q4HRRT PRN PRN Reason: sob/wheezing Last Admin: 07/14/21 08:00 Dose: 3 ml Documented by: Benzonatate (Benzonatate 100 Mg Cap) 200 mg PO Q8H PRN PRN Reason: Cough Cefdinir (Cefdinir 300 Mg Cap) 300 mg PO BID [facility] Last Admin: 07/15/21 09:12 Dose: 300 mg Documented by: Cholecalciferol (Cholecalciferol (Vitamin D3) 5,000 Unit Tab) 5,000 unit PO DAILY [facility] Last Admin: 07/15/21 09:12 Dose: 5,000 unit Documented by: Cyanocobalamin (Cyanocobalamin (Vitamin B12) 1,000 Mcg Tab) 1,000 mcg PO DAILY [facility] Last Admin: 07/15/21 09:11 Dose: 1,000 mcg Documented by: Enoxaparin Sodium (Enoxaparin 40 Mg/0.4 Ml Syringe) 40 mg SUBCUT BEDTIME [facility] Last Admin: 07/14/21 21:01 Dose: 40 mg Documented by: Guaifenesin/Codeine Phosphate (Codeine/Guaifenesin 10-100 Mg/5 Ml Syrup 5 Ml Cup) 5 ml PO Q4H PRN PRN Reason: Cough Last Admin: 07/13/21 09:59 Dose: 5 ml Documented by: Norepinephrine Bitartrate 4 mg (/ Dextrose/Water) 250 mls @ 7.5 mls/hr IV TITRATE [facility]; Protocol Last Titration: 07/09/21 17:26 Dose: 0 mcg/min, 0 mls/hr Documented by: Ibuprofen (Ibuprofen 600 Mg Tab) 600 mg PO Q6H PRN PRN Reason: Pain (moderate 4-6) Last Admin: 07/10/21 00:41 Dose: 600 mg Documented by: Methylprednisolone Sodium Succinate (Methylprednisolone Sodium Succinate 40 Mg/1 Ml Sdv) 40 mg IVPUSH Q12H [facility] Last Admin: 07/15/21 09:11 Dose: 40 mg Documented by: Ondansetron HCl (Ondansetron 4 Mg Tab.Dis) 8 mg PO Q6H PRN PRN Reason: Nausea/Vomiting Last Admin: 07/09/21 11:59 Dose: 8 mg Documented by: Oseltamivir Phosphate (Oseltamivir 75 Mg Cap) 75 mg PO BID [facility] Last Admin: 07/15/21 09:11 Dose: 75 mg Documented by: Sodium Chloride (Sodium Chloride 0.9% 10 Ml Syringe) 10 ml FLUSH ASDIRECTED PRN PRN Reason: Keep Vein Open Last Admin: 07/07/21 17:16 Dose: 10 ml Documented by: Thiamine HCl (Thiamine 200 Mg/2 Ml Mdv) 100 mg IVPUSH DAILY [facility] Last Admin: 07/15/21 09:10 Dose: 100 mg Documented by: Zolpidem Tartrate (Zolpidem 5 Mg Tab) 5 mg PO BEDTIME PRN PRN Reason: Sleep Last Admin: 07/14/21 21:01 Dose: 5 mg Documented by: Discontinued Medications Enoxaparin Sodium (Enoxaparin 30 Mg/0.3 Ml Syringe) 30 mg SUBCUT BEDTIME [facility] Last Admin: 07/14/21 07:43 Dose: Not Given Documented by: Enoxaparin Sodium (Enoxaparin 30 Mg/0.3 Ml Syringe) 30 mg SUBCUT BEDTIME [facility] Last Admin: 07/08/21 00:05 Dose: 30 mg Documented by: Sodium Chloride (Normal Saline) 1,000 mls @ 999 mls/hr IV ONETIME ONE Stop: 07/07/21 19:30 Last Admin: 07/07/21 17:30 Dose: 999 mls/hr Documented by: Sodium Chloride (Normal Saline) 1,000 mls @ 999 mls/hr IV ONETIME ONE Stop: 07/07/21 19:37 Last Admin: 07/07/21 18:38 Dose: 999 mls/hr Documented by: Ampicillin Sodium/Sulbactam (Sodium 3 gm/ Sodium Chloride) 100 mls @ 200 mls/hr IV ONETIME ONE Stop: 07/07/21 19:38 Last Admin: 07/14/21 07:43 Dose: Not Given Documented by: Ceftriaxone Sodium 2 gm/ (Sodium Chloride) 100 mls @ 200 mls/hr IV ONETIME ONE Stop: 07/07/21 19:40 Last Admin: 07/07/21 19:36 Dose: 200 mls/hr Documented by: Lactated Ringer's (Ringers, Lactated) Confirm Administered Dose 1,000 mls @ as directed .ROUTE .STK-MED ONE Stop: 07/07/21 20:53 Last Admin: 07/08/21 07:32 Dose: Not Given Documented by: Lactated Ringer's (Ringers, Lactated) 1,000 mls @ 125 mls/hr IV ASDIRECTED ALFONSO Last Admin: 07/09/21 12:43 Dose: 125 mls/hr Documented by: Ceftriaxone Sodium 2 gm/ (Sodium Chloride) 100 mls @ 200 mls/hr IV BEDTIME [facility] Last Admin: 07/13/21 20:14 Dose: 200 mls/hr Documented by: Azithromycin 500 mg/ Sodium (Chloride) 250 mls @ 250 mls/hr IV Q24H [facility] Last Admin: 07/08/21 22:30 Dose: 250 mls/hr Documented by: Sodium Chloride (Normal Saline) 500 mls @ 998.89 mls/hr IV .BOLUS ONE Stop: 07/07/21 21:06 Last Admin: 07/07/21 21:09 Dose: 998.89 mls/hr Documented by: Lactated Ringer's (Ringers, Lactated) 1,000 mls @ 125 mls/hr IV ASDIRECTED [facility] Last Admin: 07/09/21 01:01 Dose: 125 mls/hr Documented by: Sodium Chloride (Normal Saline) 500 mls @ 998.89 mls/hr IV .BOLUS ONE Stop: 07/08/21 01:16 Last Admin: 07/08/21 01:41 Dose: 998.89 mls/hr Documented by: Levofloxacin/Dextrose 750 mg/ (Premix) 150 mls @ 100 mls/hr IV Q24H [facility] Last Admin: 07/09/21 16:01 Dose: 100 mls/hr Documented by: Ketorolac Tromethamine (Ketorolac 30 Mg/Ml Sdv) 30 mg IVPUSH ONETIME ONE Stop: 07/07/21 17:20 Last Admin: 07/07/21 17:57 Dose: 30 mg Documented by: Ketorolac Tromethamine (Ketorolac 30 Mg/Ml Sdv) 30 mg IVPUSH ONETIME ONE Stop: 07/07/21 19:12 Last Admin: 07/07/21 19:34 Dose: 30 mg Documented by: Methylprednisolone Sodium Succinate (Methylprednisolone Sodium Succinate 125 Mg/2 Ml Sdv) 125 mg IVPUSH Q8H [facility] Last Admin: 07/10/21 05:14 Dose: 125 mg Documented by: Methylprednisolone Sodium Succinate (Methylprednisolone Sodium Succinate 40 Mg/1 Ml Sdv) 40 mg IVPUSH Q8H [facility] Last Admin: 07/13/21 09:49 Dose: 40 mg Documented by: Methylprednisolone Sodium Succinate (Methylprednisolone Sodium Succinate 40 Mg/1 Ml Sdv) Confirm Administered Dose 40 mg .ROUTE .STK-MED ONE Stop: 07/14/21 09:13 Last Admin: 07/14/21 09:34 Dose: Not Given Documented by: Ondansetron HCl (Ondansetron 4 Mg/2 Ml Sdv) Confirm Administered Dose 4 mg .ROUTE .STK-MED ONE Stop: 07/07/21 17:13 Last Admin: 07/07/21 17:58 Dose: Not Given Documented by: Ondansetron HCl (Ondansetron 4 Mg/2 Ml Sdv) 4 mg IVPUSH ONETIME ONE Stop: 07/07/21 17:58 Last Admin: 07/07/21 17:58 Dose: 4 mg Documented by: Pantoprazole Sodium (Pantoprazole 40 Mg Vial) 40 mg .XX ONETIME ONE Stop: 07/07/21 20:52 Last Admin: 07/08/21 07:32 Dose: Not Given Documented by: Pantoprazole Sodium (Pantoprazole 40 Mg Vial) 40 mg IVPUSH ONETIME ONE Stop: 07/07/21 23:46 Last Admin: 07/08/21 00:06 Dose: 40 mg Documented by: - Exam Quality Assessment: Reports: Supplemental Oxygen General: Reports: Alert, Oriented HEENT: Reports: Pupils Equal, Mucous Membr. Moist/[place] Neck: Reports: Supple Lungs: Reports: Normal Respiratory Effort, Decreased Breath Sounds Cardiovascular: Reports: Regular Rate, Regular Rhythm GI/Abdominal Exam: Normal Bowel Sounds, Soft, No Organomegaly, No Distention Extremities: Normal Inspection, Normal Range of Motion, Non-Tender, No Pedal Edema, Normal Capillary Refill Skin: Reports: Warm, Dry, Intact Psy/Mental Status: Reports: Alert, Normal Affect, Normal Mood
== END 2021-07-15 12:09 | disposition home or self-care (01) | DRG 720 ==
LOC: JD.ED 15:55 → JD.ICU 19:00 → JD.MS 07-09 09:56 → JD.ICU 07-09 10:10 → JD.MS 07-14 16:00
PROVIDERS: ADMIT Pediatrics; ATTEND Pediatrics
PROC: 5A0955A Assistance with Respiratory Ventilation, Greater than 96 Consecutive Hours, High Flow/Velocity Cannula (ICD-10-PCS; principal; 2021-07-07)
DX: A40.3 Sepsis due to Streptococcus pneumoniae (principal); J10.1 Influenza due to other identified influenza virus with other respiratory manifestations; D69.6 Thrombocytopenia, unspecified; J13 Pneumonia due to Streptococcus pneumoniae; J96.01 Acute respiratory failure with hypoxia; H54.7 Unspecified visual loss; F17.210 Nicotine dependence, cigarettes, uncomplicated; R07.81 Pleurodynia; R04.2 Hemoptysis; Z20.822 Contact with and (suspected) exposure to COVID-19; Z88.2 Allergy status to sulfonamides; Z88.1 Allergy status to other antibiotic agents
CPT/HCPCS: 0241U; 36415; 71045; 71045-26; 80053; 81001; 82306; 83605; 83735; 85025; 85379; 85652; 86140; 87040; 87077; 87086; 87150; 87186; 93306; 94640; 94667; 94668; 96374; 96375; 99285-25; A9270-GY; C9113; J0456; J0696; J1650; J1885; J1956; J2405; J2920; J2930; J3411; J7030; J7050; J7060; J7120; J7620-GY

== ENCOUNTER 2021-07-25 10:07 | Emergency (ER) | payer BC ==
[2021-07-25 10:22] VITALS: BP 102/62
[2021-07-25] MEDS ORDERED: Sodium Chloride 0.9% 10 ML Syringe FLUSH PRN ×2 (10:44→11:21)
[2021-07-25] MEDS ORDERED: Levofloxacin/Dextrose 5%-Water 750 MG in Premix Bag 1 BAG IV ONE (11:25)
[2021-07-25] MEDS ORDERED: Sodium Chloride 0.9% 100 ML IV ONE (13:31)
[2021-07-25] MEDS ORDERED: Iopamidol 755 Mg/ML 100 ML Bottle IVPUSH ONE (13:31)
[2021-07-25 14:05] VITALS: PULSE 82
== END 2021-07-25 14:48 | disposition home or self-care (01) ==
LOC: JD.ED 10:07
DX: R09.1 Pleurisy (principal); J44.9 Chronic obstructive pulmonary disease, unspecified; Z88.1 Allergy status to other antibiotic agents
CPT/HCPCS: 36415; 71046; 71275; 80053; 83605; 83735; 84484; 85025; 85379; 85610; 86140; 93005; 96365; 99284; J1956; Q9967

== ENCOUNTER 2023-07-12 07:36 | Day surgery (SDC) | payer BC ==
[2023-07-12] MEDS ORDERED: Sodium Chloride 0.9% 10 ML Syringe FLUSH PRN (08:03)
[2023-07-12] MEDS ORDERED: Lactated Ringers 1,000 ML IV SCH (08:15)
[2023-07-12] MEDS ORDERED: Propofol 200 MG/20 ML SDV ONE (08:28)
[2023-07-12] MEDS ORDERED: fentaNYL 100 MCG/2 ML SDV ONE (08:29)
[2023-07-12] MEDS ORDERED: Lidocaine 2% 5 ML SDV ONE (08:30)
[2023-07-12] MEDS ORDERED: Sodium Chloride 0.9% 10 ML Syringe FLUSH SCH (09:00)
[2023-07-12 10:20] VITALS: BP 108/67; PULSE 70
== END 2023-07-12 10:10 | disposition home or self-care (01) ==
LOC: JD.SDS 07:36
PROVIDERS: ATTEND Surgery
DX: K57.30 Diverticulosis of large intestine without perforation or abscess without bleeding (principal); K29.70 Gastritis, unspecified, without bleeding; K21.9 Gastro-esophageal reflux disease without esophagitis; R10.13 Epigastric pain; K63.5 Polyp of colon; Z85.038 Personal history of other malignant neoplasm of large intestine; Z79.899 Other long term (current) drug therapy; Z79.51 Long term (current) use of inhaled steroids; Z87.891 Personal history of nicotine dependence; Z88.2 Allergy status to sulfonamides; Z91.011 Allergy to milk products
CPT/HCPCS: 43235; 45378; J2704; J3010; J7120; J3490

== ENCOUNTER 2024-01-06 15:51 | Emergency (ER) | payer BC ==
[2024-01-06] MEDS: Sodium Chloride 0.9% 1,000 ML IV SCH (17:50)
[2024-01-06] MEDS: Propofol 200 MG/20 ML SDV IVPUSH ONE (17:52)
[2024-01-06] MEDS: Sodium Chloride 0.9% 1,000 ML ONE (18:27)
[2024-01-06] MEDS: Ketorolac 30 MG/ML SDV IVPUSH ONE (18:46)
[2024-01-06 19:59] VITALS: PULSE 62
[2024-01-06 20:00] VITALS: BP 128/76
== END 2024-01-06 19:58 | disposition home or self-care (01) ==
LOC: JD.ED 15:51
DX: S52.502A Unspecified fracture of the lower end of left radius, initial encounter for closed fracture (principal); F17.210 Nicotine dependence, cigarettes, uncomplicated; Z88.2 Allergy status to sulfonamides; Z88.8 Allergy status to other drugs, medicaments and biological substances; V86.55XA Driver of 3- or 4- wheeled all-terrain vehicle (ATV) injured in nontraffic accident, initial encounter
CPT/HCPCS: 25605; 71100; 73100; 73110; 96374; 99152; 99153; 99284; J1885; J2704; J7030